=== PATIENT | female | born 1945 ===

== ENCOUNTER → 2017-10-22 10:54 | Outpatient (CLI) | payer MEDICARE, OTHER, SELFPAY ==
[2017-10-22 11:27] LABS: Absolute Basophil Count 0.02 k/cumm (0.0-0.2); Absolute Eosinophil Count 0.13 k/cumm (0.0-0.7); Absolute Lymphocyte Count 1.74 k/cumm (1.2-3.4); Absolute Monocyte Count 0.42 k/cumm (0.11-0.7); Absolute Neutrophil Count 2.97 k/cumm (1.2-6.7); Basophils % 0.4; Eosinophils % 2.5; HCT 41.7 % (36.0-46.0); HGB 13.6 g/dL (12.0-15.5); Mean Corp. HGB Concentration 32.6 g/dL (32.0-36.0); Mean Corpuscular Hemoglobin 31.4 pg (27.0-33.0); Mean Corpuscular Volume 96.3 fL (80-95); Mean Platelet Volume 9.9 fL (8.0-11.0); Neutrophils % 56.1; Platelet Count 201 x1000/uL (130-400); RBC 4.33 m/cumm (4.00-5.20); RBC Distribution Width 12.6 % (11.7-14.6); White Blood Cell Count 5.28 k/cumm (4.4-10.8)
[2017-10-22 12:15] LABS: TSH (W/Ref FT4) 2.36 uIU/mL (0.358-3.74)
== END ==
PROVIDERS: PCP Nurse Practitioner; Visit Provider Nurse Practitioner
DX: E11.9 Type 2 diabetes mellitus without complications (principal); R53.83 Other fatigue; R68.89 Other general symptoms and signs
CPT/HCPCS: 36415; 84443; 85025

== ENCOUNTER 2017-12-21 16:30 | Outpatient (CLI) | payer MEDICARE, OTHER, SELFPAY ==
--- NOTE | 2017-12-21 16:25 | DI.MAMMO_ITS ---
SYMPTOM/DIAGNOSIS: SCREENING, Z12.31 MAMMOGRAMS: Mammograms were interpreted according to the usual protocol including computer analysis with CAD system, tomosynthesis and C view imaging. Comparison with prior examinations. Breast density B. No masses or microcalcifications are seen. There is nothing to suggest malignancy. IMPRESSION: Negative mammogram. Routine screening is recommended. Category I. MQSA ASSESSMENT OF FINDINGS: Negative. Category 1. Patient will receive a letter notifying them of these results. BI-RADS category B. There are scattered areas of fibroglandular density.
== END 2017-12-21 16:50 ==
PROVIDERS: PCP Nurse Practitioner; Visit Provider Nurse Practitioner
DX: Z12.31 Encounter for screening mammogram for malignant neoplasm of breast (principal)
CPT/HCPCS: 77063; 77067

== ENCOUNTER 2018-04-27 07:16 | Outpatient (CLI) | payer MEDICARE, OTHER, SELFPAY ==
[2018-04-27 08:56] LABS: COMMENT (LAB VIEW ONLY) 51.97 mg/dL; Microalb ug/mg Crea 5.8 ug/mg Cr
[2018-04-27 09:23] LABS: ALT 35 U/L (12-78); AST 24 U/L (15-37); Albumin 4.1 g/dL (3.4-5.0); Alkaline Phosphatase 71 U/L (46-116); Anion Gap 8.3 mmol/L (3-11); BUN 16 mg/dL (7-18); Bilirubin, Total 0.4 mg/dL (0.2-1.0); CO2 30.7 mmol/L (21.0-32.0); CREATININE 0.81 mg/dL (0.55-1.02); Calcium 9.5 mg/dL (8.5-10.1); Chloride 102 mmol/L (98-107); Cholesterol 172 mg/dL (50-200); Ferritin 135 ng/mL (8-388); Glucose 153 mg/dL (70-100); HDL Cholesterol 49 mg/dL (40-60); LDL CHOLESTEROL 105 mg/dL (<100); Sodium 141 mmol/L (136-145); TSH (W/Ref FT4) 4.07 uIU/mL (0.358-3.74); Total Protein 7.8 g/dL (6.4-8.2); Triglyceride 83 mg/dL (30-150); Vitamin B12 1275 pg/mL (193-986)
[2018-04-27 09:52] LABS: FREE T4 0.94 ng/dL (0.76-1.46)
[2018-04-29 06:39] LABS: Vitamin D 25 Total 58.1 ng/ml (30-100)
== END 2018-04-27 07:36 ==
PROVIDERS: PCP Nurse Practitioner; Visit Provider Nurse Practitioner
DX: I10 Essential (primary) hypertension (principal); E78.5 Hyperlipidemia, unspecified; E11.9 Type 2 diabetes mellitus without complications; R53.83 Other fatigue
CPT/HCPCS: 80053; 80061; 82306; 83721; 82043; 82570; 82607; 82728; 84439; 84443

== ENCOUNTER 2019-04-21 20:53 | Observation (INO) | payer MEDICARE, OTHER, SELFPAY ==
[2019-04-21 20:56] VITALS: BP 160/121; PULSE 79; RESP 25; O2SAT 99
--- NOTE | 2019-04-21 20:57 | ED.GENADUL_ITS ---
Discharge Plan Disposition Patient Disposition: [facility] INPATIENT Condition: Fair Discharge Details Chief Complaint: Chest Pain Clinical Impression: Chest pain Primary Care Provider: Shilpi Castañeda ED Provider: Niraj [place] Meds and New Rx's Prescriptions: No Action metformin 500 mg tablet extended release 24hr 500 mg PO BID Qty: 180 RF: 3 calcium carbonate [Antacid Ext Str (calcium carb)] 300 mg (750 mg) tablet,chewable 300 mg PO .COMPLEX PRNRF: 0 acyclovir 800 mg tablet 800 mg PO Q8H Qty: 21 RF: 1 VALERIAN 400 MG capsule 400 mg PO RF: 0 aspirin [Aspir-Low] 81 MG tablet,delayed release (DR/EC) 81 mg PO DAILY RF: 0 acetaminophen 325 MG tablet 325 mg PO PRN RF: 0 vitamin B complex 1 EACH capsule 1 ea PO DAILY RF: 0 glucosamine sulfate 2KCl 1,000 MG tablet 1,000 mg PO BID RF: 0 acetylcarnitine 500 MG capsule 500 mg PO DAILY RF: 0 chromium amino acid chelate 400 MCG tablet 200 mcg PO BID RF: 0 Lulú-C with Bioflavonoids 1 EACH tablet 1 ea PO DAILY RF: 0 magnesium citrate 100 MG tablet 200 mg PO DAILY RF: 0 oil of oregano 150 DAILY RF: 0 Micky-E (Enteric Coated) 200 MG tablet,delayed release (DR/EC) 200 mg PO DAILY RF: 0 MindscapeUCH ULTRA TEST STRIPS 1 EACH strip 1 ea Miscellaneous DAILY Qty: 1 RF: 11 lysine 500 mg tablet 500 mg PO DAILY PRNRF: 0 cbd PO DAILY PRN PRNRF: 0 cod liver oil Capsule 1 cap PO DAILY RF: 0 Estring 2 mg (7.5 mcg /24 hour) ring 1 vag ring VG [id number] Qty: 1 RF: 6 Medical Decision Making Patient presenting with 2 hours of worsening chest pain that is described as pressure but also pleuritic. Has shortness of breath but more so in that it hurts to take a breath. Some radiation to her shoulders and back. Differential includes dissection, PE, ACS, chest wall pain. She is status post cholecystectomy so not referred gallbladder pain. IV established. Laboratory studies ordered. EKG is nondiagnostic. Patient given aspirin and nitroglycerin. CT scan of the chest ordered. 23:15 - Patient's labs significant for elevated WBC to 14.76 with normal Hgb. She has multiple electrolyte abnormalities with sodium of 130, potassium of 3.2, magnesium of 1.5 with normal kidney function. She is not on diuretics. She is getting IVF and is ordered for oral potassium and IV magnesium replacement. First troponin is negative. CTA of chest shows no PE or dissection. There is evidence of bronchitis/bronchiolitis but no pneumonia. There is also suggestion of small pericardial effusion/thickening which is suggestive of pericarditis. This would fit her clinical picture despite there being no EKG changes currently to support that. In any event her HEART score is a 4 and she should be admitted for serial enzymes. Would consider pericarditis before ACS at this point though. Discussed all of the above with patient and . Discussed with hospitalist. Patient will be admitted overnight for further evaluation and monitoring. Medical Records Medical records reviewed: Yes I reviewed the patient's medical records. Lab Data Lab results reviewed: Yes I reviewed the patient's lab results. ECG Data Attestation: I personally reviewed and interpreted this ECG (s) as follows: Prior ECG tracings: available for review Interpretation: Sinus rhythm at 89. Normal intervals and axis. Nonspecific ST changes but no acute findings. Nondiagnostic. HPI General Mode of arrival: wheelchair . Date/Time Provider Initiated Documentation: 04/21/19 20:54 . Limitations to Documentation: no limitations . Information obtained by: patient, RN notes reviewed and old records reviewed . HPI Narrative: Patient presents to ED with complaint of severe substernal chest pain/pressure that she reports is worse with breathing or movement. Onset was about 7 PM and worsened to the point where she decided she needed to be evaluated. She reports that there was some pain in her shoulders and back although now seems to mostly be in the chest. There is no nausea vomiting. There is no lightheadedness or dizziness. There is no diaphoresis. She does feel short of breath but more so that she cannot take a deep breath because of pain. She has never had this previously. She does have history of diabetes and hyperlipidemia but is no prior history of cardiac disease. She does report being ill with a URI for the last week or so although those symptoms have been resolving. She has no leg pain or leg swelling. Related Data Home Medications Medication Instructions Recorded Confirmed Valerian 400 mg PO 05/04/12 10/19/18 aspirin [Aspir-Low] 81 mg PO DAILY tab-cap 09/14/12 04/21/19 Oil Of Oregano 150 DAILY 01/29/17 10/19/18 acetaminophen 325 mg PO PRN 01/29/17 04/21/19 acetylcarnitine 500 mg PO DAILY 01/29/17 04/21/19 ascorbate calcium-bioflavonoid 1 ea PO DAILY 01/29/17 04/21/19 [Lulú-C 1,000 Mg Tablet] chromium amino acid chelate 200 mcg PO BID 01/29/17 04/21/19 glucosamine sulfate 2KCl 1,000 mg PO BID 01/29/17 04/21/19 magnesium citrate 200 mg PO DAILY 01/29/17 04/21/19 vitamin B complex 1 ea PO DAILY 01/29/17 04/21/19 s-adenosylmethionine [Micky-E] 200 mg PO DAILY 05/26/17 04/21/19 lysine 500 mg tablet 500 mg PO DAILY PRN 04/21/18 04/21/19 metformin 500 mg tablet,extended 500 mg PO BID #180 tab-cap 04/21/18 04/21/19 release 24hr acyclovir 800 mg tablet 800 mg PO Q8H #21 tab 10/19/18 04/21/19 calcium carbonate 300 mg (750 mg) 300 mg PO .COMPLEX PRN 10/19/18 04/21/19 chewable tablet cbd PO DAILY PRN PRN 10/19/18 cod liver oil 1 cap PO DAILY cap 10/19/18 04/21/19 estradiol 1 vag ring VG [id number] #1 vag.ring 12/09/18 04/21/19 Previous Rx's Medication Instructions Recorded metformin 500 mg tablet,extended 500 mg PO BID #180 tab-cap 04/21/18 release 24hr acyclovir 800 mg tablet 800 mg PO Q8H #21 tab 10/19/18 estradiol 1 vag ring VG [id number] #1 vag.ring 12/09/18 Allergies Allergy/AdvReac Type Severity Reaction Status Date / Time gluten Allergy Unknown GI Unverified 04/21/19 21:29 paraben Allergy Unknown headache, Unverified 04/21/19 21:29 LINE RIDER lactose Allergy GI Unverified 04/21/19 21:29 formaldehyde AdvReac Headache, Unverified 04/21/19 21:29 LINE RIDER ZIO PATCH Allergy Intermediate red rash, Uncoded 04/21/19 21:29 itching, burning sensation Review of Systems Narrative: 12/06 Review of Systems completed and is negative except as stated above in HPI (Systems reviewed: Const, Eyes, ENT, Resp, CV, GI, , MSK, Skin, Neuro) [facility] Medical History Anxiety disorder, unspecified (Chronic 09/14/12) Chronic low back pain (Chronic 04/01/16) Depression (Chronic 04/01/16) Diabetes mellitus type 2, controlled (Chronic 09/14/12) 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 Hypertensive and tachypneic but no tachycardia and normal room air pulse oximetry. Const: WDWN elderly female moaning and wincing in pain. HEENT: NC/AT. Normal facial exam. Eyes: Normal conjunctiva and sclera. Neck: Supple. Trachea midline. Lungs: Normal respiratory effort. Lungs are clear. Tender to palpation lower left parasternum. Cor: RRR without murmur/gallop. Good distal pulses. GI: Soft. NT/ND. No guarding or rebound. Neuro: A+O x 3. Normal speech, mentation, gait. Cranial nerves II - XII grossly intact. No gross motor or sensory deficit. Ext: No C/C/E. No calf tenderness. Skin: Warm and dry without rash.
[2019-04-21 21:06] VITALS: BP 159/77; PULSE 86; RESP 17; O2SAT 98
[2019-04-21] MEDS: Aspirin 81 MG CHEW 324 MG CH (21:18)
[2019-04-21] MEDS: Lactated Ringers 1,000 ML 125 ML IV (21:25)
[2019-04-21 21:27] VITALS: BP 110/73; PULSE 90; RESP 16; O2SAT 97
[2019-04-21 21:34] LABS: Abs Immature Grans 0.03 k/cumm (0.0-0.09); Absolute Lymphocyte Count 2.35 k/cumm (1.2-3.4); Absolute Monocyte Count 1.18 k/cumm (0.11-0.7); Absolute Neutrophil Count 10.98 k/cumm (1.2-6.7); Basophils % 0.1; Eosinophils % 1.4; HCT 39.4 % (36.0-46.0); HGB 13.6 g/dL (12.0-15.5); Immature Grans % 0.2 %; Lymphocytes % 15.9; Mean Corp. HGB Concentration 34.5 g/dL (32.0-36.0); Mean Corpuscular Hemoglobin 32.4 pg (27.0-33.0); Mean Corpuscular Volume 93.8 fL (80-95); Mean Platelet Volume 9.5 fL (8.0-11.0); Neutrophils % 74.4; Platelet Count 242 x1000/uL (130-400); White Blood Cell Count 14.76 k/cumm (4.4-10.8)
[2019-04-21 21:38] LABS: Absolute Basophil Count 0.01 k/cumm (0.0-0.2); Absolute Eosinophil Count 0.21 k/cumm (0.0-0.7)
[2019-04-21 21:47] LABS: Prothrombin Time 10.1 sec (9.3-11.0)
[2019-04-21 21:52] LABS: ALT 31 U/L (14-59); AST 23 U/L (15-37); Albumin 4.2 g/dL (3.4-5.0); Alkaline Phosphatase 72 U/L (46-116); Anion Gap 11.3 mmol/L (3-11); BUN 17 mg/dL (7-18); Bilirubin, Total 0.5 mg/dL (0.2-1.0); CO2 25.7 mmol/L (21.0-32.0); CREATININE 0.89 mg/dL (0.55-1.02); Chloride 93 mmol/L (98-107); Glucose 162 mg/dL (74-106); Magnesium 1.5 mg/dL (1.8-2.4); Potassium 3.2 mmol/L (3.5-5.1); Sodium 130 mmol/L (136-145); Total Protein 7.9 g/dL (6.4-8.2)
[2019-04-21 21:54] LABS: Troponin I < 0.05 ng/Ml (<0.06)
[2019-04-21 21:59] VITALS: BP 116/73; PULSE 78; RESP 16; O2SAT 97
--- NOTE | 2019-04-21 22:24 | DI.CT_ITS ---
EXAM: CT CHEST PE CTA CLINICAL HISTORY: chest pain, pleuritic; radiates to back TECHNIQUE: Post IV contrast according to pulmonary embolism protocol. COMPARISON: ABD/PELVIS WO W CONTRAST from 10/02/2010 FINDINGS: There is no evidence of pulmonary emboli or aortic dissection. There is a trace pericardial effusio n versus pericardial thickening. The lungs are expiratory and show some motion. No focal area of co nsolidation or effusion is seen. Degenerative changes are seen in the thoracic spine. The visualize d portions of the upper abdomen are unremarkable. IMPRESSION: No evidence of pulmonary emboli or other acute abnormality.
[2019-04-21] MEDS: Normal Saline - Diluent 50 ML VIAL IV (22:32)
[2019-04-21] MEDS: Omnipaque 350 MG/ML 100 ML BTL 64 ML IJ (22:34)
[2019-04-21 22:43] VITALS: BP 116/79; PULSE 89; RESP 16; O2SAT 97
--- NOTE | 2019-04-21 22:57 | DI.VRAD_ITS ---
PROCEDURE INFORMATION: Exam: CT Angiography Chest With Contrast Exam date and time: 04/21/2019 9:14 PM Age: 73 years old Clinical indication: Pleuordynia; Patient HX: Chest pain, pleuritic radiates to back. TECHNIQUE: Imaging protocol: Computed tomographic angiography of the chest with intravenous contrast. 3D rendering: MIP and/or 3D reconstructed images were created by the technologist. Radiation optimization: All CT scans at this facility use at least one of these dose optimization techniques: automated exposure control; mA and/or kV adjustment per patient size (includes targeted exams where dose is matched to clinical indication); or iterative reconstruction. Contrast material: OMNI-PAQUE 350; Contrast volume: 64 ml; Contrast route: IV; COMPARISON: No relevant prior studies available. FINDINGS: Pulmonary arteries: The pulmonary arteries enhance appropriately with no evidence of pulmonary embolism. Aorta: The aorta enhances appropriately without evidence of dissection or aneurysm. Mild aortic ectasia. Thyroid: The visualized thyroid gland demonstrates no gross abnormality. Lungs: Bilateral bronchial wall thickening suggesting bronchitis or bronchial edema.Patchy mild bilateral mosaic alveolar attenuation probably related to bronchitis/bronchiolitis with mild regional air trapping and atelectasis. No consolidative pulmonary infiltrates. No pulmonary nodules or mass lesions are identified. Pleural space: No pleural effusion. No pneumothorax. Heart: Mild cardiomegaly. Small pericardial effusion versus pericardial thickening. Mediastinum: The esophagus is largely contracted but demonstrates no gross abnormality. Lymph nodes: No supraclavicular or axillary adenopathy. No mediastinal or hilar adenopathy. Bones/joints: No acute osseous abnormalities are identified. Soft tissues: The soft tissues of the chest wall demonstrate no acute abnormality. Other findings: Visualized upper abdominal structures are unremarkable. IMPRESSION: 1. No evidence of pulmonary embolism or aortic dissection. 2. Bilateral bronchial wall thickening suggesting bronchitis or bronchial edema. There is also patchy mild bilateral mosaic alveolar attenuation probably related to bronchitis and bronchiolitis with patchy subsegmental atelectasis and regional air trapping. Mild pulmonary edema or patchy pulmonary infiltrates are considered less likely. 3. Small pericardial effusion versus pericardial thickening. Mild pericarditis could produce this appearance. Dictated and Authenticated by: Manny Sharma MD. Ordering:NANDO Healy MD
--- NOTE | 2019-04-21 23:17 | W.PM.HP.N ---
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 She has had a 7-day history of a viral syndrome and more recently was fatigued but did not have significant fever throughout her 7-day illness. her chest CT did reveal some bronchiolitis and possible pericarditis though she is not having typical EKG changes of pericarditis. She is hesitant to take NSAIDs. I will follow-up sed rate in the morning and she will have an echocardiogram with exercise stress test if allowed in the morning. If her echocardiogram is consistent with pericarditis symptoms persist she may be placed on a course of NSAIDs. She is not allergic to NSAIDs. She does take aspirin. She will also have her troponins trended overnight. Monitor with telemetry. She is a full code. (2) Electrolyte abnormality: Start date: 04/21/19 Status: Acute Assessment and plan: These may be associate with her recent illness and change in usual diet. She will be placed on lactated Ringer's for IV hydration and she was given magnesium IV in the ED. She also was given oral potassium replacement. Labs will be followed in the morning. (3) Bronchiolitis: Start date: 04/21/19 Status: Acute Assessment and plan: She could have a post viral bronchiolitis with symptoms of pleurisy with discomfort with inspiration during her episode. This will be treated symptomatically. She did respond to iv morphine but will be continued overnight. (4) Diabetes mellitus type 2, controlled: Status: Chronic Assessment and plan: Metformin will be held and the patient will be placed on dual coverage short acting insulin. She did just receive IV dye and her metformin to be held for least 48 hours. Qualifiers: Diabetes mellitus complication status: with unspecified complications Diabetes mellitus detention insulin use: without green promotions specialist use Qualified Code(s): E11.8 - Type 2 diabetes mellitus with unspecified complications History of Present Illness History of Present Illness Chief Complaint: Chest and neck pain Narrative: This is a 73-year-old lady who had a viral type illness several days prior to admission beginning with diarrhea and GI symptoms progressing to upper respiratory symptoms. The last day or so she has felt more fatigued and was trying to rest and to resolve with natural treatments. The night of presentation the patient began to have sternal chest pain and pressure which radiated into her neck with severe muscle spasm of the sternocleidomastoid muscles as she describes them, and some radiation into the back though most recently worked up front in her chest wall and underneath her sternum. It also hurts to breathe. She denied any fever or chills and had no rigors. She had no diaphoresis or nausea and did not feel dizzy. Her had had cardiac symptoms in the past and was concerned that this may be a heart attack therefore they came to the ED for evaluation. In the ED she was evaluated with a CTA which did reveal bronchitis bronchiolitis with patches appearing viral and possible pericardial fluid. Initial enzymes were negative but she did have some electrolyte abnormalities are being corrected with supplements. At the time I saw the patient she was comfortable, lying in bed with no discomfort except stating that her discomfort was slightly returning over her chest and that the morphine did not help relieve her discomfort. We will be giving her more morphine during the night. To admitted for observation for atypical chest pain for follow-up on possible pericarditis though the patient is hesitant to take NSAIDs. At this time she is comfortable and there is no need for other treatment as we monitor her symptoms. Review of Systems Narrative: 13 point review of systems otherwise unrevealing or stabilizing from her acute symptoms of the last 7 days. 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 She has no GI symptoms upon presentation. 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 Pets and animals: Yes What type of physical activity do you participate in: occasional exercise and yoga Frequency: 5-6 times per week Additional Social history: unable to assess Meds Home Medications and Allergies Home Medications Medication Instructions Recorded Confirmed Type Valerian 400 mg PO 05/04/12 10/19/18 History aspirin [Aspir-Low] 81 mg PO DAILY tab-cap 09/14/12 04/21/19 History Oil Of Oregano 150 DAILY 01/29/17 10/19/18 History acetaminophen 325 mg PO PRN 01/29/17 04/21/19 History acetylcarnitine 500 mg PO DAILY 01/29/17 04/21/19 History ascorbate calcium-bioflavonoid 1 ea PO DAILY 01/29/17 04/21/19 History [Lulú-C 1,000 Mg Tablet] chromium amino acid chelate 200 mcg PO BID 01/29/17 04/21/19 History glucosamine sulfate 2KCl 1,000 mg PO BID 01/29/17 04/21/19 History magnesium citrate 200 mg PO DAILY 01/29/17 04/21/19 History vitamin B complex 1 ea PO DAILY 01/29/17 04/21/19 History s-adenosylmethionine [Micky-E] 200 mg PO DAILY 05/26/17 04/21/19 History Onetouch Ultra Test Strips 1 ea MISCELLANEOUS DAILY #1 strip 10/23/17 10/19/18 Clinic lysine 500 mg tablet 500 mg PO DAILY PRN 04/21/18 04/21/19 History metformin 500 mg tablet,extended 500 mg PO BID #180 tab-cap 04/21/18 04/21/19 Rx release 24hr acyclovir 800 mg tablet 800 mg PO Q8H #21 tab 10/19/18 04/21/19 Rx calcium carbonate 300 mg (750 mg) 300 mg PO .COMPLEX PRN 10/19/18 04/21/19 History chewable tablet cbd PO DAILY PRN PRN 10/19/18 History cod liver oil 1 cap PO DAILY cap 10/19/18 04/21/19 History estradiol 1 vag ring VG [id number] #1 vag.ring 12/09/18 04/21/19 Rx Allergies Allergy/AdvReac Type Severity Reaction Status Date / Time gluten Allergy Unknown GI Unverified 04/21/19 21:29 paraben Allergy Unknown headache, Unverified 04/21/19 21:29 LOGGING OPERATIONS INSPECTOR lactose Allergy GI Unverified 04/21/19 21:29 formaldehyde AdvReac Headache, Unverified 04/21/19 21:29 LOGGING OPERATIONS INSPECTOR ZIO PATCH Allergy Intermediate red rash, Uncoded 04/21/19 21:29 itching, burning sensation Exam Narrative Exam Narrative: General: Patient appears younger than stated age, in no acute distress and very talkative. She is alert and oriented x3. HEENT: Normocephalic, eyes with pupils equal and reactive to light symmetrically, sclera anicteric and extraocular movement intact without nystagmus. Ears normal with clear EACs and tympanic membranes normal bilaterally. Oropharynx with dry oral mucosa and no exudates. No erythema. Neck: Supple without JVD. Lungs: Clear to auscultation percussion with no focalizing rales or rhonchi. Heart: Regular rate and rhythm with no gallops murmurs or rubs. Breast: Exam deferred. Chest wall: Nontender to palpation over the sternal border. Chest wall moves symmetrically with inspiration. Back: Without CVA tenderness. Abdomen: Normal contour, soft and nontender to palpation with no palpable hepatosplenomegaly. Bowel sounds positive in all quadrants. Genitalia/rectal: Exam deferred. Extremities: Nonpitting edema both lower extremities with no clubbing or cyanosis. No joint swelling. Peripheral pulses intact. Neuro: Cranial nerves II through XII grossly intact. No focal motor deficits. Sensory grossly intact. Skin: Pale, warm and dry. Lymph: No generalized lymphadenopathy. Psych: Normal affect and times euphoric, normal mood with remote and recent memory intact. Results Imaging Imaging Studies: Exam: CT Angiography Chest With Contrast Exam date and time: 04/21/2019 9:14 PM Age: 73 years old Clinical indication: Pleuordynia; Patient HX: Chest pain, pleuritic radiates to back. TECHNIQUE: Imaging protocol: Computed tomographic angiography of the chest with intravenous contrast. 3D rendering: MIP and/or 3D reconstructed images were created by the technologist. Radiation optimization: All CT scans at this facility use at least one of these dose optimization techniques: automated exposure control; mA and/or kV adjustment per patient size (includes targeted exams where dose is matched to clinical indication); or iterative reconstruction. Contrast material: OMNI-PAQUE 350; Contrast volume: 64 ml; Contrast route: IV; COMPARISON: No relevant prior studies available. FINDINGS: Pulmonary arteries: The pulmonary arteries enhance appropriately with no evidence of pulmonary embolism. Aorta: The aorta enhances appropriately without evidence of dissection or aneurysm. Mild aortic ectasia. Thyroid: The visualized thyroid gland demonstrates no gross abnormality. Lungs: Bilateral bronchial wall thickening suggesting bronchitis or bronchial edema.Patchy mild bilateral mosaic alveolar attenuation probably related to bronchitis/bronchiolitis with mild regional air trapping and atelectasis. No consolidative pulmonary infiltrates. No pulmonary nodules or mass lesions are identified. Pleural space: No pleural effusion. No pneumothorax. Heart: Mild cardiomegaly. Small pericardial effusion versus pericardial thickening. Mediastinum: The esophagus is largely contracted but demonstrates no gross abnormality. Lymph nodes: No supraclavicular or axillary adenopathy. No mediastinal or hilar adenopathy. Bones/joints: No acute osseous abnormalities are identified. Soft tissues: The soft tissues of the chest wall demonstrate no acute abnormality. Other findings: Visualized upper abdominal structures are unremarkable. IMPRESSION: 1. No evidence of pulmonary embolism or aortic dissection. 2. Bilateral bronchial wall thickening suggesting bronchitis or bronchial edema. There is also patchy mild bilateral mosaic alveolar attenuation probably related to bronchitis and bronchiolitis with patchy subsegmental atelectasis and regional air trapping. Mild pulmonary edema or patchy pulmonary infiltrates are considered less likely. 3. Small pericardial effusion versus pericardial thickening. Mild pericarditis could produce this appearance. Dictated and Authenticated by: Manny Sharma MD Labs Result diagrams: 04/21/19 21:06 04/21/19 21:06 Labs: Laboratory Results - last 24 hr 04/21/19 04/21/19 04/21/19 21:06 21:06 21:06 WBC 14.76 H RBC 4.20 Hgb 13.6 Hct 39.4 MCV 93.8 MCH 32.4 MCHC 34.5 RDW 12.0 Plt Count 242 MPV 9.5 Immature Gran % 0.2 Neutrophils % 74.4 Lymphocytes % 15.9 Monocytes % 8.0 Eosinophils % 1.4 Basophils % 0.1 Absolute Neutrophils 10.98 H Absolute Lymphocytes 2.35 Absolute Monocytes 1.18 H Absolute Eosinophils 0.21 Absolute Basophils 0.01 PT 10.1 INR 1.0 APTT 25.0 Sodium 130 L Potassium 3.2 L Chloride 93 L Carbon Dioxide 25.7 Anion Gap 11.3 H BUN 17 Creatinine 0.89 Estimated GFR/1.73 m2 >= 60.00 Glucose 162 H Calcium 9.0 Magnesium 1.5 L Total Bilirubin 0.5 AST 23 ALT 31 Alkaline Phosphatase 72 Troponin I < 0.05 Total Protein 7.9 Albumin 4.2 Last Vital Signs Pulse 89 04/21/19 22:43 Resp 16 04/21/19 22:43 BP 116/79 04/21/19 22:43 Pulse Ox 97 04/21/19 22:43
[2019-04-21] MEDS: MAGNESIUM SULFATE 2 GM/50 ML BAG IVPB (23:25)
[2019-04-21] MEDS: Potassium Chloride 20 MEQ TABCR 40 MEQ PO (23:31)
[2019-04-21 23:42] VITALS: BP 137/54; PULSE 98; RESP 19; O2SAT 97
[2019-04-22] VITALS (7 sets, daily range): BP systolic 92–127; BP diastolic 52–77; PULSE 92–101; RESP 18–20; TEMP 36.7–38; O2SAT 95–97
[2019-04-22 01:20] LABS: Troponin I < 0.05 ng/Ml (<0.06)
[2019-04-22] MEDS: Enoxaparin 30 MG/0.3 ML SYR SC (01:25)
[2019-04-22] MEDS: Normal Saline Flush 10 ML SYR IVP ×2 (02:24→10:10)
[2019-04-22] MEDS: Lactated Ringers 1,000 ML 125 ML IV (04:33)
[2019-04-22] MEDS: Acetaminophen 325 MG TAB 650 MG PO (07:32)
[2019-04-22 07:37] LABS: HCT 37.7 % (36.0-46.0); HGB 12.7 g/dL (12.0-15.5); Mean Corp. HGB Concentration 33.7 g/dL (32.0-36.0); Mean Corpuscular Hemoglobin 31.6 pg (27.0-33.0); Mean Corpuscular Volume 93.8 fL (80-95); Mean Platelet Volume 9.7 fL (8.0-11.0); Platelet Count 220 x1000/uL (130-400); RBC 4.02 m/cumm (4.00-5.20); RBC Distribution Width 12.2 % (11.7-14.6); White Blood Cell Count 9.62 k/cumm (4.4-10.8)
[2019-04-22 07:54] LABS: Troponin I < 0.05 ng/Ml (<0.06)
[2019-04-22 08:21] LABS: ESR 21 mm/hr (0-30)
[2019-04-22 08:57] LABS: ALT 27 U/L (14-59); AST 20 U/L (15-37); Albumin 3.6 g/dL (3.4-5.0); Alkaline Phosphatase 62 U/L (46-116); Anion Gap 9.2 mmol/L (3-11); BUN 12 mg/dL (7-18); Bilirubin, Total 0.6 mg/dL (0.2-1.0); CO2 25.8 mmol/L (21.0-32.0); CREATININE 0.82 mg/dL (0.55-1.02); Calcium 8.4 mg/dL (8.5-10.1); Chloride 99 mmol/L (98-107); Glucose 145 mg/dL (74-106); Magnesium 1.9 mg/dL (1.8-2.4); Potassium 4.2 mmol/L (3.5-5.1); Sodium 134 mmol/L (136-145); Total Protein 6.6 g/dL (6.4-8.2)
[2019-04-22 09:03] LABS: TSH (W/Ref FT4) 2.67 uIU/mL (0.36-3.74)
[2019-04-22] MEDS: Ketorolac 30 MG/ML VIAL IVP (10:09)
[2019-04-22] MEDS: Aspirin E.C. 81 MG TABEC PO (10:09)
[2019-04-22] MEDS: Enoxaparin 40 MG/0.4 ML SYR SC (10:10)
[2019-04-22] MEDS: Pantoprazole 40 MG VIAL IVP (10:11)
--- NOTE | 2019-04-22 13:14 | DSE_ITS ---
Date of service: 04/22/19 Time of Service: 13:14 DS: Diagnosis Discharge Diagnosis (1) Atypical chest pain: Start date: 04/22/19 Start time: 13:14 Status: Resolved Asessment and Plan: Atypical chest pain likely from viral syndrome, pericarditis with chostochondritis. Take ibuprofen 600 mg as needed for pain. Pain relief with toradol. (2) Electrolyte abnormality: Start date: 04/22/19 Start time: 13:15 Status: Resolved Asessment and Plan: Electrolytes repleted (3) Bronchiolitis: Start date: 04/22/19 Start time: 13:15 Status: Acute Asessment and Plan: From viral syndrome. Afebrile no leukocytosis. (4) Diabetes mellitus type 2, controlled: Start date: 04/22/19 Start time: 13:15 Status: Chronic Asessment and Plan: Do not take metformin for 48 hours. Patient had CTA. Discharge Plan Disposition Patient Disposition: HOME Condition: Improving Discharge Details Chief Complaint: Chest Pain Clinical Impression: Chest pain Reason For Visit: ATYPICAL CHEST PSIN Admit Date/Time: 04/21/19 23:20 Admit Provider: Adan Jerngian Attending Provider: Adna Jernigan Primary Care Provider: Shilpi Castañeda [facility]: 73 y.o female with PMH of DM2, anxiety, HLD, hypothyroid admitted from [facility] ED for atypical chest pain. Patient presented to ED after 5 days of cough, fever, congestion. Upon presentation patient stated she had severe chest pain in the center of her chest that radiated through her back, lasting about an hour. Today she c/o having a bruised feeling to chest worse with breathing in. Assessment revealing pain worse with palpation. Labs and imaging in the ED remarkable for low potassium, hyponatremia, hypomagnesium. Imaging revealing, pericarditis and brochiolitis. Labs today with normal k and mag level. Patient anxious wants to go home. Agreed to toradol injection with relief of symptoms. Echo with EF 60% no abnormalities with structure or function. Patient is being discharged home. Recommend ibuporfen for pain relief. Follow up with PCP in 2 weeks. Home Meds and New Rx's Prescriptions: New azithromycin 250 mg tablet See Rx Instructions .ROUTE .COMPLEX Qty: 6 RF: 0 Continued metformin 500 mg tablet extended release 24hr 500 mg PO BID Qty: 180 RF: 3 calcium carbonate [Antacid Ext Str (calcium carb)] 300 mg (750 mg) tablet,chewable 300 mg PO .COMPLEX PRNRF: 0 acyclovir 800 mg tablet 800 mg PO Q8H Qty: 21 RF: 1 VALERIAN 400 MG capsule 400 mg PO RF: 0 aspirin [Aspir-Low] 81 MG tablet,delayed release (DR/EC) 81 mg PO DAILY RF: 0 acetaminophen 325 MG tablet 325 mg PO PRN RF: 0 vitamin B complex 1 EACH capsule 1 ea PO DAILY RF: 0 glucosamine sulfate 2KCl 1,000 MG tablet 1,000 mg PO BID RF: 0 acetylcarnitine 500 MG capsule 500 mg PO DAILY RF: 0 chromium amino acid chelate 400 MCG tablet 200 mcg PO BID RF: 0 Lulú-C with Bioflavonoids 1 EACH tablet 1 ea PO DAILY RF: 0 magnesium citrate 100 MG tablet 200 mg PO DAILY RF: 0 oil of oregano 150 DAILY RF: 0 Micky-E (Enteric Coated) 200 MG tablet,delayed release (DR/EC) 200 mg PO DAILY RF: 0 Appbyme ULTRA TEST STRIPS 1 EACH strip 1 ea Miscellaneous DAILY Qty: 1 RF: 11 lysine 500 mg tablet 500 mg PO DAILY PRNRF: 0 cbd PO DAILY PRN PRNRF: 0 cod liver oil Capsule 1 cap PO DAILY RF: 0 Estring 2 mg (7.5 mcg /24 hour) ring 1 vag ring VG [id number] Qty: 1 RF: 6 Discharge Instructions Instructions: Antihistamine/Antitussive (By mouth), Bronchiolitis (DC), Costochondritis (DC), Acute Pericarditis (DC), Viral Syndrome (GEN), Acute Cough (GEN) Additional Instructions: Take azithromycin in 3 days if you still are having productive cough and sputum. Take ibuprofen 600 mg twice daily as needed for pain Follow up with your primary provider in 2 weeks. Activity:: Activity as Tolerated Equipment/Supplies:: No Equipment Needed Diet:: Carb Counting Discharge Orders Discharge Orders: Discharge Order (Routine); Ordered 04/22/19 Ordered By: Linda Medina DS: Summary Status at Discharge Functional status at discharge: independent ambulation Overall status at discharge: patient is back to baseline Mental Status: mental status grossly normal Speech and Movement: speech and movement normal Mood: anxious mood Affect: normal affect Exam Const General: cooperative, healthy appearing and no acute distress Nutritional Appearance: average body habitus [facility] Head: normal to inspection, normocephalic and atraumatic General nose exam: external nose normal Eyes Pupils: PERRL EOM: EOM intact bilaterally Neck Neck: normal visual inspection Carotids: normal carotid upstroke Lymphatic: no lymphadenopathy noted and no lymphedema noted Chest Chest: normal inspection of the chest and tenderness costochondral junction and costal cartilage Resp Effort & Inspection: normal respiratory effort Auscultation: clear to auscultation bilaterally Cardio Jugular venous pressure: no JVD Rate: regular rate Rhythm: regular rhythm Heart Sounds: S1 normal and S2 normal GI Inspection: normal to inspection Palpation: soft and no hepatosplenomegaly Back/Spine/Pelvis Back: no CVA tenderness Thoracic/Lumbar Spine: thoracic and lumbar spine normal to inspection Skin General skin exam: no rashes or lesions noted Neuro General: alert, awake and oriented x3 Extrem General: normal to inspection, full ROM and no clubbing, cyanosis or edema Psych Mental Status: mental status grossly normal Speech and Movement: speech and movement normal Mood: anxious mood Affect: normal affect DS: Data Vitals/I&O Vitals and I&O: Vital Signs Temperature 37.2 C 04/22/19 08:40 Temperature Source Tympanic 04/22/19 08:40 Pulse 101 H 04/22/19 12:32 Pulse Rhythm Regular 04/22/19 00:05 Respiratory Rate 18 04/22/19 08:40 Respiratory Effort Non-Labored 04/22/19 00:05 Respiratory Depth Normal 04/22/19 00:05 Respiratory Pattern Normal 04/22/19 00:05 Blood Pressure 114/69 04/22/19 08:40 Pulse Oximetry 95 04/22/19 08:40 Oxygen Delivery Method Room Air 04/22/19 08:40 Oxygen Flow Rate 0 04/22/19 08:40 Pain Level 3 04/22/19 10:09 Comment 04/22/19 00:05 Intake & Output 04/21/19 04/22/19 04/22/19 23:59 11:59 23:59 Intake Total 941.667 / 941.667 Balance 941.667 / 941.667 Weight 69.4 kg 74.1 kg Intake: IV 941.667 / 941.667 Other: Urine Color Yellow Urine Appearance Clear Urine Odor None Voiding Methods Toilet Data Completed and Pending Completed studies during hospitalization [Text1]: IMPRESSION: 1. No evidence of pulmonary embolism or aortic dissection. 2. Bilateral bronchial wall thickening suggesting bronchitis or bronchial edema. There is also patchy mild bilateral mosaic alveolar attenuation probably related to bronchitis and bronchiolitis with patchy subsegmental atelectasis and regional air trapping. Mild pulmonary edema or patchy pulmonary infiltrates are considered less likely. 3. Small pericardial effusion versus pericardial thickening. Mild pericarditis could produce this appearance. Labs on day of discharge: Labs from last 24 hours 04/22/19 04/22/19 04/22/19 06:05 06:05 06:05 WBC 9.62 D RBC 4.02 Hgb 12.7 Hct 37.7 MCV 93.8 MCH 31.6 MCHC 33.7 RDW 12.2 Plt Count 220 MPV 9.7 Immature Gran % Neutrophils % Lymphocytes % Monocytes % Eosinophils % Basophils % Absolute Neutrophils Absolute Lymphocytes Absolute Monocytes Absolute Eosinophils Absolute Basophils ESR 21 PT INR APTT Sodium 134 L Potassium 4.2 D Chloride 99 Carbon Dioxide 25.8 Anion Gap 9.2 BUN 12 Creatinine 0.82 Estimated GFR/1.73 m2 >= 60.00 Glucose 145 H Calcium 8.4 L Magnesium 1.9 Total Bilirubin 0.6 AST 20 ALT 27 Alkaline Phosphatase 62 Troponin I Total Protein 6.6 Albumin 3.6 TSH 04/22/19 04/22/19 04/22/19 06:05 06:05 00:50 WBC RBC Hgb Hct MCV MCH MCHC RDW Plt Count MPV Immature Gran % Neutrophils % Lymphocytes % Monocytes % Eosinophils % Basophils % Absolute Neutrophils Absolute Lymphocytes Absolute Monocytes Absolute Eosinophils Absolute Basophils ESR PT INR APTT Sodium Potassium Chloride Carbon Dioxide Anion Gap BUN Creatinine Estimated GFR/1.73 m2 Glucose Calcium Magnesium Total Bilirubin AST ALT Alkaline Phosphatase Troponin I < 0.05 < 0.05 Total Protein Albumin TSH 2.67 04/21/19 04/21/19 04/21/19 21:06 21:06 21:06 WBC 14.76 H RBC 4.20 Hgb 13.6 Hct 39.4 MCV 93.8 MCH 32.4 MCHC 34.5 RDW 12.0 Plt Count 242 MPV 9.5 Immature Gran % 0.2 Neutrophils % 74.4 Lymphocytes % 15.9 Monocytes % 8.0 Eosinophils % 1.4 Basophils % 0.1 Absolute Neutrophils 10.98 H Absolute Lymphocytes 2.35 Absolute Monocytes 1.18 H Absolute Eosinophils 0.21 Absolute Basophils 0.01 ESR PT 10.1 INR 1.0 APTT 25.0 Sodium 130 L Potassium 3.2 L Chloride 93 L Carbon Dioxide 25.7 Anion Gap 11.3 H BUN 17 Creatinine 0.89 Estimated GFR/1.73 m2 >= 60.00 Glucose 162 H Calcium 9.0 Magnesium 1.5 L Total Bilirubin 0.5 AST 23 ALT 31 Alkaline Phosphatase 72 Troponin I < 0.05 Total Protein 7.9 Albumin 4.2 TSH 04/22/19 07:45 Pharynx Streptococcus Screen ([facility]) - Pending Preliminary micro results at discharge 04/22/19 07:45 Streptococcus Screen ([facility]) - Pending Pharynx PENDING SALE TO [facility] Medical History Anxiety disorder, unspecified (Chronic 09/14/12) Chronic low back pain (Chronic 04/01/16) Depression (Chronic 04/01/16) Diabetes mellitus type 2, controlled (Chronic 09/14/12) 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
--- NOTE | 2019-04-22 13:44 | NS.NUTBLAN_ITS ---
Date of service: 04/22/19 Time of Service: 13:44 Nutritional Consult ASSESSMENT: * 73 year old female admitted with chest pain, bronchiolitis PMH: includes Dm2. Allergic to gluten and lactose. Following Diabetic gluten free lactose free with with adequate intake. Not considered at nutritional risk. will be available prn. MONITORING AND EVALUATION: po intake, weight, labs Time Spent in Nutritional Counseling and Treatment: 10 min face to face
--- NOTE | 2019-04-22 14:10 | INITIAL_ITS ---
- If Service Date Differs Date of service: 04/22/19 Time of Service: 14:13 Care Management Initial Assess REASON FOR HOSPITALIZATION:: Atypical Chest Pain PAST MEDICAL HISTORY/PAST SURGICAL HISTORY:: Medical History . Anxiety disorder, unspecified (Chronic 09/14/12). Chronic low back pain (Chronic 04/01/16). Depression (Chronic 04/01/16). Diabetes mellitus type 2, controlled (Chronic 09/14/12). 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 History of malignant neoplasm of bladder (Chronic 02/26/16). 09/2010. Hyperlipidemia (Chronic 04/01/16). , Ectopic. Surgical History . Cholecystectomy (Inactive). Excision, Bladder Tumor (Inactive) PREVIOUS FUNCTIONAL STATUS/SOCIAL/FAMILY SUPPORTS:: Reva lives in [place] with her , Nigel. 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 She is very independent. CURRENT FUNCTIONAL STATUS:: Reva was sitting up in her chair eating lunch when CM met with her. She stated that she thought it was strange that different people keep asking her all of the same questions. She appeared frustrated with this. She stated that she is just waiting for the MD to release her and her will come to pick her up. CM will continue to follow. ADVANCE DIRECTIVES:: None on file. Has patient been provided with information about the portal?: Yes Did the patient sign up for the portal?: Yes (previously signed up) CODE STATUS:: Full Code INSURANCE COVERAGE / FINANCIAL ISSUES:: [facility]/ [facility] CURRENT HOME/COMMUNITY SERVICES/EQUIPMENT:: Reva currently has no services or equipment. PRIMARY CARE PHYSICIAN:: Shilpi Castañeda POTENTIAL DISCHARGE NEEDS:: Evaluations for further needs, follow up appointments PATIENT/FAMILY EDUCATION NEEDS:: Review discharge instructions regarding activity levels and medications, discussion of self care needs including ask me three ANTICIPATED BARRIERS TO DISCHARGE:: None identified at this time. TRANSPORTATION:: Reva's will drive her home via private vehicle. PLAN:: Anticipate Reva will return home with no additional services once medically cleared. She will follow up with her PCP, as recommended. Her will drive her home via private vehicle when ready. She is agreeable to returning home.
--- NOTE | 2019-04-22 14:39 | PDOC.CMDIS ---
- If Service Date Differs Date of service: 04/22/19 Time of Service: 14:39 LACE Index Scoring Tool - Questions: Length of Stay (in days): 2 Acuity (Admit via E.D.?): Yes E.D. Visits: 1 - Answers: Total Score: 6 Risk of Readmission: Low Risk Care Management Discharge Reason for Hospitalization: Atypical Chest Pain Discharge Plan: Reva will return home with no additional services. Her will drive her home via private vehicle. She will follow up with her PCP, as recommended. She is agreeable to returning home. Patient/Family Education Needs: Review discharge instructions regarding activity levels and medications, discussion of self care needs including ask me three
== END 2019-04-22 14:29 | disposition home or self-care (01) ==
LOC: ER 23:41 → MS 04-22 00:05
PROVIDERS: Admitting Provider Family Medicine; Emergency Provider Emergency Medicine; PCP Nurse Practitioner; Visit Provider Internal Medicine
DX: R07.81 Pleurodynia (principal); J21.9 Acute bronchiolitis, unspecified; M94.0 Chondrocostal junction syndrome [Tietze]; I30.9 Acute pericarditis, unspecified; E83.42 Hypomagnesemia; E87.6 Hypokalemia; E87.1 Hypo-osmolality and hyponatremia; B34.9 Viral infection, unspecified; E11.9 Type 2 diabetes mellitus without complications; Z79.84 Long term (current) use of oral hypoglycemic drugs; Z87.891 Personal history of nicotine dependence; Z71.3 Dietary counseling and surveillance
CPT/HCPCS: 36415; 71275; 80053; 85027; 85652; 87449; 93005; 96361; 96365; 96375; 99220; 99239; 99285; J1650; 83735; 84443; 84484; 85025; 85610; 85730; 87081; 93010; 93306; 99217; G0378; J1885; J3490

== ENCOUNTER 2019-10-21 08:58 | Outpatient (CLI) | payer MEDICARE, OTHER, SELFPAY ==
[2019-10-24 08:22] LABS: SARS-CoV-2 RNA Undetected (Undetected); SARS-CoV-2 Specimen Source Nasopharynx
== END 2019-10-21 09:18 ==
PROVIDERS: PCP Nurse Practitioner; Visit Provider Student in an Organized Health Care Education/Training Program
DX: R05 Cough (principal); R06.02 Shortness of breath; R53.83 Other fatigue
CPT/HCPCS: U0003

== ENCOUNTER 2019-10-28 04:24 | Outpatient (CLI) | payer MEDICARE, OTHER, SELFPAY ==
--- NOTE | 2019-10-28 09:25 | RESPIRATORY ---
Pt came in thru outpatient and was given aero-chamber w/education on medication and technique. Pt was receptive to learning and took instructions with her. She was told to call the respiratory therapy department with any further questions
--- NOTE | 2019-10-28 09:37 | DI.RAD_ITS ---
EXAM: XR CHEST 2V PA LATERAL CLINICAL HISTORY: r/o pneumonia, COUGH, WHEEZING TO RT SIDE OF CHEST ON EXHALATION TECHNIQUE: 2D digital imaging was performed. COMPARISON: No exams were available for comparison FINDINGS: MEDIASTINUM: Normal. HEART: Normal. PULMONARY VASCULATURE: Normal. LUNGS: Clear. PLEURAL SPACE: No pleural effusion or pneumothorax. BONE:Within normal limits for the patient's age. OTHER FINDINGS:Normal. IMPRESSION: No acute pulmonary findings. DATA REPOSITORY: RADIATION DOSE DELIVERED:
== END 2019-10-28 04:44 ==
PROVIDERS: PCP Nurse Practitioner; Visit Provider Student in an Organized Health Care Education/Training Program
DX: R05 Cough (principal); R06.2 Wheezing
CPT/HCPCS: 71046

== ENCOUNTER 2019-12-19 02:06 | Outpatient (CLI) | payer MEDICARE, OTHER, SELFPAY ==
[2019-12-19 16:34] LABS: Vitamin D 25 Total 54.5 ng/ml (30-100)
== END 2019-12-19 02:26 ==
PROVIDERS: PCP Nurse Practitioner; Visit Provider Student in an Organized Health Care Education/Training Program
DX: E55.9 Vitamin D deficiency, unspecified (principal)
CPT/HCPCS: 36415; 82306

== ENCOUNTER 2020-06-19 03:30 | Outpatient (CLI) | payer MEDICARE, OTHER, SELFPAY ==
[2020-06-19 07:24] LABS: HGB 13.4 g/dL (11.2-15.7); MCH 31.9 pg (27.0-33.0); MCHC 32.7 % (32.0-36.0); MCV 97.6 fL (80-95); MPV 9.4 fL (8.0-11.0); Platelet Count 211 10^3/uL (130-400); RDW 11.9 % (11.7-14.6); RDW-SD 42.5 fL; WBC 5.69 10^3/uL (4.4-10.8)
[2020-06-19 09:10] LABS: ALT 29 U/L (14-59); AST 19 U/L (15-37); Albumin 4.1 g/dL (3.4-5.0); Alkaline Phosphatase 79 U/L (46-116); Anion Gap 8.1 mmol/L (3-11); BUN 14 mg/dL (7-18); Bilirubin, Total 0.6 mg/dL (0.2-1.0); CO2 29.9 mmol/L (21.0-32.0); CREATININE 0.9 mg/dL (0.55-1.02); Calcium 8.9 mg/dL (8.5-10.1); Calculated LDL 99 mg/dL (<100); Chloride 105 mmol/L (98-107); Cholesterol 183 mg/dL (<200); Glucose 137 mg/dL (74-106); HDL Cholesterol 67 mg/dL (40-60); Potassium 3.9 mmol/L (3.5-5.1); Sodium 143 mmol/L (136-145); Total Protein 7.6 g/dL (6.4-8.2); Triglyceride 86 mg/dL (<150)
== END 2020-06-19 03:31 | disposition home or self-care (01) ==
LOC: LBO 03:30
PROVIDERS: PCP Nurse Practitioner; Visit Provider Nurse Practitioner
DX: E11.8 Type 2 diabetes mellitus with unspecified complications (principal); E78.5 Hyperlipidemia, unspecified
CPT/HCPCS: 36415; 80053; 80061; 85027

== ENCOUNTER 2020-07-12 02:29 | Outpatient (CLI) | payer MEDICARE, OTHER, SELFPAY ==
--- NOTE | 2020-07-12 06:45 | DI.MAMMO_ITS ---
Exam(s) MAMMO SCREENING EXAM: MAMMO SCREENING CLINICAL HISTORY: screening, Z12.39. TECHNIQUE: Bilateral full field digital CC and MLO mammographic images were obtained with 3D tomosyn thesis and utilizing computer aided detection (CAD). COMPARISON: Prior mammograms dating back to 2011, the most recent being November 2017. FINDINGS: Towards the lateral aspect of the right breast there is a new round 7 millimeter diameter peripherall y calcified oil cyst located 8 cm in from the nipple. In addition, just behind the above finding is a new noncalcified nodular density measuring 7 by 5 mil limeters, approximately 10 cm in from the nipple, not evident on prior studies. No new findings in the opposite-left breast. There is no significant architectural distortion nor skin thickening-retraction. IMPRESSION: No radiographic evidence of malignancy in left breast 7 x 5 millimeter asymmetric density-possible nodule located laterally in the right breast. Spot comp ression cc 3D view and possible breast ultrasound recommended. BI-RADS Category 0 - Assessment Incomplete: Need additional imaging evaluation Breast Density - Category B - Scattered areas of fibroglandular density Breast density Category C or D implies that the patient has dense breast tissue. Dense breast tissue can make it harder to find cancer on a mammogram. Dense breast tissue is also associated with an incr eased risk of breast cancer. This information about the result of the mammogram report was provided to the patient to raise their awareness. Use this report when you speak with the patient about their risks for breast cancer, which includes their family history. At that time, you may recommend additional screening tests (Ultrasoun d or MRI) as these tests may add significant information. A negative radiographic report should not delay biopsy if a dominant or clinically suspicious mass is present. Up to ten percent of cancers are not identified on mammography. A negative report may reinforce clinical impression. Adenosis and dense breasts may obscure an underlying neoplasm. False positive reports average 6 to 10%. Patient will receive a letter notifying them of these results.
== END 2020-07-12 02:49 ==
PROVIDERS: PCP Nurse Practitioner; Visit Provider Nurse Practitioner
DX: Z12.31 Encounter for screening mammogram for malignant neoplasm of breast (principal)
CPT/HCPCS: 77063; 77067

== ENCOUNTER 2020-07-24 01:55 | Outpatient (CLI) | payer MEDICARE, OTHER, SELFPAY ==
--- NOTE | 2020-07-24 | DI.US_ITS ---
Exam(s) MG MAMMO SCREEN CALL BACK UNI US BREAST RT LIMITED EXAM: US BREAST RT LIMITED CLINICAL HISTORY: F/U MAMMO, NEW NONCALCIFIED ASYMMETRIC NODULAR DENSITY TECHNIQUE: Ultrasound performed using standard protocol. COMPARISON: US US ECHOCARDIOGRAM from 04/22/2019 MG MG MAMMO SCREEN CALL BACK UNI from 07/24/2020 FINDINGS: Right breast additional mammographic views and right breast ultrasound are interpreted in conjunction . These examinations were obtained to evaluate a small questionable area of nodularity seen posterio r to an apparent oil cyst seen in the upper outer quadrant of the right breast. And 8 millimeter presumed oil cyst is noted ultrasound a graphically and posterior to this, there is an approximately 2-3 millimeter in diameter cyst with internal echoes. Additionally a 4 millimeter c yst is also seen in this area, also with internal echoes. No suspicious solid mass identified. No v ascularity identified on Doppler evaluation in either these tiny lesions. Mammographically there is no visible nodule apart from the aforementioned oil cyst. IMPRESSION: No specific evidence of malignancy. Follow-up unilateral right breast mammogram and right breast ult rasound recommended in 6 months to assess stability of small right breast lesions. BI-RADS Cat 3 - 6 month - Probably Benign Finding: Recommend follow-up imaging in 6 months Breast Density - Category C - Heterogeneously dense DATA REPOSITORY:
== END 2020-07-24 02:15 ==
PROVIDERS: PCP Nurse Practitioner; Visit Provider Nurse Practitioner
DX: Z12.31 Encounter for screening mammogram for malignant neoplasm of breast (principal); R92.8 Other abnormal and inconclusive findings on diagnostic imaging of breast; N60.11 Diffuse cystic mastopathy of right breast
CPT/HCPCS: 76642; 77063; 77067

== ENCOUNTER 2021-01-23 00:39 | Outpatient (CLI) | payer MEDICARE, OTHER, SELFPAY ==
--- NOTE | 2021-01-23 07:16 | DI.US_ITS ---
Exam(s) MG MAMMO DIAGNOSTIC UNI US BREAST RT LIMITED EXAM: MG MAMMO DIAGNOSTIC UNI and U/S breast RT limited CLINICAL HISTORY: 6 MO F/U, R92.8. TECHNIQUE: Craniocaudal and mediolateral oblique Full Field Digital Mammography views of the right b reast with Computer Aided Diagnosis followed by Tomosynthesis and right breast ultrasound. COMPARISON: Priors available for comparison. FINDINGS: Mammography/Tomosynthesis: Masses/Architectural Distortion: No suspicious masses or areas of architectural distortion. There ar e again seen a few stable right breast nodules. Microcalcifictions: No suspicious pleomorphic-type are seen. Skin Thickening/Nipple Retraction: None. Right breast US: Sonographic evaluation was limited to the upper outer quadrant of the right breast. Echotexture: Normal appearance of the glandular tissue. Shadowing: No suspicious foci. Cyst: There is a stable 0.8 x 0.6 x 0.6 cm simple cyst at the 10 o'clock position of the right breast 4 cm from the nipple. Solid lesions: None seen. Ductal dilation: None. IMPRESSION: 1. No evidence of malignancy is noted. 2. Unless there is more urgent need, follow-up screening mammography is recommended, as per [place] [employer] guidelines. 3. The findings were discussed with the patient on the date of the examination. BI-RADS Category 2 - Benign Findings Breast Density - Category B - Scattered areas of fibroglandular density Breast density Category C or D implies that the patient has dense breast tissue. Dense breast tissue can make it harder to find cancer on a mammogram. Dense breast tissue is also associated with an incr eased risk of breast cancer. This information about the result of the mammogram report was provided to the patient to raise their awareness. Use this report when you speak with the patient about their risks for breast cancer, which includes their family history. At that time, you may recommend additional screening tests (Ultrasoun d or MRI) as these tests may add significant information. A negative radiographic report should not delay biopsy if a dominant or clinically suspicious mass is present. Up to ten percent of cancers are not identified on mammography. A negative report may reinforce clinical impression. Adenosis and dense breasts may obscure an underlying neoplasm. False positive reports average 6 to 10%. Patient will receive a letter notifying them of these results.
== END 2021-01-23 00:59 ==
PROVIDERS: PCP Nurse Practitioner; Visit Provider Nurse Practitioner
DX: R92.8 Other abnormal and inconclusive findings on diagnostic imaging of breast (principal); N60.01 Solitary cyst of right breast
CPT/HCPCS: 76642; 77061; 77065; G0279

== ENCOUNTER 2021-06-05 03:06 | Outpatient (CLI) | payer MEDICARE, OTHER, SELFPAY ==
[2021-06-05 07:18] LABS: HCT 40.2 % (36.0-46.0); HGB 13.2 g/dL (11.2-15.7); MCHC 32.8 % (32.0-36.0); MCV 97.6 fL (80-95); MPV 9.2 fL (8.0-11.0); Platelet Count 199 10^3/uL (130-400); RBC 4.12 10^6/uL (3.93-5.22); RDW 12.2 % (11.7-14.6); WBC 5.57 10^3/uL (4.4-10.8)
[2021-06-05 08:32] LABS: ALT 34 U/L (14-59); AST 22 U/L (15-37); Albumin 4.1 g/dL (3.4-5.0); Alkaline Phosphatase 66 U/L (46-116); BUN 23 mg/dL (7-18); Bilirubin, Total 0.5 mg/dL (0.2-1.0); CREATININE 0.9 mg/dL (0.55-1.02); Chloride 104 mmol/L (98-107); Glucose 136 mg/dL (74-106); Potassium 3.6 mmol/L (3.5-5.1); Sodium 140 mmol/L (136-145); Total Protein 7.3 g/dL (6.4-8.2)
[2021-06-05 08:36] LABS: Anion Gap 8.6 mmol/L (3-11); CO2 27.4 mmol/L (21.0-32.0)
[2021-06-05 09:29] LABS: Calculated LDL 101 mg/dL (<100); Cholesterol 177 mg/dL (<200); HDL Cholesterol 61 mg/dL (40-60); Triglyceride 77 mg/dL (<150)
== END 2021-06-05 03:07 | disposition home or self-care (01) ==
LOC: LBO 03:06
PROVIDERS: PCP Nurse Practitioner; Visit Provider Nurse Practitioner
DX: E11.9 Type 2 diabetes mellitus without complications (principal); E78.5 Hyperlipidemia, unspecified; M54.59 Other low back pain; G89.29 Other chronic pain
CPT/HCPCS: 36415; 80053; 80061; 85027

== ENCOUNTER 2021-07-03 01:41 | Outpatient (CLI) | payer MEDICARE, OTHER, SELFPAY ==
[2021-07-03 11:00] LABS: TSH (W/Ref FT4) 3.28 uIU/mL (0.36-3.74)
== END 2021-07-03 01:42 | disposition home or self-care (01) ==
LOC: LBO 01:41
PROVIDERS: PCP Student in an Organized Health Care Education/Training Program; Visit Provider Student in an Organized Health Care Education/Training Program
DX: R53.83 Other fatigue (principal)
CPT/HCPCS: 36415; 84443

== ENCOUNTER 2021-12-13 16:49 | Outpatient (CLI) | payer MEDICARE, OTHER, SELFPAY ==
--- NOTE | 2021-12-13 16:45 | RT.EKG_ITS ---
APPROVED REPORT Exam: Resting ECG Reason for Exam: Cough Patient Location: O HR:61 bpm ECG Measurements Heart Rate 61 AXIS NM 188 P 67 QRSd 86 QRS 54 QT 432 T 65 QTc 435 Conclusion Sinus rhythm...normal P axis, V-rate 50- 99 Baseline wander in lead(s) V2,V3 Normal Electrocardiogram
== END 2021-12-13 16:50 | disposition home or self-care (01) ==
LOC: DI.CM 16:51
PROVIDERS: PCP Student in an Organized Health Care Education/Training Program; Visit Provider Physician Assistant
DX: R07.89 Other chest pain (principal); R05.8 Other specified cough; R53.83 Other fatigue; Z86.16 Personal history of COVID-19
CPT/HCPCS: 93010

== ENCOUNTER 2021-12-13 18:13 | Emergency (ER) | payer MEDICARE, OTHER, SELFPAY ==
[2021-12-13] VITALS (44 sets, daily range): BP systolic 107–142; BP diastolic 48–82; PULSE 58–73; RESP 8–26; TEMP 36.7–37; O2SAT 98–100
--- NOTE | 2021-12-13 18:15 | RT.EKG_ITS ---
APPROVED REPORT Exam: Resting ECG Reason for Exam: CHEST PAIN Patient Location: E HR:60 bpm ECG Measurements Heart Rate 60 AXIS NM 192 P 73 QRSd 77 QRS 22 QT 415 T 66 QTc 414 Conclusion Sinus rhythm...normal P axis, V-rate 60- 99
--- NOTE | 2021-12-13 18:30 | DI.RAD_ITS ---
Exam(s) XR PORTABLE CHEST AP EXAM: XR PORTABLE CHEST AP CLINICAL HISTORY: cough. TECHNIQUE: 2D digital imaging was performed. COMPARISON: CR XR CHEST 2V PA LATERAL from 10/28/2019 FINDINGS: Single AP portable view. Chest leads in place. Heart size is upper normal. The mediastinum is not widened. Mild increased pulmonary markings are again noted. No new infiltrates nor pleural effusions. Nodula r density seen lateral to the left heart border noted. Possibly significant although difficult to as sess because of overlying rib. No pleural effusions. IMPRESSION: As above. Recommend nonportable PA and lateral views when clinically possible. DATA REPOSITORY: RADIATION DOSE DELIVERED:
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
[2021-12-13 18:46] LABS: Abs Immature Grans 0.03 10^3/uL (0.0-0.06); Absolute Basophil Count 0.03 10^3/uL (0.0-0.2); Absolute Eosinophil Count 0.36 10^3/uL (0.0-0.7); Absolute Lymphocyte Count 2.05 10^3/uL (1.2-3.4); Absolute Neutrophil Count 4.76 10^3/uL (1.2-6.7); Basophils % 0.4; Eosinophils % 4.7; HCT 36.7 % (36.0-46.0); HGB 12.7 g/dL (11.2-15.7); Immature Grans % 0.4; Lymphocytes % 26.5; MCH 31.9 pg (27.0-33.0); MCHC 34.6 % (32.0-36.0); MCV 92 fL (80-95); MPV 9.5 fL (8.0-11.0); Monocytes % 6.5; Neutrophils % 61.5; Platelet Count 211 10^3/uL (130-400); RBC 3.98 10^6/uL (3.93-5.22); RDW 11.8 % (11.7-14.6); RDW-SD 40.1 fL; WBC 7.73 10^3/uL (4.4-10.8)
[2021-12-13 19:03] LABS: ALT 37 U/L (14-59); AST 22 U/L (15-37); Albumin 4.1 g/dL (3.4-5.0); Alkaline Phosphatase 68 U/L (46-116); Anion Gap 7.9 mmol/L (3-11); BUN 27 mg/dL (7-18); Bilirubin, Total 0.3 mg/dL (0.2-1.0); CO2 28.1 mmol/L (21.0-32.0); Calcium 9.5 mg/dL (8.5-10.1); Chloride 99 mmol/L (98-107); Estimated GFR 58.02 (mL/min/1.73m2); Glucose 104 mg/dL (74-106); Lipase 182 U/L (73-393); Magnesium 1.8 mg/dL (1.8-2.4); Potassium 3.6 mmol/L (3.5-5.1); Sodium 135 mmol/L (136-145); Troponin I < 50 ng/L (<or=60)
--- NOTE | 2021-12-13 19:27 | DI.VRAD_ITS ---
PROCEDURE INFORMATION: Exam: XR Chest Exam date and time: 12/13/2021 6:37 PM Age: 76 years old Clinical indication: Cough TECHNIQUE: Imaging protocol: Radiologic exam of the chest. Views: 1 view. COMPARISON: CR XR CHEST 2V PA LATERAL 10/28/2019 9:33 AM FINDINGS: Lungs: There are diffuse interstitial infiltrates present. This may represent cardiogenic versus noncardiogenic edema. An acute inflammatory process and/or infectious process/pneumonia are not excluded. Pleural spaces: There is no evidence of pneumothorax. There are no pleural effusions present. Heart/Mediastinum: The cardiac structures are normal. The mediastinal contour is normal. Bones/joints: The thoracic spine demonstrates mild degenerative changes at multiple levels. Intraperitoneal space: Metallic density present just at the left upper quadrant incompletely image not on the previous film. Clinical correlation recommended. IMPRESSION: 1. There are diffuse interstitial infiltrates present. This may represent cardiogenic versus noncardiogenic edema. An acute inflammatory process and/or infectious process/pneumonia are not excluded. 2. Metallic density present just at the left upper quadrant incompletely image not on the previous film. Clinical correlation recommended. Dictated and Authenticated by: Devon Ron MD. Ordering:JOSEP Guan MD
== END 2021-12-13 21:05 | disposition home or self-care (01) ==
PROVIDERS: Emergency Provider Emergency Medicine; PCP Student in an Organized Health Care Education/Training Program
DX: R05.9 Cough, unspecified (principal); R07.89 Other chest pain; I10 Essential (primary) hypertension; E11.9 Type 2 diabetes mellitus without complications; R91.8 Other nonspecific abnormal finding of lung field; Z87.891 Personal history of nicotine dependence; Z86.16 Personal history of COVID-19; Z79.84 Long term (current) use of oral hypoglycemic drugs
CPT/HCPCS: 36415; 80053; 83690; 93005; 93308; 99284; 71045; 83735; 84484; 85025; 93010; 99285

== ENCOUNTER → 2021-12-17 12:55 | Outpatient (CLI) | payer MEDICARE, OTHER, SELFPAY ==
--- NOTE | 2021-12-17 11:00 | DI.RAD_ITS ---
Exam(s) XR FOOT RT COMPLETE EXAM: XR FOOT RT COMPLETE CLINICAL HISTORY: PAIN IN FOOT-M79.673, ENTHESOPATHIES-M77.8. TECHNIQUE: 2D digital imaging was performed. COMPARISON: CR XR FOOT LT COMPLETE from 12/17/2021 FINDINGS: 3 views Moderate-prominent hallux valgus also evident on this side. There is no evidence of fracture diastasis of Lisfranc joint. No hallux valgus. No inferior calcane al spur. Mild narrowing of the great toe metatarsophalangeal joint. No osseous lesions nor erosions . Soft tissue calcification measuring 2 millimeters in soft tissues seen in the great toe metatarsal and 2nd. IMPRESSION: Hallux valgus. DATA REPOSITORY: RADIATION DOSE DELIVERED:
--- NOTE | 2021-12-17 11:00 | DI.RAD_ITS ---
Exam(s) XR FOOT LT COMPLETE EXAM: XR FOOT LT COMPLETE CLINICAL HISTORY: PAIN IN FOOT-M79.673, ENTHESOPATHIES-M77.8. TECHNIQUE: 2D digital imaging was performed. COMPARISON: No exams were available for comparison FINDINGS: 3 views Three weight-bearing views of the left foot reveal no evidence of fracture or diastasis of the [place] joint. Prominent hallux valgus is noted. Mild narrowing of the great toe metatarsophalangeal dirk nt. No osseous lesions nor erosions. No pes planus. IMPRESSION: Hallux valgus. DATA REPOSITORY: RADIATION DOSE DELIVERED:
== END ==
PROVIDERS: PCP Student in an Organized Health Care Education/Training Program; Visit Provider Podiatrist Foot & Ankle Surgery
DX: M20.12 Hallux valgus (acquired), left foot; M20.11 Hallux valgus (acquired), right foot
CPT/HCPCS: 73630

== ENCOUNTER → 2022-02-18 02:25 | Outpatient (CLI) | payer MEDICARE, OTHER, SELFPAY ==
--- NOTE | 2022-02-18 08:00 | DI.CT_ITS ---
Exam(s) CT CHEST WO EXAM: CT CHEST WO CLINICAL HISTORY: evaluate infiltrate return to baseline (Hx covid,dyspnea,r06.09,u09.9,. TECHNIQUE: Multi planar reconstructions were performed. CONTRAST MATERIAL: None COMPARISON: CT CT CHEST PE CTA from 04/21/2019 CR XR CHEST 2V PA LATERAL from 10/28/2019 CR,XR XR PORTABLE CHEST AP from 12/13/2021 FINDINGS: CHEST: LUNGS: No significant nodules in either lung field. No confluent infiltrates nor pleural effusions. No significant focal findings in the trachea and mainstem bronchi. MEDIASTINUM: There is no obvious hilar nor mediastinal adenopathy. Visualized thyroid unremarkable.No obvious axillary adenopathy CARDIAC: Heart size is normal. There is no pericardial effusion.Caliber of the thoracic aorta is wit hin normal limits. VISUALIZED UPPER ABDOMEN:No adrenal masses. No splenomegaly. OSSEOUS: No significant osseous lesions.No fractures.. IMPRESSION: 1. No significant intrathoracic findings. No pulmonary nodules, infiltrates, or pleural effusions. No intrathoracic adenopathy RADIATION DOSE DELIVERED: 438.9mGy.cm Total DLP DATA REPOSITORY: All CT scans at this facility are submitted to the National Radiology Data Registry (NRDR) Dose Index Registry (DIR) with the [employer] (A[employer]). RADIATION OPTIMIZATION: All CT scans at this facility use at least one of these dose optimization te chniques: automated exposure control; mA and/or kV adjustment per patient size (includes targeted exa ms where dose is matched to clinical indication); or iterative reconstruction.
== END ==
PROVIDERS: PCP Student in an Organized Health Care Education/Training Program; Visit Provider Student in an Organized Health Care Education/Training Program
DX: R06.09 Other forms of dyspnea (principal); U07.1 COVID-19; U09.9 Post COVID-19 condition, unspecified
CPT/HCPCS: 71250

== ENCOUNTER 2022-04-16 20:01 | Emergency (ER) | payer MEDICARE, SELFPAY ==
[2022-04-16 20:15] VITALS: BP 146/70; PULSE 74; RESP 15; TEMP 36.9; O2SAT 98
--- NOTE | 2022-04-16 20:30 | DI.RAD_ITS ---
Exam(s) XR HIP LT COMPLETE AP PELVIS EXAM: XR HIP LT COMPLETE AP PELVIS CLINICAL HISTORY: Knee buckled, almost fell, pain. TECHNIQUE: 2D digital imaging was performed of the left hip. Three views were obtained. AP pelvis and lateral left hip views were obtained. COMPARISON: CR LEFT HIP COMPLETE from 04/18/2011 FINDINGS: BONES: No acute fracture is present. No bony destructive lesion is seen. Bones are osteopenic. JOINTS: No dislocation present. SOFT TISSUE: Normal. IMPRESSION: No acute fracture or dislocation. DATA REPOSITORY: RADIATION DOSE DELIVERED:
--- NOTE | 2022-04-16 20:30 | DI.RAD_ITS ---
Exam(s) XR KNEE LT 4V+ EXAM: XR KNEE LT 4V+ CLINICAL HISTORY: Knee buckled. TECHNIQUE: 2D digital imaging was performed of the left knee. Or images were obtained. Merchant,AP , lateral and PA tunnel views were obtained. COMPARISON: No exams were available for comparison FINDINGS: BONES: No acute fracture is present. No bony destructive lesion is seen. JOINTS: The knee is normally aligned. Small joint effusion is present. SOFT TISSUE: Normal. IMPRESSION: 1. No acute fracture or dislocation. 2. Small joint effusion. DATA REPOSITORY: RADIATION DOSE DELIVERED:
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
--- NOTE | 2022-04-16 21:35 | DI.VRAD_ITS ---
PROCEDURE INFORMATION: Exam: XR Left Knee Exam date and time: 04/16/2022 21:12 Age: 76 years old Clinical indication: Injury or trauma; Blunt trauma; Knee; Left; Injury details: Fall, pain TECHNIQUE: Imaging protocol: Radiologic exam of the left knee. Views: 4 or more views. COMPARISON: CR XR FOOT LT COMPLETE 12/17/2021 11:49 FINDINGS: Bones/joints: No acute fracture or subluxation. Small joint effusion. Soft tissues: Unremarkable. IMPRESSION: 1. No acute bony pathology. 2. Small joint effusion. Dictated and Authenticated by: Mirna Pendleton MD. Ordering:KYLEIGH Anderson MD
--- NOTE | 2022-04-16 21:35 | DI.VRAD_ITS ---
PROCEDURE INFORMATION: Exam: XR Left Hip Exam date and time: 04/16/2022 21:09 Age: 76 years old Clinical indication: Injury or trauma; Blunt trauma (contusions or hematomas); Left; Hip; Injury date: 04/16/22; Injury details: Fall, pain TECHNIQUE: Imaging protocol: Radiologic exam of the left hip. Views: 2 or 3 views hip with pelvis when performed. COMPARISON: No relevant prior studies available. FINDINGS: Bones/joints: The bones are demineralized. No acute fracture or subluxation. Soft tissues: Benign-appearing enthesophytes. IMPRESSION: No acute bony pathology. Dictated and Authenticated by: Mirna Pendleton MD. Ordering:KYLEIGH Anderson MD
--- NOTE | 2022-04-18 02:01 | NUR.NOTE ---
Needed correct info for ortho page
== END 2022-04-16 22:37 | disposition home or self-care (01) ==
PROVIDERS: Emergency Provider Physician Assistant; PCP Student in an Organized Health Care Education/Training Program
DX: M25.462 Effusion, left knee (principal); E11.9 Type 2 diabetes mellitus without complications; Z86.16 Personal history of COVID-19
CPT/HCPCS: 99284; 73502; 73564; 99282

== ENCOUNTER → 2022-04-24 10:26 | Outpatient (BNVA) | payer MEDICARE, SELFPAY | PROVIDERS: PCP Student in an Organized Health Care Education/Training Program; Referring Provider Student in an Organized Health Care Education/Training Program; Visit Provider Physician Assistant | DX: M76.892 Other specified enthesopathies of left lower limb, excluding foot (principal); S76.312A Strain of muscle, fascia and tendon of the posterior muscle group at thigh level, left thigh, initial encounter; X58.XXXA Exposure to other specified factors, initial encounter | CPT/HCPCS: 99213 ==

== ENCOUNTER → 2022-06-06 09:58 | Outpatient (BNVA) | payer MEDICARE, SELFPAY | PROVIDERS: PCP Student in an Organized Health Care Education/Training Program; Referring Provider Student in an Organized Health Care Education/Training Program; Visit Provider Student in an Organized Health Care Education/Training Program | DX: S76.312D Strain of muscle, fascia and tendon of the posterior muscle group at thigh level, left thigh, subsequent encounter (principal); X58.XXXD Exposure to other specified factors, subsequent encounter | CPT/HCPCS: 99213 ==

== ENCOUNTER 2022-09-09 01:33 | Outpatient (CLI) | payer MEDICARE, SELFPAY ==
--- NOTE | 2022-09-09 09:55 | DI.MRI_ITS ---
Exam(s) MR LOWER JOINT LT WO EXAM: MR LOWER JOINT LT WO CLINICAL HISTORY: ? meniscus tear,lt knee pain,s/p injury,[id number]. TECHNIQUE: Multiplanar multisequence MRI was performed. COMPARISON: CR,XR XR KNEE LT 4V+ from 04/16/2022 FINDINGS: The examination is limited due to patient motion artifact. BONES: There is no fracture or contusion pattern. JOINTS: There is mild thinning of the articular cartilage over the medial patellar facet. Mild incre ased signal seen in the adjacent subchondral bone and the articular cartilage. There is a small amou nt of fluid in the joint space. TENDONS: Extensor mechanism: Unremarkable. Medial retinaculum: Unremarkable. Lateral retinaculum: Unremarkable. Popliteus: Unremarkable. MUSCLES: Unremarkable. MENISCI: There is abnormal signal seen in the posterior horn of the medial meniscus extending into th e root. The lateral meniscus is unremarkable. SOFT TISSUES: Unremarkable. LIGAMENTS: Anterior Cruciate: Unremarkable. Posterior Cruciate: Unremarkable. Medial Collateral:There is a small amount of fluid around the medial meniscus which may represent a s prain. Lateral Collateral: Unremarkable. OTHER: IMPRESSION: 1. Findings suspicious for tear involving the posterior horn of the medial meniscus extending into th e root. 2. Chondromalacia involving the medial patellar facet. 3. Findings suggestive of a MCL sprain. DATA REPOSITORY:
== END 2022-09-09 01:53 ==
LOC: DI 01:35
PROVIDERS: PCP Student in an Organized Health Care Education/Training Program; Visit Provider Student in an Organized Health Care Education/Training Program
DX: M22.42 Chondromalacia patellae, left knee; T14.90XA Injury, unspecified, initial encounter
CPT/HCPCS: 73721

== ENCOUNTER → 2022-09-15 14:26 | Outpatient (BNVA) | payer MEDICARE, SELFPAY | PROVIDERS: PCP Student in an Organized Health Care Education/Training Program; Referring Provider Student in an Organized Health Care Education/Training Program; Visit Provider Student in an Organized Health Care Education/Training Program | DX: S83.242A Other tear of medial meniscus, current injury, left knee, initial encounter (principal); W19.XXXA Unspecified fall, initial encounter | CPT/HCPCS: 99214 ==

== ENCOUNTER 2022-10-08 09:41 | Day surgery (SDC) | payer MEDICARE, SELFPAY ==
[2022-10-08] VITALS (9 sets, daily range): BP systolic 105–135; BP diastolic 51–110; PULSE 52–65; RESP 12–19; TEMP 36.4–36.6; O2SAT 97–100; BMI 24.3
--- NOTE | 2022-10-08 08:12 | W.PM.DSUDISC ---
Date of service: 10/08/22 Time of Service: 08:15 Discharge Plan Disposition Condition: Good Discharge Details Reason For Visit: Left knee medial meniscus tear Attending Provider: Vern Umana Primary Care Provider: Gabrielle Glasgow [place] Meds and New Rx's Prescriptions: New hydrocodone-acetaminophen 5-325 mg tablet 1 tab PO Q6H PRN (Reason: severe pain) Qty: 6 0RF Rx Instructions: Take one tablet up to every 6 hours as needed for severe postoperative pain acetaminophen 500 mg tablet 500 mg PO Q6H PRN (Reason: pain) Qty: 60 2RF ibuprofen 600 mg tablet 600 mg PO TID PRN (Reason: pain) Qty: 60 0RF Continued lysine 500 mg tablet 2,000 mg PO DAILY PRN cholecalciferol (vitamin D3) 50 mcg (2,000 unit) capsule 50 mcg PO DAILY selenium 200 mcg capsule 200 mcg PO DAILY Patient Comments: dose unknown per pt metformin 500 mg tablet extended release 24hr 500 mg PO BID Qty: 180 3RF vitamin B complex 1 EACH capsule 1 ea PO DAILY glucosamine sulfate 2KCl 1,000 MG tablet 1,000 mg PO BID Patient Comments: 4--18 PER PT. 2000 MG BID. Rx Instructions: with hyaluronic acid chromium amino acid chelate 400 MCG tablet 200 mcg PO BID Rx Instructions: 1/2 tab bid Lulú-C with Bioflavonoids 1 EACH tablet 1 ea PO DAILY magnesium citrate 100 MG tablet 200 mg PO DAILY oil of oregano 150 mg PO PRN PRN cbd 1 tab PO DAILY PRN PRN cod liver oil Capsule 1 cap PO DAILY Patient Comments: 05/26/17 PER PT. 1000 MG 2 QD. VALERIAN 400 MG capsule 400 mg PO DAILY Patient Comments: 500 mg per pt 11/26/20 Estring 2 mg (7.5 mcg /24 hour) ring 1 vag ring [id number] Qty: 1 6RF Rx Instructions: 1 ring PV every 10 weeks acyclovir 400 mg tablet 800 mg PO TID 20 Days Qty: 120 1RF Rx Instructions: Increased # for extended use due to incomplete healing Discontinued acetaminophen 325 MG tablet 325 mg PO PRN Rx Instructions: 1-2 tabs as needed Discharge Instructions Stand Alone Forms: [facility] Referrals: Venr Umana MD [ [facility] STAFF PHYSICIAN] - Equipment/Supplies: Partial Weight Bearing Crutches Activity:: Elevate Remove Dressings/Wound Care:: 48 hours Shower/Bathe:: 48 hours Diet:: As Tolerated
[2022-10-08] MEDS: Lactated Ringers 1,000 ML 80 ML IV (10:48)
[2022-10-08] MEDS: Acetaminophen 500 MG TAB 1000 MG PO (11:03)
[2022-10-08] MEDS: Celecoxib 200 MG CAP 400 MG PO (11:04)
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
[2022-10-08] MEDS: ceFAZolin 2 GM/50 ML BAG IVPB (12:45)
[2022-10-08] MEDS: Bupivacaine 0.5% Pres-Free 30 ML VIAL (13:12)
[2022-10-08] MEDS: EPINEPHrine 30 MG/30 ML VIAL (13:13)
--- NOTE | 2022-10-08 14:32 | W.ANESPOSTOP ---
Postoperative Evaluation Date, Time and Location Date Performed: 10/08/22 Time Performed: 14:32 Patient Location: Day Surgery Unit Vital Signs Most Recent Imported Vital Signs: Most Recent Vital Signs Temp Pulse Resp BP Pulse Ox 36.5 C 55 L 16 127/95 H 100 10/08/22 14:08 10/08/22 14:08 10/08/22 14:08 10/08/22 14:08 10/08/22 14:08 Pain Score Most Recent Pain Score: Most Recent Pain Score Pain Level 0 10/08/22 14:08 Assessment Mental Status: Awake (Alert & Oriented to Patient Baseline) Airway and Respiratory Function: Patent airway with normal (patient baseline) respiratory exam Cardiovascular Function: Hemodynamically Stable Hydration Status: Adequately Hydrated Nausea & Vomiting: No Nausea or Vomiting Pain: Pt. Denies Any Pain Peripheral Nerve Block: Patient did not receive a nerve block
[2022-10-08] MEDS: HYDROcodone 5/Acetaminophen 325 TAB PO (15:07)
--- NOTE | 2022-10-08 17:49 | ROE_ITS ---
Date of service: 10/08/22 Time of Service: 13:30 Operative Note Operative Note DATE OF PROCEDURE: 10/08/22 PRE-OP DIAGNOSIS: Left Knee Medial Meniscus Tear POST-OP DIAGNOSIS: same PROCEDURE: Left Knee Arthroscopic Partial Medial Menisectomy SURGEON: Vern Umana ANESTHESIA TYPE: General LMA/ETT Refer to Anesthesia Record ESTIMATED BLOOD LOSS: 0 PATHOLOGY: none sent COMPLICATIONS: None Patient was transported to: PACU Patient's condition: stable Indications: I have seen Reva in clinic for symptoms of a meniscus tear. This was confirme d based on MRI and exam findings. Nonoperative measures were exhausted but disability and pain persisted. I discussed knee arthroscopy with meniscal intervention with the patient. I reviewed the risks of the procedure to include, but not limited to, bleeding, infection, pain, stiffness, damage to nerves or vessels, recurrence, blood clot. Despite these risks, the patient elected to proceed. Findings: A diagnostic arthroscopy was performed with the following findings: Suprapatellar Pouch: Moderate inflammatory changes, No loose bodies Medial Compartment: Complex medial meniscal tear adjacent to the posterior root with a primary radial component and few intact peripheral fibers, grade II chondromalacia about the medial femur, No loose bodies Notch: ACL and PCL were intact Lateral Compartment: No meniscal tear, Intact meniscal root, No significant chondromalacia or signs of arthritis, No loose bodies Patellofemoral Compartment: Grade I chondromalacia about the patella, No apparent patellar maltracking Procedure Description: Reva was greeted in the preoperative holding area where the correct side was identified and marked. The consent was reviewed with the patient and signed. The history and physical was updated. All questions were answered. She was taken back to the operating room. The patient was placed into the supine position on the operating room table. A nonsterile tourniquet was placed high onto the leg but not used. All bony prominences were well padded. Pro phylactic antibiotics in the form of Cefazolin were administered. The left leg was then prepped with Chloraprep and draped in a standard fashion with stockinette and extremity drape. A timeout to confirm correct identity, side and site, procedure, allergies, anesthesia, and medical concerns was performed. The leg was placed into a pneumatic leg valiente, [id number]. A standard lateral portal was made at the lateral border of the patella tendon in line with the inferior pole of the patella, soft spot. The skin and deep tissue was incised sharply and the blunt trochar was inserted atraumatically. A diagnostic arthroscopy was performed and the findings are listed above. The suprapatellar pouch had moderate amatory changes. The patellofemoral articulation showed mild grade I chondromalacia as well as good tracking. The lateral gutter had no loose bodies and the medial gutter had no loose bodies. The knee was brought into some valgus stress in extension to open the medial compartment. A medial portal was made, localized by a spinal needle. The portal was created with an #11 blade through skin and capsule under direct visualization avoiding any meniscal injury. A probe was then inserted into the medial compartment. The medial compartment was fully inspected. The chondral surface of the tibia showed no significant chondromalacia and the surface of the femur showed grade II chondromalacia. The medial meniscus had a complex tear adjacent to the root which was primary radial nature. This extended into the far periphery of the meniscus with a few peripheral fibers still intact. There is a separate complex tear adjacent to this which extend into the posterior horn. After evaluation, the meniscus was debrided down to a stable base using a series of biters and arthroscopic crissy. It was probed afterwards to confirm that the tear had been removed and the meniscus was stable. The root region was manipulated with the probe and was not unstable. This was also visualized from a drive-through notch position. The notch was then inspected which showed an intact ACL and an intact PCL. The leg was then brought into a figure of 4 position. The lateral compartment was fully inspected with the arthroscope and a probe. The chondral surface of the lateral femur showed no significant chondromalacia. The chondral surface of the lateral tibia showed no significant chondromalacia. The lateral meniscus had no meniscal tear. The arthroscope was brought back into the suprapatellar pouch and the leg was in full extension. The knee was thoroughly irrigated with the arthroscopic fluid on high flow and pressure. Inflow was stopped and excess fluid was removed. The wounds were closed with 4-0 Nylon. They were dressed with Xeroform, 4x4 gauze, ABD pad, Kerlix and an AISLINN wrap. A cryo-cuff was applied. The patient tolerated the procedure well and was returned to the Same Day Surgery area in a stable condition suffering no known complication.
== END 2022-10-08 15:45 | disposition home or self-care (01) ==
PROVIDERS: PCP Student in an Organized Health Care Education/Training Program; Visit Provider Student in an Organized Health Care Education/Training Program
PROC: (CPT 29870; principal; 2022-10-08 13:45)
DX: M23.232 Derangement of other medial meniscus due to old tear or injury, left knee (principal)
CPT/HCPCS: 29881; J0690; J1100; J2001; J2250; J2405; J2704

== ENCOUNTER → 2022-10-20 09:46 | Outpatient (BNVA) | payer MEDICARE, SELFPAY | PROVIDERS: PCP Student in an Organized Health Care Education/Training Program; Referring Provider Student in an Organized Health Care Education/Training Program; Visit Provider Student in an Organized Health Care Education/Training Program | DX: S83.242D Other tear of medial meniscus, current injury, left knee, subsequent encounter (principal); X58.XXXD Exposure to other specified factors, subsequent encounter ==

== ENCOUNTER 2022-12-03 01:06 | Outpatient (CLI) | payer MEDICARE, SELFPAY ==
--- NOTE | 2022-12-03 08:45 | DI.RAD_ITS ---
Exam(s) XR FOOT LT COMPLETE XR FOOT RT COMPLETE EXAM: XR FOOT LT COMPLETE CLINICAL HISTORY: COMPARE TO RT ; Eval for bony path M79.673 PAIN M21.612 BUNION LEFT FOOT. TECHNIQUE: 2D digital imaging was performed. Three views of both feet. COMPARISON: CR XR FOOT LT COMPLETE from 12/17/2021 CR XR FOOT RT COMPLETE from 12/17/2021 FINDINGS: BONES: No acute fracture is present. No bony destructive lesion is seen. Small enthesophyte at Achi lles insertion bilaterally. JOINTS: No dislocation present. Moderate bilateral hallux valgus. Mild degenerative changes at the 1 st MTP joints. Mild soft tissue swelling medial to 1st metatarsal heads. SOFT TISSUE: Normal. IMPRESSION: Stable appearance of bilateral hallux valgus and mild degenerative changes. DATA REPOSITORY: RADIATION DOSE DELIVERED:
[2022-12-03 15:02] LABS: Abs Immature Grans 0.02 10^3/uL (0.0-0.06); Absolute Basophil Count 0.03 10^3/uL (0.0-0.2); Absolute Eosinophil Count 0.11 10^3/uL (0.0-0.7); Absolute Lymphocyte Count 1.84 10^3/uL (1.2-3.4); Absolute Monocyte Count 0.54 10^3/uL (0.1-0.8); Absolute Neutrophil Count 4.35 10^3/uL (1.2-6.7); Basophils % 0.4; Eosinophils % 1.6; HCT 39.3 % (36.0-46.0); HGB 13.3 g/dL (11.2-15.7); Immature Grans % 0.3; Lymphocytes % 26.7; MCH 31.9 pg (27.0-33.0); MCHC 33.8 % (32.0-36.0); MCV 94 fL (80-95); MPV 9.1 fL (8.0-11.0); Monocytes % 7.8; Neutrophils % 63.2; Platelet Count 249 10^3/uL (130-400); RBC 4.17 10^6/uL (3.93-5.22); RDW 12.3 % (11.7-14.6); RDW-SD 42.5 fL; WBC 6.89 10^3/uL (4.4-10.8)
[2022-12-03 16:12] LABS: Anion Gap 8.1 mmol/L (3-11); BUN 18 mg/dL (7-18); CO2 28.9 mmol/L (21.0-32.0); Calcium 9.6 mg/dL (8.5-10.1); Calculated LDL 106 mg/dL (<100); Chloride 100 mmol/L (98-107); Cholesterol 189 mg/dL (<200); Estimated GFR 57.66 (mL/min/1.73m2); Glucose 122 mg/dL (74-106); HDL Cholesterol 69 mg/dL (40-60); Potassium 3.7 mmol/L (3.5-5.1); Sodium 137 mmol/L (136-145); TSH (W/Ref FT4) 2.51 uIU/mL (0.36-3.74); Triglyceride 73 mg/dL (<150); Vitamin B12 1388 pg/mL (193-986)
[2022-12-03 17:20] LABS: Folate > 20.0 ng/mL (8.6-20.0)
== END 2022-12-03 01:07 | disposition home or self-care (01) ==
PROVIDERS: PCP Student in an Organized Health Care Education/Training Program; Referring Provider Student in an Organized Health Care Education/Training Program; Visit Provider Student in an Organized Health Care Education/Training Program
DX: M77.51 Other enthesopathy of right foot and ankle; E11.8 Type 2 diabetes mellitus with unspecified complications; E87.8 Other disorders of electrolyte and fluid balance, not elsewhere classified; K76.0 Fatty (change of) liver, not elsewhere classified; M77.9 Enthesopathy, unspecified; Z13.220 Encounter for screening for lipoid disorders; Z86.39 Personal history of other endocrine, nutritional and metabolic disease; Z91.09 Other allergy status, other than to drugs and biological substances; E11.9 Type 2 diabetes mellitus without complications; G62.9 Polyneuropathy, unspecified; I10 Essential (primary) hypertension; R53.83 Other fatigue
CPT/HCPCS: 36415; 80048; 80061; 82306; 73630; 82607; 82746; 84443; 85025

== ENCOUNTER → 2022-12-09 01:51 | Outpatient (CLI) | payer MEDICARE, SELFPAY ==
--- NOTE | 2022-12-09 08:00 | DI.RAD_ITS ---
Exam(s) XR HIP LT COMPLETE AP PELVIS EXAM: XR HIP LT COMPLETE AP PELVIS CLINICAL HISTORY: evaluate left hip region,LT HIP PAIN, M25.559. TECHNIQUE: 2D digital imaging was performed of the left hip. Two views were obtained. AP pelvis an d lateral left hip views were obtained. COMPARISON: CR,XR XR HIP LT COMPLETE AP PELVIS from 04/16/2022 FINDINGS: BONES: No acute fracture is present. No bony destructive lesion is seen. JOINTS: No dislocation present. There are mild degenerative changes seen in the hips. The sacroiliac joints and symphysis pubis are unremarkable. SOFT TISSUE: There is a pessary in place. IMPRESSION: Mild degenerative changes are present. DATA REPOSITORY: RADIATION DOSE DELIVERED:
== END ==
PROVIDERS: PCP Student in an Organized Health Care Education/Training Program; Visit Provider Student in an Organized Health Care Education/Training Program
DX: M25.552 Pain in left hip (principal)
CPT/HCPCS: 73502

== ENCOUNTER 2023-01-19 03:29 | Outpatient (CLI) | payer MEDICARE, SELFPAY ==
[2023-01-19 11:20] LABS: Anion Gap 9.8 mmol/L (3-11); BUN 17 mg/dL (7-18); CO2 30.2 mmol/L (21.0-32.0); CREATININE 0.9 mg/dL (0.55-1.02); Calcium 9.4 mg/dL (8.5-10.1); Chloride 101 mmol/L (98-107); Estimated GFR 65.44 (mL/min/1.73m2); Glucose 140 mg/dL (74-106); Potassium 3.5 mmol/L (3.5-5.1); Sodium 141 mmol/L (136-145)
[2023-01-19 11:47] LABS: Vitamin D 25 Total 49.1 ng/mL (30-100)
== END 2023-01-19 03:30 | disposition home or self-care (01) ==
LOC: LBO 03:29
PROVIDERS: PCP Student in an Organized Health Care Education/Training Program; Visit Provider Student in an Organized Health Care Education/Training Program
DX: E11.8 Type 2 diabetes mellitus with unspecified complications (principal); K90.9 Intestinal malabsorption, unspecified; Z84.89 Family history of other specified conditions; Z86.39 Personal history of other endocrine, nutritional and metabolic disease; I10 Essential (primary) hypertension; Z91.89 Other specified personal risk factors, not elsewhere classified
CPT/HCPCS: 36415; 80048; 82306; 83735

== ENCOUNTER → 2023-04-01 02:09 | Outpatient (CLI) | payer MEDICARE, SELFPAY ==
--- NOTE | 2023-04-01 09:25 | DI.CT_ITS ---
Exam(s) CT CHEST WO EXAM: CT CHEST WO CLINICAL HISTORY: screening for nodules, lung cancer,FORMER SMOKER TECHNIQUE: Imaging Protocol: Axial computed tomography images with coronal and sagittal reformatted images were created and reviewed. Low dose screening protocol. COMPARISON: CT CT CHEST WO from 02/18/2022 FINDINGS: Tracheobronchial tree: No bronchiectasis or mucus plugging.. Mediastinum and Tonia: No dominant adenopathy or fluid collection. Pulmonary parenchyma: No consolidation or dominant measurable mass. Minimal emphysematous changes. M ild interstitial changes. Scarring medial lingula. Lung Nodules: No suspicious nodules. Pleura: No effusion. No pneumothorax. Heart: The heart is not dilated. Moderate coronary artery calcifications are seen. Aorta: Thoracic aorta non-dilated. Upper abdomen: Unremarkable. Bones: Unremarkable for age. Soft Tissues: Unremarkable. IMPRESSION: No suspicious pulmonary nodules. Lung RADS Cat 1 - Negative: No nodules and definitely benign nodules Lung-RADS 1.0 CATEGORIES: Category 0 - Prior chest CT exam(s) being located for comparison. Category 1 - Annual screening in 12 months. No nodules or definitely benign nodules. Category 2 - Annual screening in 12 months. Benign appearance. Nodules with low likelihood of becomin g active cancer. Category 3 - 6-month follow-up. Probably benign. Short-term follow-up suggested. Nodules with low lik elihood of becoming active cancer. Category 4A - 3-month follow-up and CT/PET if >8 mm in size. Suspicious finding. Findings which requi re additional testing. Category 4B - Findings which require additional testing and tissue sampling. Category 4X - Category 3 or 4 nodules with additional features or imaging findings that increases the suspicion of malignancy. Modifier S- Potentially clinically significant findings (non lung cancer) RADIATION DOSE DELIVERED: 70.05mGy.cm Total DLP 70.05mGy.cm Total DLP DATA REPOSITORY: All CT scans at this facility are submitted to the National Radiology Data Registry (NRDR) Dose Index Registry (DIR) with the [employer] (ACR). RADIATION OPTIMIZATION: All CT scans at this facility use at least one of these dose optimization te chniques: automated exposure control; mA and/or kV adjustment per patient size (includes targeted exa ms where dose is matched to clinical indication); or iterative reconstruction.
== END ==
PROVIDERS: PCP Student in an Organized Health Care Education/Training Program; Visit Provider Student in an Organized Health Care Education/Training Program
DX: Z87.891 Personal history of nicotine dependence (principal); Z12.2 Encounter for screening for malignant neoplasm of respiratory organs
CPT/HCPCS: 71250

== ENCOUNTER 2023-04-16 10:41 | Outpatient (CLI) | payer MEDICARE, SELFPAY ==
--- NOTE | 2023-04-16 10:30 | RT.EKG_ITS ---
APPROVED REPORT Exam: Resting ECG Reason for Exam: Chest discomfort Patient Location: O HR:58 bpm ECG Measurements Heart Rate 58 AXIS MO 195 P 63 QRSd 117 QRS 53 QT 455 T 84 QTc 447 Conclusion Sinus rhythm...normal P axis, V-rate 50- 99 Possible Anteroseptal infarct, age indeterminate...Q >35mS, T neg, V1-V2
== END 2023-04-16 10:42 | disposition home or self-care (01) ==
LOC: DI.CM 10:41
PROVIDERS: PCP Student in an Organized Health Care Education/Training Program; Visit Provider Nurse Practitioner Family
DX: R07.89 Other chest pain (principal)
CPT/HCPCS: 93010

== ENCOUNTER 2023-04-16 11:06 | Outpatient (CLI) | payer MEDICARE, SELFPAY ==
[2023-04-16 12:22] LABS: Abs Immature Grans 0.01 10^3/uL (0.0-0.06); Absolute Basophil Count 0.03 10^3/uL (0.0-0.2); Absolute Lymphocyte Count 1.36 10^3/uL (1.2-3.4); Absolute Monocyte Count 0.59 10^3/uL (0.1-0.8); Absolute Neutrophil Count 3.17 10^3/uL (1.2-6.7); Basophils % 0.6; Eosinophils % 1.9; HCT 40.1 % (36.0-46.0); HGB 13.3 g/dL (11.2-15.7); Immature Grans % 0.2; Lymphocytes % 25.9; MCH 31.7 pg (27.0-33.0); MCHC 33.2 % (32.0-36.0); MCV 96 fL (80-95); MPV 9.8 fL (8.0-11.0); Monocytes % 11.2; Neutrophils % 60.2; Platelet Count 208 10^3/uL (130-400); RDW 12.3 % (11.7-14.6); RDW-SD 42.9 fL; WBC 5.26 10^3/uL (4.4-10.8)
[2023-04-16 12:29] LABS: BUN 15 mg/dL (7-18); CREATININE 0.8 mg/dL (0.55-1.02); Calcium 9.6 mg/dL (8.5-10.1); Chloride 102 mmol/L (98-107); Estimated GFR 75.37 (mL/min/1.73m2); Glucose 111 mg/dL (74-106); Magnesium 1.9 mg/dL (1.8-2.4); Potassium 3.4 mmol/L (3.5-5.1); Sodium 140 mmol/L (136-145)
== END 2023-04-16 11:07 | disposition home or self-care (01) ==
LOC: LOS 11:07
PROVIDERS: PCP Student in an Organized Health Care Education/Training Program; Referring Provider Nurse Practitioner Family; Visit Provider Nurse Practitioner Family
DX: R19.7 Diarrhea, unspecified (principal)
CPT/HCPCS: 36415; 80048; 83735; 85025

== ENCOUNTER 2023-04-17 20:25 | Outpatient (REF) | payer MEDICARE, SELFPAY ==
[2023-04-18 10:49] LABS: Campylobacter PCR Positive (Negative); Salmonella PCR Negative (Negative); Shiga Toxin PCR Negative (Negative); Shigella/Enteroinvasive Ecoli Negative (Negative)
== END 2023-04-17 20:26 | disposition home or self-care (01) ==
LOC: LBN 20:25
PROVIDERS: PCP Student in an Organized Health Care Education/Training Program; Visit Provider Nurse Practitioner Family
DX: R19.7 Diarrhea, unspecified (principal)
CPT/HCPCS: 87505; 87177

== ENCOUNTER 2023-04-30 03:30 | Outpatient (CLI) | payer MEDICARE, SELFPAY ==
[2023-04-30 12:01] LABS: ALT 35 U/L (14-59); AST 24 U/L (15-37); Alkaline Phosphatase 80 U/L (46-116); Anion Gap 8.8 mmol/L (3-11); BUN 17 mg/dL (7-18); Bilirubin, Direct 0.1 mg/dL (0.0-0.2); Bilirubin, Total 0.4 mg/dL (0.2-1.0); CO2 29.2 mmol/L (21.0-32.0); CREATININE 0.9 mg/dL (0.55-1.02); Calcium 9.7 mg/dL (8.5-10.1); Chloride 101 mmol/L (98-107); Estimated GFR 65.44 (mL/min/1.73m2); Glucose 125 mg/dL (74-106); Magnesium 1.9 mg/dL (1.8-2.4); Potassium 3.6 mmol/L (3.5-5.1); Sodium 139 mmol/L (136-145); TSH (W/Ref FT4) 4.15 uIU/mL (0.36-3.74); Total Protein 7.9 g/dL (6.4-8.2)
[2023-04-30 12:13] LABS: Epithelial Cells Few HPF (Negative); RBC Negative HPF (0-2)
[2023-04-30 12:14] LABS: Bacteria Rare HPF (Negative); C & S Indicated? No; Casts Negative LPF (Negative); Crystals Negative HPF (Negative); Mucus Negative (Negative)
[2023-04-30 12:17] LABS: FREE T4 0.85 ng/dL (0.76-1.46)
== END 2023-04-30 03:31 | disposition home or self-care (01) ==
LOC: LOS 03:31
PROVIDERS: PCP Student in an Organized Health Care Education/Training Program; Visit Provider Student in an Organized Health Care Education/Training Program
DX: Z85.51 Personal history of malignant neoplasm of bladder (principal); E87.8 Other disorders of electrolyte and fluid balance, not elsewhere classified; E07.9 Disorder of thyroid, unspecified; G62.9 Polyneuropathy, unspecified; E11.9 Type 2 diabetes mellitus without complications; K76.0 Fatty (change of) liver, not elsewhere classified; I10 Essential (primary) hypertension
CPT/HCPCS: 36415; 80048; 80061; 80076; 81015; 83735; 84439; 84443

== ENCOUNTER → 2023-07-22 17:43 | Outpatient (CLI) | payer MEDICARE, SELFPAY ==
--- NOTE | 2023-07-22 17:45 | DI.RAD_ITS ---
Exam(s) XR THUMB LT EXAM: XR THUMB LT EXAM DATE/TIME: CLINICAL HISTORY: evaluate pathology. TECHNIQUE: 2D digital imaging was performed of the left finger. Three views were obtained. PA/AP, oblique, and lateral views were obtained. COMPARISON: None. FINDINGS: BONES: No acute fracture is present. No bony destructive lesion is seen. JOINTS: No dislocation is present. Mild degenerative changes are seen at the interphalangeal joints of the fingers characterized by joint space narrowing and osteophytes. SOFT TISSUE: Normal. IMPRESSION: No evidence of acute fracture or dislocation. DATA REPOSITORY: RADIATION DOSE DELIVERED:
--- NOTE | 2023-07-22 18:20 | DI.VRAD_ITS ---
PROCEDURE INFORMATION: Exam: XR Left Finger(s) Exam date and time: 07/22/2023 17:53 Age: 78 years old Clinical indication: Other: Eval pathology TECHNIQUE: Imaging protocol: Radiologic exam of the left fingers. Views: Minimum 2 views. COMPARISON: No relevant prior studies available. FINDINGS: Bones/joints: [id number] degenerative changes. No acute fracture or subluxation. Soft tissues: Benign calcifications in the soft tissues. IMPRESSION: No acute bony pathology. Dictated and Authenticated by: Mirna Pendleton MD. Ordering:NAMAN Pulliam MD
== END ==
PROVIDERS: PCP Student in an Organized Health Care Education/Training Program; Visit Provider Nurse Practitioner Family
DX: M79.645 Pain in left finger(s) (principal)
CPT/HCPCS: 73140

== ENCOUNTER 2023-08-31 03:31 | Outpatient (CLI) | payer MEDICARE, SELFPAY ==
[2023-08-31 13:35] LABS: FREE T4 0.84 ng/dL (0.76-1.46)
== END 2023-08-31 03:32 | disposition home or self-care (01) ==
LOC: LOS 03:31
PROVIDERS: PCP Student in an Organized Health Care Education/Training Program; Visit Provider Student in an Organized Health Care Education/Training Program
DX: E03.9 Hypothyroidism, unspecified
CPT/HCPCS: 36415; 80061; 84439; 84443

== ENCOUNTER → 2023-09-24 14:23 | Outpatient (BNVA) | payer MEDICARE, SELFPAY | PROVIDERS: PCP Student in an Organized Health Care Education/Training Program; Referring Provider Student in an Organized Health Care Education/Training Program; Visit Provider Student in an Organized Health Care Education/Training Program | DX: S63.642A Sprain of metacarpophalangeal joint of left thumb, initial encounter (principal); X58.XXXA Exposure to other specified factors, initial encounter | CPT/HCPCS: 99213 ==

== ENCOUNTER 2024-01-15 01:49 | Outpatient (CLI) | payer MEDICARE, SELFPAY ==
--- NOTE | 2024-01-15 06:15 | DI.US_ITS ---
Exam(s) US ABDOMEN LIMITED EXAM: US ABDOMEN LIMITED CLINICAL HISTORY: evaluate for fatty liver,liver enzyme elevation,k76.0,r74.8 TECHNIQUE: Ultrasound abdomen performed using standard protocol. COMPARISON: US POCUS EXAM from 12/13/2021 FINDINGS: There is no ascites evident. LIVER: Liver is moderately hyperechoic indicating element fatty parenchymal change/the a ptosis. The re no discrete focal hepatic lesions evident. GALLBLADDER/BILIARY: The gallbladder surgically absent. The common hepatic duct isnot dilated, measuring 4-5mm at the level of pushpa hepatis. PANCREAS: There is no evidence of pancreatic mass nor dilatation of the pancreatic duct. RIGHT KIDNEY:No evidence of solid mass, calculus, nor hydronephrosis. No cortical cysts evident. IMPRESSION: 1. Gallbladder surgically absent. The biliary tree is not dilated. 2. Hepatic steatosis. Liver size is upper normal. No liver lesions evident. 3. No other right upper quadrant ultrasound findings and there is no ascites evident DATA REPOSITORY:
== END 2024-01-15 02:09 ==
LOC: DI 01:49
PROVIDERS: PCP Student in an Organized Health Care Education/Training Program; Visit Provider Student in an Organized Health Care Education/Training Program
DX: K76.0 Fatty (change of) liver, not elsewhere classified (principal); R74.8 Abnormal levels of other serum enzymes
CPT/HCPCS: 76705

== ENCOUNTER 2024-02-22 17:17 | Outpatient (REF) | payer MEDICARE, SELFPAY ==
--- OUTSIDE RECORDS SUMMARY | 2024-02-22 17:22 | XMS_ITS | Encounter Summary ---
Author Organization [facility] Address [address] [place] [address] Care Team Providers Care Belt Glass Sander Name Role Phone Rylee Marlow MD Primary Care Provider [phone] Encounter Details Date Type Department Care Team (Late st Contact Info) Description 04/17/2023 Lab Requisition [facility] Pathology & Laboratory Medicine - [address] [id number] Outr Resulting Lab, Provider Social History Tobacco Use Types Packs/Day Years Used Date Smoking Tobacco: Never Assessed Comments Unknown Sex and Gender Information Value Date Recorded Sex Assigned at Not on file Legal Sex Female 18:41 EST Gender Identity Not on file Sexual Orientation Not on file documented as of this encounter Plan of Treatment Not on file documented as of this encounter Procedures Procedure Name Priority Date/Time Associated Diagnosis Comments FECAL BACTERIAL PATHOGENS BY PCR Routine 04/16/2023 22:00 EST OVA/PARASITE EXAM Routine 04/16/2023 22: 00 EST documented in this encounter Results * (ABNORMAL) FECAL BACTERIAL PATHOGENS BY PCR (04/16/2023 22:00 EST) Salmonella PCR Negative Negative 04/18/2023 10:44 EST [facility] Shigella/Enteroin vasive E. coli Negative Negative 04/18/2023 10:44 EST [facility] HN LAB CAMPYLOBACTER PCR Positive(A) Negative 04/18/2023 10:44 EST [facility] Shiga Toxin PCR Negative Negative 10:44 EST [facility] Feces SPECIMEN FROM RECTUM / Unknown 04/16/2023 22:00 EST 04/17/2023 21:18 EST Provider Outr Resulting Lab MICROBIOLOGY - GENER AL ORDERABLES Final Result Performing Organization Address City/[facility] Co de Phone Number [facility] [address] [place] [address] * OVA/PARASITE EXAM (04/16/2023 22:00 EST) Parasite No ova and parasites seen. 04/20/2023 15:05 EST [facility] Feces SPECIMEN FROM RECTUM / Unknown 04/16/2023 22:00 EST 04/17/2023 21:18 EST Narrative [facility] - 04/20/2023 15:05 EST (If Cryptosporidium, Cyclospora, or Microsporidium are suspected, specific tests must be requested.) Single negative specimen does not rule out the possibility of a parasitic infection. Provider Outr Resulting Lab MICROBIOLOGY - GENER AL ORDERABLES Final Result Performing Organization Address [facility] Co de Phone Number [facility] [address] [place] [address] documented in this encounter Visit Diagnoses Not on filedocumented in this encounter Care Teams Belt Glass Sander Relationship Specialty Start Date End Date Rylee Marlow MD [address] [place] [address] PCP - General 11/09/12 documented as of this encounter
--- OUTSIDE RECORDS SUMMARY | 2024-02-22 17:22 | XMS_ITS | Encounter Summary ---
[facility] [place] [address] Care Team Providers Care Manuscript Editor Name Role Phone Shilpi Castañeda APRN Primary Care Provider [phone] Encounter Details Date Type Department Care Team (Latest Contact Info) Description 12/03/2023 Travel Social History Tobacco Use Types Packs/Day Years Used Date Smoking Tobacco: Former Cigarettes Q uit: 2012 Smokeless Tobacco: Never Alcohol Use Standard Drinks/Week Comments Yes 0 (1 standard drink = 0.6 oz pur e alcohol) Sex and Gender Information Value Date Recorded Sex Assigned at Not on file Gender Identity Not on file Sexual Orientation Not on file documented as of this encounter Plan of Treatment Not on file documented as of this encounter Visit Diagnoses Not on filedocumented in this encounter Care Teams Manuscript Editor Relationship Specialty Start Date End Date Shilpi Castañeda APRN [address] [place] [address] PCP - General Internal Medicine 05/28/16 documented as of this encounter
--- OUTSIDE RECORDS SUMMARY | 2024-02-22 17:22 | XMS_ITS | Encounter Summary ---
Author Organization [facility] Address [facility] [place] [address] Care Team Providers Care Psychiatric Tech Name Role Phone Shilpi Castañeda APRN Primary Care Provider [phone] Reason for Visit * Reason Comments Blurred Vision * Consultation (Routine) - Closed Specialty Diagnoses / Procedures Referred By Contfabián t Referred To Contact Ophthalmology Diagnoses DRY AMD Procedures CONSULT, TEST & TREAT Shilpi Castañeda APRN [address] [place] [address] Ana Curiel MD [facility] [place] [address] Referral ID Status Reason Start Date Expiration Date V isits Requested Visits Authorized [id number] Closed Evaluate and Treat Connection Center 05/28/2016 05/28/2017 1 1 Encounter Details Date Type Department Care Team (Late st Contact Info) Description 07/15/2016 10:30 AM EDT Office [place] [address] Ana Curiel MD Nonexudative age-related macular degeneration Social History Tobacco Use Types Packs/Day Years Used Date Smoking Tobacco: Former Cigarettes Q uit: 2011 Alcohol Use Standard Drinks/Week Comments Yes 0 (1 standard drink = 0.6 oz pur e alcohol) Sex and Gender Information Value Date Recorded Sex Assigned at Not on file Gender Identity Not on file Sexual Orientation Not on file documented as of this encounter Progress Notes * Ana Curiel MD - 07/15/2016 10:30 AM EDT 1. Trace AMD, non-exudative OU with + family hx in mother (who could still see at age 100). 2. Systemic diabetes. No retinopathy. Imp: Stable Plan: Discussed AMD at length. Taking AREDS vitamins is optional for her, as her drusen are so minor. Amsler grid given. Advise yearly retinal examination. documented in this encounter Plan of Treatment Not on file documented as of this encounter Visit Diagnoses Diagnosis Nonexudative age-related macular degeneration Nonexudative senile macular degeneration of retina documented in this encounter Care Teams Psychiatric Tech Relationship Specialty Start Date End Date Shilpi Castañeda, [employer] [address] [place] [address] PCP - General Internal Medicine 05/28/16 documented as of this encounter
--- OUTSIDE RECORDS SUMMARY | 2024-02-22 17:22 | XMS_ITS | Encounter Summary ---
Author Organization [facility] [place] [place] [address] Care Team Providers Care Human Resources Coordinator Name Role Phone Kassi Richard MD Primary Care Provider [phone] Reason for Visit * Reason Comments Bladder Cancer Encounter Details Date Type Department Care Team (Late st Contact Info) Description 01/26/2015 1:40 PM EST [place] [id number] Carrie Brown MD [facility] [place] [address] Gross hematuria (Primary Dx); Malignant neoplasm of lateral wall of urinary bladder Social History Tobacco Use Types Packs/Day Years Used Date Smoking Tobacco: Former Sex and Gender Information Value Date Recorded Sex Assigned at Not on file Gender Identity Not on file Sexual Orientation Not on file documented as of this encounter Last Filed Vital Signs Vital Sign Reading Time Taken Comments Blood Pressure 139/65 01/26/2015 1:07 PM EST Pulse 72 01/26/2015 1:07 PM EST Temperature 36.5 ??C (97.7 ??F) 01/26/2015 1:07 PM ES T Respiratory Rate 18 01/26/2015 1:07 PM EST Oxygen Saturation 100% 01/26/2015 1:07 PM EST Inhaled Oxygen Concentration - - Weight 68 kg (150 lb) 01/26/2015 1:07 PM EST Height 167.6 cm (5' 6) 01/26/2015 1:07 PM EST Body Mass Index 24.21 01/26/2015 1:07 PM EST documented in this encounter Patient Instructions * Patient Instructions* Vince Burrell LPN - 01/26/2015 1:27 PM EST Instructions following Cystoscopy Activity: As tolerated by your comfort level. Fluids: You should increase your water today. Avoid coffee, tea and cola. You do not need to ounces of water today. Urination: You will likely have a small amount of blood in your urine for the next several days. This is normal; however, if you are passing large amounts of blood clots or are unable to void please call our office at [phone] before 5PM or [phone] after hours. Please call if: * you have copious blood in your urine * fevers greater than 101.3 F * you are unable to void The number for questions is [phone] before 5 PM weekdays and [phone] after 5 PM and weekends. Follow-up: With Dr Brown documented in this encounter Progress Notes * Carrie Brown MD - 01/26/2015 2:34 PM EST Urology establish note Chief complaint Follow-up bladder cancer as well as decreased force of stream History of present illness This is a 69-year-old female who presents for evaluation of decreased force of stream in addition cystoscopy secondary to a history of bladder cancer high- grade resected in 2010. She also underwent BCG treatments but has not been on maintenance BCG. She has had negative surveillance cystoscopies since that time. Mostly she complains of decreased force of stream and feeling of incomplete void. She denies any burning with urination gross hematuria suprapubic pain or flank pain. There are no new medicines or medical problems that would attribute to her symptoms. She denies any other neurological symptoms of headache visual blurring muscle weakness or tingling. Past medical and surgical history are unchanged since prior visit ROS: Denies any fever or chills Denies any cough or shortness of breath Denies any chest pain pressure Denies any abdominal pain constipation or diarrhea She does have anxiety and depression Physical exam Well-appearing no acute distress alert and oriented ??3 Neck is supple without lymphadenopathy trachea is midline Chest is symmetric with equal excursion Heart is regular rate and rhythm Abdomen is soft without mass distention or tenderness Genitalia; normal external genitalia some atrophy normal urethral meatus without evidence of cystocele rectocele Extremities are without clubbing cyanosis or edema Postvoid residual by bladder scan is 24 mL Urinalysis is negative in normal Impression plan Recommend cystoscopy today for surveillance cystoscopy. Recommend time voids behavioral modification relaxation exercises as discussed with her. Recommend follow-up in 8 months for cystoscopy, or sooner as needed. CARRIE BROWN MD documented in this encounter Plan of Treatment Scheduled Orders Name Type Priority Associated Diagnoses Orde r Schedule Cystoscopy PROCEDURE Routine Gross hematuria Ordered: 01/26/2015 documented as of this encounter Visit Diagnoses Diagnosis Gross hematuria- Primary Malignant neoplasm of lateral wall of urinary bladder documented in this encounter Care Teams Human Resources Coordinator Relationship Specialty Start Date End Date Kassi Richard MD [address] [place] [address] PCP - General 07/14/14 05/27/16 documented as of this encounter
--- OUTSIDE RECORDS SUMMARY | 2024-02-22 17:22 | XMS_ITS | Encounter Summary ---
[place] [address] Care Team Providers Care Computer Systems Design Analyst Name Role Phone Shilpi Castañeda APRN Primary Care Provider [phone] Reason for Visit * Consultation (Routine) - Closed Specialty Diagnoses / Procedures Referred By Anil t Referred To Contact Allergy Diagnoses Other allergy status, other than to drugs and biological substances Allergy to other foods Shilpi Castañeda APRN [address] [place] [address] [facility] [address] [place] [id number] Referral ID Status Reason Start Date Expiration Date V isits Requested Visits Authorized [id number] Closed Consult, Test & Treat Connection Center PCP Updated and/or Approved 06/14/2020 06/14/2021 6 6 Encounter Details Date Type Department Care Team (Late st Contact Info) Description 01/31/2021 1:00 PM EST [place] [address] Reva Canada MD Adverse food reaction, initial encounter; Diarrhea, unspecified type Social History Tobacco Use Types Packs/Day Years [...] Sign Reading Time Taken Comments Blood Pressure 118/74 01/31/2021 1:28 PM EST Pulse 91 01/31/2021 1:28 PM EST Temperature - - Respiratory Rate - - Oxygen Saturation 97% 01/31/2021 1:28 PM EST Inhaled Oxygen Concentration - - Weight 67.1 kg (148 lb) 01/31/2021 1:28 PM EST Height - - Body Mass Index 23.89 01/26/2015 1:07 PM EST documented in this encounter Patient Instructions * Patient Instructions* Reva Canada MD - 01/31/2021 1:00 PM EST - Please keep a food diary and document food eaten and symptoms. Review the diary for any food pattern. If there is a specific food that you are having symptoms with, then avoid that food for eight weeks and see if you feel better. If you feel better, continue to avoid that food. If your symptoms are unchanged, then, re- introduce the food into your diet. - Avoid foods that you don't tolerate or react to - Continue loratadine ( Claritin) 10mg once daily as needed for seasonal allergy symptoms - Start famotidine ( Pepcid) 10mg once daily as needed for gastrointestinal upset - Follow up with your primary care provider for your health concerns and wellness. Please note that if you have any questions about the laboratory or radiologic tests being ordered, please call us prior to having the tests. If you have questions about the the cost of the tests being ordered, please contact the patient finance office at , prior to having the tests collected. Please contact the allergy clinic in 7-10 business days for your test results. You may call [phone] or send a message through the [facility] portal. documented in this encounter Progress Notes * Estefanía Perez MD - 01/31/2021 1:00 PM EST CC: Food Allergy HPI: Reva Quintana is a 75 y.o. female with a PMH of DM II presenting for evaluation of food insensitivities at the request of Shilpi Castañeda. Reva states her symptoms started in summer 2019 during a stress time related to world events and the pandemic. She said she had gradual onset (over the course of months) of an odd batch of digestive, respiratory, and sensory symptoms. Digestive symptoms included liquid diarrhea and cramping to several different foods. No bloating. No nausea, vomiting. Respiratory symptoms included some wheezing but no shortness of breath, no cough. Increased skin sensitivity but not rash. No facial or tongue swelling. Her media production support manager told her it may be histamine sensitivity. So she cut out high histamine foods like spinach, mushrooms, tomatoes, vinegar, fermented foods (saurkraut). She started feeling better but makes her own tomato sauce, yogurt, sauerkraut and misses these items from her diet. Also is lactose intolerant. Went gluten free several years ago. Her goal for today is to get dietary advice and know what foods she needs to avoid. She has kept food diaries in the past without much follow up from providers. She has seen a real estate agency principal/air conditioning manager in the past which was not helpful. She also has seasonal allergies. Symptoms include rhinorrhea, sinus congestion, post nasal drip, productive cough, general malaise and fatigue. She did take Claritin 10 mg daily this past summer and felt her symptoms were much better controlled. Stopped taking it when pollen levels dropped. ROS is per HPI all others reviewed and are negative. 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 CIS - depression ??? CIS - DM2 ??? Bladder cancer C67.9 Past Medical History: Diagnosis Date ??? Cancer bladder ??? Corneal abrasion left ??? Diabetes mellitus ??? GERD (gastroesophageal reflux disease) ??? Herpes ??? Seizures ??? Trauma childhood head trauma causing concussions Past Surgical History: Procedure Laterality Date ??? BLADDER SURGERY ??? CHOLECYSTECTOMY, LAPAROSCOPIC ??? CREATED BY INTERFACE appendectomy Procedure Date: Unknown ??? CREATED BY INTERFACE Cholecystectomy, Procedure Date: 1994 ??? CREATED BY INTERFACE Entered not Verified Procedure Date: 04/29/2010 ??? DILATION AND CURETTAGE OF UTERUS ??? ECTOPIC SURGERY ??? diphenhydrAMINE (Benadryl) 25 mg Capsule ??? SACCHAROMYCES BOULARDII ORAL ??? loratadine (Claritin) 10 mg Tablet ??? OREGANO OIL ORAL ??? NETTLE ROOT, BULK, MISC ??? CHROMIUM-GTF ORAL ??? glucosamine sulfate 500 mg Tablet ??? Cod Liver Oil Capsule ??? ASCORBATE CALCIUM (AMANDA-C ORAL) ??? Magnesium 250 mg Tablet ??? VIT B COMP/E AC SUCC/FA/HC 105 (ESTRO VITAL NUTRIENTS ORAL) ??? acyclovir (ZOVIRAX) 200 mg capsule ??? Lysine 500 mg Tab ??? VALERIAN ROOT ORAL ??? metFORMIN (GLUMETZA) 500 mg Tablet,SR,Bebo.Retention,24 hr Allergies Allergen Reactions ??? Lactose CIS - diarrhea, stomach pain, flatulance ??? Paraben CIS - swelling in eyes Family History Problem Relation Age of Onset ??? Macular Degeneration Mother ??? Cataracts Mother ??? Heart Disease Father ??? Diabetes Father Social History Socioeconomic History ??? Marital status: Spouse name: Not on file ??? Number of children: Not on file ??? Years of education: Not on file ??? Highest education level: Not on file Occupational History ??? Not on file Tobacco Use ??? Smoking status: Former Smoker Types: Cigarettes Quit date: 2012 Years since quittin.9 ??? Smokeless tobacco: Never Used Substance and Sexual Activity ??? Alcohol use: Yes ??? Drug use: Yes Types: Marijuana ??? Sexual activity: Not on file Other Topics Concern ??? Not on file Social History Narrative ??? Not on file Social Determinants of Health Financial Resource Strain: Not on file Food Insecurity: Not on file Transportation Needs: Not on file Physical Activity: Not on file Housing Stability: Not on file PHYSICAL EXAM: BP 118/74 Pulse 91 Wt 67.1 kg (148 lb) SpO2 97% BMI 23.89 kg/m?? Gen: awake, alert, no acute distress Head: normocephalic, atraumatic EYES: Conjunctiva not injected or icteric. No discharge. No eyelid edema. ENT: Tympanic membranes clear, no lesions, erythema, or drainage. Normal external ear canals. Nasalpassages show normal mucosa, normal turbinates bilaterally, no lesions. OP mucosa well hydrated, clear without erythema or cobblestoning. No lesions or exudates. No visible OP edema. NECK: supple, symmetric, no masses, trachea midline LYMPH: no submandibular, cervical, or supraclavicular LAD CVS: RRR, no m/r/g LUNGS: CTAB, no wheezing or rales, breathing unlabored ABD: soft, non-tender, non-distended, bowel sounds present SKIN: no rashes, normal color, no mottling EXTREMITIES: warm and well-perfused, normal bulk, symmetric ROM, no edema NEURO: EOMI, no dysarthria PSYCH: normal grooming, appropriate mood and affect, normal volume/quantity/tone of speech, normal thought process and content ASSESSMENT AND PLAN: 75 y.o. female with seasonal/environmental allergies. Advised to continue daily PRN loratadine for seasonal allergies. Other symptoms described today not clearly consistent with IgE mediated food allergies. Advised to continue low histamine diet if this prevents symptoms and slowly reintroduce desired foods 1 at a time in small quantities. Also discussed that 10 mg famotidine PRN for food relatedsymptoms is reasonable. Will order tryptase to assess for mastocytosis. Otherwise, advised food diary for record of foods, quantities, tolerability and reaction would be useful. Could consider further testing with serum IgE or skin testing if food diary demonstrates allergic symptoms in response tofood allergens. Estefanía Perez MD Internal Medicine, PGY2 Orders Placed This Encounter Procedures ??? Tryptase * Reva Canada MD - 01/31/2021 1:00 PM EST The case was discussed in person at the time of the visit or immediately after the visit. The assessment and plan were formulated in discussion with me and I agree with them as documented. I have reviewed the history, physical exam, assessment and plan with the resident. Major issues discussed today: 1. Adverse food reaction, initial encounter 2. Diarrhea, unspecified type Plan: As outlined in AVS and by Dr. Perez. documented in this encounter Plan of Treatment Not on file documented as of this encounter Procedures Procedure Name Priority Date/Time Associated Diagnosis Comments HC VENIPUNCTURE Routine 01/31/2021 2:53 PM EST Adverse food reaction, initial encounter Diarrhea, unspecified type documented in this encounter Results * Tryptase (01/31/2021 2:53 PM EST) Tryptase 4.2 <=8.4 ng/mL [facility] Comment: Total tryptase concentrations that are persistently greater than 20 ng/mL may be consistent with systemic mastocytosis. Blood 01/31/2021 2:53 PM EST 02/01/2021 7:37 AM EST Narrative Resulting Agency Comment Spec In Lab Reva Canada MD CHEMISTRY ORDERABLES Performing Organization Address City/State/[facility] Co de Phone Number [facility] [place] [address] documented in this encounter Visit Diagnoses Diagnosis Adverse food reaction, initial encounter Diarrhea, unspecified type documented in this encounter Care Teams Computer Systems Design Analyst Relationship Specialty Start Date End Date Shilpi Castañeda APRN [address] [place] [address] PCP - General Internal Medicine 05/28/16 documented as of this encounter
--- OUTSIDE RECORDS SUMMARY | 2024-02-22 17:22 | XMS_ITS | Encounter Summary ---
Author Organization [facility] [address] Care Team Providers Care Precision Agriculture Specialist Name Role Phone Kassi Richard MD Primary Care Provider Reason for Visit * Reason Comments Hematuria Encounter Details Date Type Department Care Team (Latest Contact Info) Description 07/14/2014 2:40 PM EDT Procedure [place] [phone] Carrie Brown MD [facility] [address] History of bladder cancer Discharge Disposition: Home Social History Tobacco Use Types Packs/Day Years Used Date Smoking Tobacco: Former Sex and Gender Information Value Date Recorded Sex Assigned at Not on file Gender Identity Not on file Sexual Orientation Not on file documented as of this encounter Patient Instructions * Patient Instructions* Akiko Odonnell, ANNABELLA - 07/14/2014 1:56 PM EDT Instructions following Cystoscopy Activity: As tolerated by your comfort level. Fluids: You should increase your water today. Avoid coffee, tea and cola. You do not need to [id number] ounces of water today. Urination: You will likely have a small amount of blood in your urine for the next several days. This is normal; however, if you are passing large amounts of blood clots or are unable to void please call our office at [phone] before 5PM or [phone] after hours. Please call if: * you have copious blood in your urine * fevers greater than 101.3 F * you are unable to void The number for questions is [phone] before 5 PM weekdays and [phone] after 5 PM and weekends. Follow-up: documented in this encounter Progress Notes * Carrie Brown MD - 07/14/2014 2:27 PM EDT Procedure Note Procedure: Flexible Cystoscopy Surgeon: Carrie Brown MD Preoperative Diagnosis: History of Bladder Cancer Post Operative Diagnosis: No evidence of Bladder Cancer Complications: None Procedure: Urinalysis revealed no evidence of an active urinary tract infection. After informed consent was obtained and the external genitalia appropriately had been cleaned and draped lidocaine was instilled into the urethra to achieve topical anaesthesia. The flexible telescope was inserted into the urethra and advanced into the bladder under direct vision. The bladder was systematically inspected through 360 degrees . Anterior urethroscopy was normal. The ureteral orifices were in normal position and effluxed clear urine. The bladder was normal. There were no bladder, tumors mucosal abnormalities or bladder stones. The cystoscope was removed. The patient tolerated the procedure without difficulty. There were no complications. Impression/plan: No evidence of recurrent disease recommend cystoscopy in 6 months or sooner as needed. Carrie Brown MD documented in this encounter Plan of Treatment Not on file documented as of this encounter Visit Diagnoses Diagnosis History of bladder cancer Personal history of malignant neoplasm of bladder documented in this encounter Care Teams Precision Agriculture Specialist Relationship Specialty Start Date End Date Kassi Richard MD [address] [place] [address] PCP - General 07/14/14 05/27/16 documented as of this encounter
--- OUTSIDE RECORDS SUMMARY | 2024-02-22 17:22 | XMS_ITS | Encounter Summary ---
Author Organization [facility] Address [address] [place] [address] Care Team Providers Care Financial Market Dealer Name Role Phone Sabine Sherwood MD Primary Care Provider Encounter Details Date Type Department Care Team (Late st Contact Info) Description 11/11/2011 Results Only [facility] [phone] Briana Mendez MD [address] [address] Social History Tobacco Use Types Packs/Day Years [...] Procedure Name Priority Date/Time Associated Diagnosis Comments CYTOPATHOLOGY Routine 11/11/2011 0:00 EDT documented in this encounter Results * CYTOPATHOLOGY (11/11/2011 0:00 EDT) Pathology Report: CYTOPATHOLOGY REPORT Reports generated via electronic interface contain original data; however they are lacking the format of the original report. Caution should be taken when reading/interpreti ng unformatted reports. Name: ? AMY QUINTANA ? Accession #: ? [id number] : ? 1945 (Age: 66) ??F ?Collect Date: ? 11/11/2011 Location: ? [facility] ? Receive Date: ? 11/12/2011 Provider: ? BRIANA MENDEZ MD Copy to: ?SABINE SHERWOOD MD ? CYTOLOGIC DIAGNOSIS: ? Urine, voided, cytological evaluation: 1. ?No malignant cells identified. 2. ? Scattered benign urothelial cells present. 3. ? Abundant external squamous cells present. Document reviewed and electronically signed by: ? JULY BLANTON MD Report Date: ??11/13/2011 08:39 By the signature above, the attending physician certifies that he/she has personally conducted a gross and/or microscopic examination of the described specimens and rendered or confirmed the above diagnosis. Specimen Type: ? Urine, Voided Clinical History: ? High grade bladder cancer ? Gross Description: ? One vial of Cytolyt was received and processed by selective cellular enhancement technique. ? End of Report [facility] 11/11/2011 11/12/2011 8:4 6 EDT us Briana Mendez MD PATHOLOGY ORDERABLES Final Re sult [facility] [address] [place] [address] documented in this encounter Visit Diagnoses Not on filedocumented in this encounter Care Teams Financial Market Dealer Relationship Specialty Start Date End Date Sabine Sherwood MD [address] [place] [phone] PCP - General 10/10/10 11/08/12 documented as of this encounter
--- OUTSIDE RECORDS SUMMARY | 2024-02-22 17:22 | XMS_ITS | Referral Summary ---
Author Organization [facility] Address [address] [place] [address] Care Team Providers Care Consulting Sales Manager Name Role Phone Rylee Marlow MD Primary Care Provider [phone] Social History Tobacco Use Types Packs/Day Years Used Date Smoking Tobacco: Never Assessed Comments Unknown Sex and Gender Information Value Date Recorded Sex Assigned at Not on file Legal Sex Female 18:41 EST Gender Identity Not on file Sexual Orientation Not on file Plan of Treatment Not on file Care Teams Consulting Sales Manager Relationship Specialty Start Date End Date Rylee Marlow MD [address] [place] [address] PCP - General 11/09/12
--- OUTSIDE RECORDS SUMMARY | 2024-02-22 17:22 | XMS_ITS | Encounter Summary ---
Author Organization [facility] Address [address] [place] [address] Care Team Providers Care Spar Finisher Name Role Phone Sabine Sherwood MD Primary Care Provider [phone] Encounter Details Date Type Department Care Team (Late st Contact Info) Description 10/24/2010 Results Only [facility] [phone] Briana Tomlin MD [address] [address] Social History Tobacco Use Types [...] Procedure Name Priority Date/Time Associated Diagnosis Comments SURGICAL PATHOLOGY Routine 10/24/2010 0:00 EDT documented in this encounter Results * SURGICAL PATHOLOGY (10/24/2010 0:00 EDT) Pathology Report: SURGICAL PATHOLOGY REPORT ? Reports generated via electronic interface contain original data; ? however they are lacking the format of the original report. ? Caution should be taken when reading/interpreti ng unformatted reports. ? Name: ? TACKHOWE, AMY L ? Accession #: ? [id number] ? : ? 1945 (Age: 65) ??F ? Collect Date: ? 10/24/2010 ? Location: ? [facility] ? Receive Date: ? 10/24/2010 ? Provider: BRIANA NISBET MD ? Copy to: SABINE SHERWOOD MD ? Final Pathologic Diagnosis: ? A. ?Bladder, tumor, curettage: ? 1. 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 reactive changes. ??See comment. ? 2. ? Submucosa/lamina propria with mixed acute and chronic inflammation, ? thrombosed vessels and cautery/reactive changes. ? 3. ? Negative for invasive carcinoma. ? B. ?Bladder, tumor, deep margin, excision: ? 1. ?Muscularis propria and submucosa with hemorrhage, chronic ? inflammation and reparative changes. ? 2. ? Negative for invasive carcinoma. ? Comment: ? In conjunction with selected slides from the prior case ([id number]), this ?? case has been reviewed in consultation with Dr. Jasmeet Bhatia and pepper calvin ?? with the above diagnoses. (Dr. Lopes)/mpl ? Document reviewed and electronically signed by: ? BRIANDA LOPES MD ? Report ??Date: 10/29/2010 16:16 ? By the signature above, the attending physician certifies that he/she has ? personally conducted a gross and/or microscopic examination of the described ? specimens and rendered or confirmed the above diagnosis. ? Specimen(s) Received: ? A. ?Bladder tumor ? B. ? Bladder tumor deep margin ? Clinical History: ? Bladder tumor ? Gross Description: ? Received in formalin labelled Tackhowe, Amy and bladder tumor are ?? multiple stout-licea soft tissue fragments measuring 2.5 x 2.0 x 0.8 cm in ? aggregate and weigh 1.2 grams. ??There is a moderate amount of cautery artifact. The specimen is entirely submitted as (A1) and (A2). ? Received in formalin labelled Tackhowe, Amy and bladder tumor deep margin is a stout-pink soft tissue fragment measuring 0.7 x 0.4 x 0.2 cm and weigh 0.1 ?? gram. ??The specimen is entirely submitted as (B). ? (Dr. Desai)/mpl ? End of Report ? [facility] 10/24/2010 10/24/2010 21: 24 EDT us Briana Tomlin MD PATHOLOGY ORDERABLES Final Re sult [facility] [address] [place] [address] documented in this encounter Visit Diagnoses Not on filedocumented in this encounter Care Teams Spar Finisher Relationship Specialty Start Date End Date Sabine Sherwood MD [address] [place] [phone] PCP - General 10/10/10 11/08/12 documented as of this encounter
--- OUTSIDE RECORDS SUMMARY | 2024-02-22 17:22 | XMS_ITS | Encounter Summary ---
Author Organization [facility] Address [address] [place] [address] Care Team Providers Care Edi Coordinator Name Role Phone Unavailable Primary Care Provider Unavailabl e Encounter Details Date Type Department Care Team (Late st Contact Info) Description 12/28/2006 Results Only [facility] conversion [address] [place] [address] Marzena Fountain, ARASELI [address] [place] [address] Social History Tobacco Use Types Packs/Day Years [...] Priority Date/Time Associated Diagnosis Comments CYTOPATHOLOGY Routine 12/28/2006 0:00 EST documented in this encounter Results * CYTOPATHOLOGY (12/28/2006 0:00 EST) Pathology Report: CYTOPATHOLOGY REPORT Reports generated via electronic interface contain original data; however they are lacking the format of the original report. Caution should be taken when reading/interpreti ng unformatted reports. Name: ? AMY QUINTANA ? Accession #: ? [id number] : ? 1945 (Age: 61) ??F ?Collect Date: ? 12/28/2006 Location: ? [facility] ? Receive Date: ? 12/30/2006 Provider: ?MARZENA FOUNTAIN STAMP CLASSIFIER Copy to: ? Specimen/Source: ?ThinPrep Pap Test, Cervix/Endocervix, processed on eLama ThinPrep Imaging System, with manual evaluation Last Menstrual Period: ? [id number] Hormonal/Contracep tive Status: ? Yes: E-String (Vaginal) Previous Gynecologic Pathology: ? Yes: (STD) @ 1972 Treatment History: ? Cryotherapy: @ 1996 Other: ? HPVA - HPV testing requested if ASC-US on the current ThinPrep Pap test. ? SPECIMEN ADEQUACY ? Satisfactory for Evaluation - transformation zone component present GENERAL CATEGORIZATION ? Negative for Intraepithelial Lesion or Malignancy INTERPRETATION ? Reactive cellular changes associated with inflammation present (includes repair). Shift in emma present suggestive of bacterial vaginosis. ? Document reviewed and electronically signed by: ? GRISEL COLE MD ? Report Date: ??01/05/2007 11:09 End of Report [facility] 12/28/2006 12/30/2006 us Marzena Fountain NP PATHOLOGY ORDERABLES Final Res ult [facility] [address] [place] [address] documented in this encounter Visit Diagnoses Not on filedocumented in this encounter
--- OUTSIDE RECORDS SUMMARY | 2024-02-22 17:22 | XMS_ITS | Encounter Summary ---
Author Organization [facility] Address [address] [place] [address] Care Team Providers Care Compact Assembler Name Role Phone Sabine Sherwood MD Primary Care Provider Encounter Details Date Type Department Care Team (Late st Contact Info) Description 02/25/2011 Results Only [facility] [phone] Briana Mendez MD [address] [address] Social History Tobacco Use Types [...] Priority Date/Time Associated Diagnosis Comments CYTOPATHOLOGY Routine 02/25/2011 0:00 EST SURGICAL PATHOLOGY Routine 02/25/2011 0:00 EST documented in this encounter Results * SURGICAL PATHOLOGY (02/25/2011 0:00 EST) Pathology Report: SURGICAL PATHOLOGY REPORT Reports generated via electronic interface contain original data; however they are lacking the format of the original report. Caution should be taken when reading/interpreting unformatted reports. Name: ? AMY QUINTANA ? Accession #: ? [id number] ? : ? 1945 (Age: 65) ??F ? Collect Date: ? 02/25/2011 ? Location: ? [facility] ? Receive Date: ? 02/25/2011 ? Provider: BRIANA MENDEZ MD Copy to: SABINE SHERWOOD MD ? Final Pathologic Diagnosis: ? Bladder, biopsy: 1. ?Chronic cystitis. 2. ? Urothelial epithelium with atypia of unknown significance. ??See comment. Comment: ? This case has been reviewed at intradepartmental consultation conference. (Dr. Jordan)/[facility] Document reviewed and electronically signed by: KIRSTEN LOVE MD Report ??Date: 02/28/2011 15:37 By the signature above, the attending physician certifies that he/she has personally conducted a gross and/or microscopic examination of the described specimens and rendered or confirmed the above diagnosis. Specimen(s) Received: ? Random bladder bxs Clinical History: ? S/P BCG Gross Description: ? Received in formalin labelled Tack, Amy and random bladder bxs are four stout-white, irregular soft tissue fragments ranging from 0.2 x 0.2 x 0.2 cm to 0.3 x 0.2 x 0.1 cm. ??The specimen is entirely submitted as (A1) and (A2). (Samantha Salazar)/[facility] End of Report [facility] 02/25/2011 02/25/2011 9:5 0 EST us Briana Mendez MD PATHOLOGY ORDERABLES Final Re sult [facility] [address] [place] [address] * CYTOPATHOLOGY (02/25/2011 0:00 EST) Pathologist [facility] Pathology Report: CYTOPATHOLOGY REPORT Reports generated via electronic interface contain original data; however they are lacking the format of the original report. Caution should be taken when reading/interpreti ng unformatted reports. Name: ? AMY QUINTANA ? Accession #: ? [id number] : ? 1945 (Age: 65) ??F ?Collect Date: ? 02/25/2011 Location: ? [facility] ? Receive Date: ? 02/26/2011 Provider: ? BRIANA MENDEZ MD Copy to: ?SABINE SHERWOOD MD ? CYTOLOGIC DIAGNOSIS: ? Urine, catheterized, cytological evaluation: - Atypical urothelial cells present. ??See comment. ? COMMENT: ? In a background of reactive urothelial cells are rare clusters of urothelial cells with increased nuclear to cytoplasmic ratios and nuclear membrane irregularities. ??These features are atypical and although they may represent atypical reactive cells, a neoplastic process cannot be entirely excluded. ??Please also see the concurrent surgical biopsy ([id number]). ??(Dr. Johnson)/[facility] Document reviewed and electronically signed by: ? LISA SALCEDO MD Report Date: ??02/28/2011 17:24 By the signature above, the attending physician certifies that he/she has personally conducted a gross and/or microscopic examination of the described specimens and rendered or confirmed the above diagnosis. Specimen Type: ? Urine, Catheterized Clinical History: ? S/P BCG ? Gross Description: ? One vial of Cytolyt was received and processed by selective cellular enhancement technique. ? End of Report [facility] 02/25/2011 02/26/2011 8:1 9 EST us Briana Mendez MD PATHOLOGY ORDERABLES Final Re sult Performing Organization Address City/State/[facility] Co de Phone Number [facility] [address] [place] [address] documented in this encounter Visit Diagnoses Not on filedocumented in this encounter Care Teams Compact Assembler Relationship Specialty Start Date End Date Sabine Sherwood MD [address] [place] [phone] PCP - General 10/10/10 9 documented as of this encounter
--- OUTSIDE RECORDS SUMMARY | 2024-02-22 17:22 | XMS_ITS | Encounter Summary ---
Author Organization Pending [facility] To [facility] Address [facility] [place] [address] Care Team Providers Care Auto Garage Mechanic Name Role Phone Shilpi Castañeda APRN Primary Care Provider [phone] Reason for Visit * Consultation (Routine) - Closed Specialty Diagnoses / Procedures Referred By Anil more Referred To Contact Dermatology Diagnoses Pruritus Shilpi Castañeda APRN [address] [place] [address] [facility] Dermatology [address] [place] [address] Referral ID Status Reason Start Date Expiration Date V isits Requested Visits Authorized [id number] Closed Consult, Test & Treat PCP Updated and/or Approved 06/04/2021 06/04/2022 6 6 Encounter Details Date Type Department Care Team (Late st Contact Info) Description 09/19/2021 11:15 AM EDT Office Visit Dermatology at [facility] [address] [place] [address] Jose Ramon Castillo MD [facility] [address]UTH[place] [address] Notalgia paresthetica; Seborrheic keratoses; Lentigines; Fay angioma; Seborrheic dermatitis; Xerosis cutis Social History Tobacco Use Types Packs/Day Years [...] as of this encounter Progress Notes * César Gallegos - 09/19/2021 11:15 AM EDT Images from the original note were not included. DEPARTMENT OF DERMATOLOGY Medical Dermatology Clinic Provider: Jose Ramon Castillo MD Patient's preferred name Reva Preferred contact method for results []?myDH []?Letter [x]?Phone: home Detailed phone message OK? yes Are there any other people with whom we may discuss your care? PAST MEDICAL HISTORY If no, type N. If yes, type date, location, treatment Melanoma No Dysplastic nevi No SCC No BCC No AKs No UV Exposure & Protection + history of blistering sunburn Sun protection: long sleeves, hats Other relevant past medical history (i.e. eczema, psoriasis, birthmarks, immunosuppression) Longitudinal melanonychia, left great toe nail Notalgia paresthetica ?? 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 History of Present Illness: Reva Quintana is a 76 y.o. Patient returns to clinic today for a full skin exam. - Raised and rough feeling lesion on the right inner thigh present for several weeks to months. Occasionally itchy but no burning or bleeding. - Reports itching on back and scalp. - No other spots of concern. Last visit at Dermatology: 08/08/2020 Last visit with this provider: 08/08/2020 Medications: Reviewed in eD-H Allergies: Reviewed in eD-H Skin Examination: Full skin examination: Patient asked to undress to their comfort level. Verbalized that the provider's preference is that patient remove all clothing and that the provider will not examine areas patient elects to keep covered. Examination of the scalp, hair, head, face, ears, neck, chest, axillae, abdomen, back, buttocks, genitalia, and upper and lower extremities was normal with the exception ofthe findings below. Assessment/Plan: #. Seborrheic Dermatitis - Yellowish, greasy scale overlying erythematous patches on the scalp. - Discussed etiology and treatment options. - Recommended Head and Shoulders or Selsen Blue shampoos. Provided hand out with various other options. #. Notalgia Paresthetica - In the back area where patient describes intense itch, there is no rash or other skin findings to account for symptoms. - Discussed diagnosis and possible relationship to irritated/inflamed nerve causing recurrent hyperpruritic sensation. - Recommended OTC Sarna lotion as needed. Discussed RX topical steroid. Pt declined at present #. Xerosis - Diffuse xerosis. - Recommended applying a bland moisturizer (such as CeraVe cream) daily immediately after bathing. #. Seborrheic Keratoses - Stuck on, waxy papules on the trunk and extremities. - Discussed benign nature of lesions and provided reassurance. No treatment necessary at this time. #. Fay Angiomas - Multiple bright red, well-demarcated papules on the trunk and extremities. - Discussed benign nature of lesions and provided reassurance. No treatment necessary at this time. #. Lentigines - Scattered light-brown, evenly pigmented, well-demarcated macules on sun-exposed areas of the trunk and extremities. - No worrisome pigmented lesions. Discussed benign nature of lesions and provided reassurance. Willcontinue to monitor. Other: ??? N/A RTC: 1 year for FSE []Note routed to director physical therapy [x]Recall placed in scheduling system []Appointment scheduled at checkout Scribe attestation: César Gallegos has performed the documentation for this encounter in the presence of and acting as a scribe for Jose Ramon Castillo MD. I performed the above scribed service and agree with the accuracy of the documentation in this encounter. Reviewed and signed by: Jose Ramon Castillo MD Dermatology [facility] documented in this encounter Plan of Treatment Scheduled Referrals Name Type Priority Associated Diagnoses Order Schedule Referral to Dermatology Outpatient Referral Routine Pruritus Ordered: 06/04/2021 documented as of this encounter Visit Diagnoses Diagnosis Notalgia paresthetica Disturbance of skin sensation Seborrheic keratoses Lentigines Other dyschromia Fay angioma Nevus, non-neoplastic Seborrheic dermatitis Seborrheic dermatitis, unspecified Xerosis cutis Other specified disease of sebaceous glands documented in this encounter Care Teams Auto Garage Mechanic Relationship Specialty Start Date End Date Shilpi Castañeda APRN [address] [place] [address] PCP - General Internal Medicine 05/28/16 documented as of this encounter
--- OUTSIDE RECORDS SUMMARY | 2024-02-22 17:22 | XMS_ITS | Encounter Summary ---
Author Organization [facility] Address [address] [place] [address] Care Team Providers Care Silviculture Teacher Name Role Phone Unavailable Primary Care Provider Unavailabl e Encounter Details Date Type Department Care Team (Late st Contact Info) Description 01/03/2008 Before [facility] Converted Visit ([facility]) [facility] conversion [address] [place] [address] Marzena Fountain, ARASELI [address] [place] [address] Social History Tobacco Use Types [...] Priority Date/Time Associated Diagnosis Comments CYTOPATHOLOGY Routine 01/03/2008 0:00 EST documented in this encounter Results * CYTOPATHOLOGY (01/03/2008 0:00 EST) Pathology Report: CYTOPATHOLOGY REPORT ? Reports generated via electronic interface contain original data; ? however they are lacking the format of the original report. ? Caution should be taken when reading/interpreti ng unformatted reports. ? Name: ? AMY QUINTANA ? Accession #: ? [id number] ? : ? 1945 (Age: 62) ??F ?Collect Date: ? 01/03/2008 ? Location: ? [facility] ? Receive Date: ? 01/05/2008 ? Provider: ?MARZENA FOUNTAIN [employer] TECHNICAL MANAGER ? Copy to: ? Specimen/Source: ?Pap Test, Cervix/Endocervix, ThinPrep Imaging System ? with manual evaluation ? Last Menstrual Period: ? 1998 ? Hormonal/Contracep tive Status: ? Yes: estring MIS 2 mg - 2/90 day ring + metrogel ? Previous Gynecologic Pathology: ? Yes: STD 1972 ? Treatment History: ? Cryotherapy: 1997 ? Other: ? HPVA - HPV testing requested if ASC-US on the current ThinPrep Pap test. ? SPECIMEN ADEQUACY ? Satisfactory for Evaluation ? - transformation zone component present ? GENERAL CATEGORIZATION ? Negative for Intraepithelial Lesion or Malignancy ? Document reviewed and electronically signed by: ? Omar Ledezma, CT(ASCP) ? Report Date: ??01/10/2008 10:17 ? End of Report ? [facility] 01/03/2008 01/05/2008 us Marzena Fountain [employer] TECHNICAL MANAGER PATHOLOGY ORDERABLES Final Res ult [facility] [address] [place] [address] documented in this encounter Visit Diagnoses Not on filedocumented in this encounter
--- OUTSIDE RECORDS SUMMARY | 2024-02-22 17:22 | XMS_ITS | Encounter Summary ---
Author Organization [facility] [place] [address] Care Team Providers Care Leaf Conditioner Helper Name Role Phone Shilpi Castañeda DEEDEE Primary Care Provider [phone] Reason for Visit * Reason Onset Date Comments Bumped Appointment 09/25/2020 Encounter Details Date Type Department Care Team (Late st Contact Info) Description 09/25/2020 [place] [phone] Radha Moncada OD [facility] [place] [address] [place] [address] Bumped Appointment Social History Tobacco Use Types Packs/Day Years Used Date Smoking Tobacco: Former Cigarettes Q uit: 2011 Smokeless Tobacco: Never Alcohol Use Standard Drinks/Week Comments Yes 0 (1 standard drink = 0.6 oz pur e alcohol) Sex and Gender Information Value Date Recorded Sex Assigned at Not on file Gender Identity Not on file Sexual Orientation Not on file documented as of this encounter Miscellaneous Notes * Telephone Encounter - Funmi Reynolds - 09/25/2020 3:45 PM EDTSummary: Unable to reach Antwan pt re: BMP appt, letter mailed. Tried to reach pt 3x during the afternoon of 09/25/20, reached a busy signal each time. Letter mailedto pt to let her know she needs to RSC her 10/11/20 BMP 2x NPW Antwan appt for: KENTRELL. documented in this encounter Plan of Treatment Not on file documented as of this encounter Visit Diagnoses Not on filedocumented in this encounter Care Teams Leaf Conditioner Helper Relationship Specialty Start Date End Date Shilpi Castañeda APRN [address] [place] [address] PCP - General Internal Medicine 05/28/16 documented as of this encounter
--- OUTSIDE RECORDS SUMMARY | 2024-02-22 17:22 | XMS_ITS | Encounter Summary ---
Author Organization [facility] Address [facility] [place] [address] Care Team Providers Care Progressive Care Manager Name Role Phone Shilpi Castañeda APRN Primary Care Provider [phone] Encounter Details Date Type Department Care Team (Late st Contact Info) Description 09/04/2022 Telephone Dermatology at [facility] [address] [place] [address] Jose Ramon Castillo MD [facility] [address] [place] [address] Social History Tobacco Use Types Packs/Day Years [...] encounter Miscellaneous Notes * Telephone Encounter - Linda Savage - 09/04/2022 9:38 AM EDT I reached out to Reva this morning to help schedule a visit for her & her spouse with Dr. Castillo. Left v/m with my direct callback number for patient to return my call at his soonest convenience. documented in this encounter Plan of Treatment Not on file documented as of this encounter Visit Diagnoses Not on filedocumented in this encounter Care Teams Progressive Care Manager Relationship Specialty Start Date End Date Shilpi Castañeda, PHARMACIST AIDE [address] [place] [address] PCP - General Internal Medicine 05/28/16 documented as of this encounter
--- OUTSIDE RECORDS SUMMARY | 2024-02-22 17:22 | XMS_ITS | Encounter Summary ---
Author Organization [facility], Located Within [facility] [place] [address] Care Team Providers Care Staffing Coordinator Name Role Phone Shilpi Castañeda DEEDEE Primary Care Provider [phone] Reason for Visit * Reason Onset Date Comments Other 10/18/2020 Concerns for dil ated pupils Encounter Details Date Type Department Care Team (Late st Contact Info) Description 10/18/2020 [place] [phone] Radha Moncada, [facility] [place] [address] Other (Concerns for dilated pupils) Social History Tobacco Use Types Packs/Day Years [...] * Telephone Encounter - Funmi Reynolds - 10/19/2020 2:12 PM EDTSummary: Next Avail NPW DM DANELLE: 01/10/21 Called and spoke with pt to [facility] an appt with Dr Tejeda on 01/10/21 for: Next Avail Retina Evalfor: Choroidal nevus. Reviewed location, duration, recommendation of a tow driver, that eyes are dilated for this exam. Pt wanted to know why she had to have this exam and wanted to know why Dr Moncada could not tell her more about the condition. Explained that this exam was to discover the propertiesof the freckle and gather baseline information for the future in case the condition changed. Pt shared that her experience in the eye clinic was unsettling, due to a number of factors. She said that her eyes were sore after the exam, she wasn't understanding what Dr Moncada was saying with regard to her freckle and what they were. She said that she felt a bit rushed out the door by the doctor that she was upset and the combination of wearing a mask and glasses she fogged them all up and had to stop in the hallway where she said she began crying. She said; A kind person stopped and offered help but when she asked where she could find a quiet place to collect herself they didn't know where there was one. She said after that somehow got herself turned around and lost sense of where she was but did see the map near the elevators. She said that she looked at the map and read words You are here but there wasn't a marker on the map so she could place herself with regard to the hospital on map. She sat down for a while longer and realized that she was near the front entrance and once outside and able to take her mask off and that made her feel much better. She also asked that we put a marker on the map for orientation purposes, after all our pt's have their eyesdilated and it is tough to see. Pt thanked me for listening. Forwarding note to Ad-min supervisors for review. * Telephone Encounter - Gwendolyn Jarrett COT - 10/18/2020 3:55 PM EDT Patient called as pupils still dilated and very bothersome. Told would last 2-3 hours. Called patient to reassure, the dilation has just mostly resolved. Patient has not had a problem inthe past. Explained, perhaps due to cataract formation. She also wonders what Dr. Moncada was trying to talk to her about, some kind of freckle? Reviewed exam with patient and noted choroidal nevus LE that was not noted at 2017 visit. Patient indicated, Dr. Antwan did mention a referral for another provider. Did not get AVS to explain this. documented in this encounter Plan of Treatment Not on file documented as of this encounter Visit Diagnoses Not on filedocumented in this encounter Care Teams Staffing Coordinator Relationship Specialty Start Date End Date Shilpi Castañeda APRN [address] [place] [address] PCP - General Internal Medicine 05/28/16 documented as of this encounter
--- OUTSIDE RECORDS SUMMARY | 2024-02-22 17:22 | XMS_ITS | Encounter Summary ---
Author Organization [facility] Address [facility] [place] [address] Care Team Providers Care Clinical Reviewer Name Role Phone Sabine Garcia MD Primary Care Provider [phone] Encounter Details Date Type Department Care Team (Latest Contact Info) Description 04/16/2012 - 04/16/2012 11:59 PM EST Hospital Encounter Radiology Library at [facility] [place] [phone] Ana Curiel MD Discharge Disposition: Home Social History Tobacco Use Types Packs/Day Years Used Date Smoking Tobacco: Former Sex and Gender Information Value Date Recorded Sex Assigned at Not on file Gender Identity Not on file Sexual Orientation Not on file documented as of this encounter Medications at Time of Discharge Medication Sig Dispensed Refills Start Date End Date acyclovir (ZOVIRAX) 200 mg capsuleIndications:recu rrent herpes genitalis Take 800 mg by mouth once as needed (if that doesn't help then 400mg BID). Reported on 07/15/2016 Indications: recurrent genital herpes Lysine 500 mg Tab Take by mouth 2 times daily. VALERIAN ROOT ORAL 07/02/2009 aspirin 81 mg EC tablet Take 81 mg by mouth daily. Reported on 07/15/2016 01/31/2021 VIT A & D3 IN COD LIVER OIL ORAL Take by mouth. 07/15/2016 S-Adenosylmethionine (CHA-E, ENTERIC COATED,) 400 mg TbEC Take by mouth. 01/31 UNABLE TO FIND Lavela - 2 capsules daily 07/15/2016 CIS Free Text Med - metformin ER 500mg 2 tablets PO Twice daily 07/19/2009 01/31/2021 multivitamin (THERAGRAN) tablet 07/02/2009 7 GLUC HCL/GLUC WALTERS/AC-D-GLUCOS (GLUCOSAMINE COMPLEX ORAL) 07/02/2009 07/15/2016 documented as of this encounter Plan of Treatment Not on file documented as of this encounter Procedures Procedure Name Priority Date/Time Associated Diagnosis Comments FILM LIBRARY STORAGE ONLY CT SPINE Routine 04/16/2012 12:00 AM EST documented in this encounter Results * Film Library- Storage Only CT Spine (04/16/2012 12:00 AM EST) Narrative [facility] - 07/15/2017 3:57 PM EDT This exam is for storage only and is auto-finalizing. Ana Curiel MD IMG FILM LIBRARY O RDERABLES Performing Organization Address City/State/[facility] Co de Phone Number [place], [place] documented in this encounter Visit Diagnoses Not on filedocumented in this encounter Care Teams Clinical Reviewer Relationship Specialty Start Date End Date Sabine Garcia MD [address] [place] [address] PCP - General 01/15/10 07/13/14 documented as of this encounter
--- OUTSIDE RECORDS SUMMARY | 2024-02-22 17:22 | XMS_ITS | Clinical Summary ---
Author Organization [facility] Address [facility] [place] [address] Care Team Providers Care Jr. Systems Administrator Name Role Phone Shilpi Castañeda DEEDEE Primary Care Provider [phone] Allergies Active Allergy Reactions Criticality Noted Date Comments Lactose Medium CIS - diarrhea, stomach pain, flatulance Paraben CIS - swelling in eyes Medications Medication Sig Dispensed Refills Start Date End Date Status VALERIAN ROOT ORAL 07/02/2009 Active acyclovir (ZOVIRAX) 200 mg capsuleIndications:re current herpes genitalis Take 800 mg by mouth once as needed (if that doesn't help then 400mg BID). Reported on 07/15/2016 Indications: recurrent genital herpes Active Lysine 500 mg Tab Take by mouth 2 times daily. Active Magnesium 250 mg Tablet Take 250 mg by mouth. Active VIT B COMP/E AC SUCC/FA/HC 105 (ESTRO VITAL NUTRIENTS ORAL) Take by mouth. Active metFORMIN (GLUMETZA) 500 mg Tablet,SR,Bebo.Retent ion,24 hr Take 500 mg by mouth 2 times daily (with meals). Active CHROMIUM-GTF ORAL Take 250 mg by mouth 2 times daily. Active glucosamine sulfate 500 mg Tablet Take 500 mg by mouth 2 times daily. Active Cod Liver Oil Capsule Take by mouth. Active ASCORBATE CALCIUM (AMANDA-C ORAL) Take 500 mg by mouth. Active NETTLE ROOT, BULK, MISC by Misc.(Non-Drug; Combo Route) route daily as needed. Active diphenhydrAMINE (Benadryl) 25 mg Capsule Take 25 mg by mouth nightly as needed for Sleep. Active SACCHAROMYCES BOULARDII ORAL Take by mouth. Active loratadine (Claritin) 10 mg Tablet Take 10 mg by mouth as needed for Allergies. Active OREGANO OIL ORALIndications:for stomach upset Take by mouth. Indications: for stomach upset Active ketoconazole (NIZORAL) 2 % ShampooIndications:Se bopsoriasis Apply topically to the scalp and face, lather in the shower and leave on for 5 minutes, then rinse. Repeat daily for two weeks then decrease to 3 x weekly for maintenance. 120 mL 11 12/03/2023 Active fluocinonide (LIDEX) 0.05 % SolutionIndications:S ebopsoriasis Apply topically to the affected areas on the scalp daily for two weeks when flaring. 60 mL 3 12/03/2023 Active Active Problems Problem Noted Date Diagnosed Date Bladder cancer 01/26/2015 CIS - depression 01/17/2009 CIS - DM2 01/17/2009 Encounters Date Type Department Care Team Description 12/03/2023 2:15 PM EDT Office Visit [facility]ology at [facility] [address] [place] [phone] Jose Ramon Castillo MD Skin cancer screening; Sebopsoriasis; SK (seborrheic keratosis); Multiple benign nevi; Lentigines; Fay angioma 12/03/2023 Travel from Last 3 Months Immunizations Name Administration Dates Next Due Pneumococcal 23-Valent Polysaccharide (Pneumovax 23) 10/08/2006 Family History Medical History Relation Comments Diabetes Father Heart Disease Father Cataracts Mother Macular Degeneration Mother Relation Status Comments Father Mother Social History Tobacco Use Types Packs/Day Years Used Date Smoking Tobacco: Former Cigarettes Q uit: 2012 Smokeless Tobacco: Never Alcohol Use Standard Drinks/Week Comments Yes 0 (1 standard drink = 0.6 oz pur e alcohol) Sex and Gender Information Value Date Recorded Sex Assigned at Not on file Gender Identity Not on file Sexual Orientation Not on file Last Filed Vital Signs Vital Sign Reading Time Taken Comments Blood Pressure 118/74 01/31/2021 1:28 PM EST Pulse 91 01/31/2021 1:28 PM EST Temperature 36.5 ??C (97.7 ??F) 01/26/2015 1:07 PM ES T Respiratory Rate 18 01/26/2015 1:07 PM EST Oxygen Saturation 97% 01/31/2021 1:28 PM EST Inhaled Oxygen Concentration - - Weight 67.1 kg (148 lb) 01/31/2021 1:28 PM EST Height 167.6 cm (5' 6) 01/26/2015 1:07 PM EST Body Mass Index 23.89 01/26/2015 1:07 PM EST Plan of Treatment Health Maintenance Due Date Last Done Comments Hepatitis C Screening 1962 Tetanus/Diphtheria/Pertussis Vaccines (1 - Tdap) 06/22 Zoster vaccine (1 of 2) 1994 Advance Directive 06/23/1999 Pneumoccocal Vaccine: 65+ (2 of 2 - PCV) 10/09/2007 10/08/2006 Bone Density Scan 2009 RSV Vaccine (1 - 1-dose 75+ series) 06/23/2019 Covid-19 Vaccine (1 - 2023- season) 2023 Influenza (Flu) vaccine (1 o f 1 - Influenza standard series) 10/25/2023 Care Teams Jr. Systems Administrator Relationship Specialty Start Date End Date Shilpi Castañeda APRN [address] [place] [address] PCP - General Internal Medicine 05/28/16
--- OUTSIDE RECORDS SUMMARY | 2024-02-22 17:22 | XMS_ITS | Encounter Summary ---
Author Organization [facility] Address [facility] [place] [address] Care Team Providers Care Back Closer Name Role Phone Shilpi Castañeda DEEDEE Primary Care Provider [phone] Encounter Details Date Type Department Care Team (Late st Contact Info) Description 02/20/2022 Telephone Dermatology at [facility] [address] [place] [address] Jose Ramon Castillo MD [facility] [address] [address] Social History Tobacco Use Types Packs/Day Years [...] encounter Miscellaneous Notes * Telephone Encounter - Anni Holder - 02/20/2022 2:06 PM EST Pt called and the pt was seen 08/2021 and the shampoo he recommended is not working. Can she please get something stronger to use. Call the pt [phone]. The pharmacy she uses is [facility] in [facility] documented in this encounter Plan of Treatment Not on file documented as of this encounter Visit Diagnoses Not on filedocumented in this encounter Care Teams Back Closer Relationship Specialty Start Date End Date Shilpi Castañeda APRN [address] [place] [address] PCP - General Internal Medicine 05/28/16 documented as of this encounter
--- OUTSIDE RECORDS SUMMARY | 2024-02-22 17:22 | XMS_ITS | Encounter Summary ---
Author Organization [facility] [place] [address] Care Team Providers Care Photographic Hand Developer Name Role Phone Hanna Castañedayce Ryan MARK Primary Care Provider [phone] Encounter Details Date Type Department Care Team (Latest Contact Info) Description 04/22/2019 12:00 PM EST - 04/22/2019 11:59 PM [facility] Hospital Encounter [place] [address] Adan Jernigan MD [address] [place] [address] Chest pain, unspecified type Discharge Disposition: Home Social History Tobacco Use [...] Sig Dispensed Refills Start Date End Date metFORMIN (GLUMETZA) 500 mg Tablet,SR,Bebo.Retentio n,24 hr Take 500 mg by mouth 2 times daily (with meals). CHROMIUM-GTF ORAL Take 250 mg by mouth 2 times daily. glucosamine sulfate 500 mg Tablet Take 500 mg by mouth 2 times daily. Cod Liver Oil Capsule Take by mouth. ASCORBATE CALCIUM (AMANDA-C ORAL) Take 500 mg by mouth. Magnesium 250 mg Tablet Take 250 mg by mouth. VIT B COMP/E AC SUCC/FA/HC 105 (ESTRO VITAL NUTRIENTS ORAL) Take by mouth. acyclovir (ZOVIRAX) 200 mg capsuleIndications:recu rrent herpes genitalis Take 800 mg by mouth once as needed (if that doesn't help then 400mg BID). Reported on 07/15/2016 Indications: recurrent genital herpes Lysine 500 mg Tab Take by mouth 2 times daily. VALERIAN ROOT ORAL 07/02/2009 VIT C/E/ZN/COPPR/LUTEIN/BETITO MARIANNA (PRESERVISION AREDS 2 ORAL) Take by mouth. 01/31/2021 magnesium citrate Solution Take 200 mLs by mouth. 01/31 ACETYLCARNITINE HCL (ACETYL L-CARNITINE ORAL) Take 500 mg by mouth. 2020 AGAR MISC by Misc.(Non-Drug; Combo Route) route. 01/31/2021 LORazepam (ATIVAN) 0.5 mg Tablet Take 0.5 mg by mouth as needed for Anxiety. estradiol (VAGIFEM) [address] 20 mcg vaginally twice a week. 01/31/2021 aspirin 81 mg EC tablet Take 81 mg by mouth daily. Reported on 07/15/2016 01/31/2021 S-Adenosylmethionine (CHA-E, ENTERIC COATED,) 400 mg TbEC Take by mouth. 01/31 CIS Free Text Med - metformin ER 500mg 2 tablets PO Twice daily 07/19/2009 01/31/2021 documented as of this encounter Plan of Treatment Not on file documented as of this encounter Procedures Procedure Name Priority Date/Time Associated Diagnosis Comments ECHO COMPLETE Routine 04/22/2019 12:09 PM EST Chest pain, unspecified type documented in this encounter Results * ECHO COMPLETE (04/22/2019 12:09 PM EST) EF 60 HEARTEnTouch Controls SYSTEM Anatomical Region Laterality Modality Other 04/22/2019 Narrative 04/22/2019 12:35 PM EST Procedure: ?Transthoracic Echocardiogram Patient: ?LILIAN Davison . ?(Age): 1945(73y) Med Rec#: ? [id number] ?Sex: ?F ? Site Loc: ? [place] ??Ht / Wt: ??167.64(cm)/69.4 Pt. Loc: ?BSA: ?1.78 Study Date: ?? 04/22/2019 ?Pt. Type: Inpatient Tape: ? Referring: VERITO Referring: [facility] (Diag Imaging) Referring: [facility](Med/Surg) Referring: [facility](Med Rec) Reading: Jose Alberto Burk ([id number]) Rn Iv Therapy: TRAV Rn Iv Therapy: TRAV Diagnosis: *Chest pain, unspecified (R07.9) BP: ? 92/52 SUMMARY: 1. Left ventricular chamber size, wall thickness, global and segmental systolic function are within normal limits. Ejection fraction is estimated to be 60%. 2. Right ventricular chamber size, wall thickness, and systolic function are within normal limits. 3. The left atrium is normal in size. 4. The cardiac valves appear structurally and functionally normal. 5. See remainder of report for additional findings. Findings ? : Left Ventricle: ? Left ventricular chamber size, wall thickness, global and segmental systolic function are within normal limits. Ejection fraction is estimated to be 60%. Left Atrium: ? The left atrium is normal in size. Right Ventricle: ? Right ventricular chamber size, wall thickness, and systolic function are within normal limits. ?Pulmonary artery hypertension could not be assessed due to inadequate tricuspid regurgitation jet. Right Atrium: ? The right atrium appears normal. Aortic Valve: ? The aortic valve is trileaflet. The leaflets are thin with normal excursion. There is no aortic stenosis or regurgitation present. ?There is no evidence of aortic valve stenosis. ?There is no evidence of aortic regurgitation. Mitral Valve: ? The mitral valve leaflets appear normal. ?There is trace mitral regurgitation present. Tricuspid Valve: ? The tricuspid valve leaflets are morphologically normal. ?There is trace tricuspid regurgitation present. Pulmonic Valve: ? The pulmonic valve is not well visualized. Pericardium: ? A trivial pericardial effusion is visualized. Aorta: ? The ascending aorta is normal in size. Pulmonary Artery: ? The main pulmonary artery is not well visualized. Venous: ? The inferior vena cava appears normal. Misc: ? Two-dimensional echo, spectral Doppler and color Doppler performed. Chambers 2D ?Value ?Units (Range) ? IVSd (2D) ? 0.7 ?cm ? LVPWd (2D) ?0.73 ? cm ? IVS:LVPW ratio (2D) 0.96 ? ratio ? LVIDd (2D) ?4.3 ?cm ? LVIDs (2D) ?3.43 ? cm ? LV FS (2D) ?20.17 ?% ? EF Teichholz (2D) ?? 41.57 ?% ? Ascending Ao ?3.1 ?cm (2 - 3.5) ? Volumes/Mass ?Value ?Units (Range) ? LA ESV BP (A/L) inde16.54 ?ml/m2 ? LV ESV SP 4CH (MOD) 27.72 ?ml ? LV ESV SP 2CH (MOD) 23.89 ?ml ? LV EDV BP ? 68.59 ?ml ? LV ESV BP ? 26.13 ?ml ? BP EF (MOD) ? 61.9 ? % ? Diastolic/Systolic Function ?Value ?Units (Range) ? MV E-wave Vmax ?0.75 ? m/sec ? MV deceleration wyvu183.71 ? msec ? MV A-wave Vmax ?0.63 ? m/sec ? MV E:A ratio ?1.19 ? ratio ? LV septal e' Vmax ?? 0.1 ?m/sec ? LV lateral e' Vmax ??0.09 ? m/sec ? LV E:e' septal ratio7.3 ?ratio ? LV E:e' lateral rati8.18 ? ratio ? Aortic Valve ?Value ?Units (Range) ? AV Vmax ? 1.7 ?m/sec ? AV VTI ?28.03 ?cm ? AV peak gradient ?11.54 ?mmHg ? AV mean gradient ?6.11 ? mmHg ? LVOT diameter ? 1.91 ? cm ? LVOT Vmax ? 1.31 ? m/sec ? LVOT VTI ?23.6 ? cm ? CO LVOT ? 6.25 ? l/min ? EMERALD (continuity Vmax2.22 ? cm2 ? EMERALD (continuity Vmax1.24 ? cm2/m2 ? EMERALD (continuity VTI)1.36 ? cm2/m2 ? Mitral Valve ?Value ?Units (Range) ? MV PHT ?53.28 ?msec ? MVA (PHT) ? 4.13 ? cm2 ? Tricuspid Valve ?Value ?Units (Range) ? TR Vmax ? 2.2 ?m/sec ? TR peak gradient ?19.36 ?mmHg ? Pulmonic Valve/Qp:Qs ?Value ?Units (Range) ? PV Vmax ? 0.99 ? m/sec ? PV VTI ?15.36 ?cm ? PV peak gradient ?3.93 ? mmHg ? PV mean gradient ?2.23 ? mmHg ? RVOT Vmax ? 0.69 ? m/sec ? RVOT VTI ?10.86 ?cm ? RVOT peak gradient ??1.92 ? mmHg ? PV acceleration time51.11 ?msec ? PV ejection time ?218.24 ? msec ? PV AT:ET ?0.23 ? ratio ? Wall Motion: Segment Name ?Rest ? Base-Anteroseptal ?? Normal ? Base-Anterior ? Normal ? Base-Anterolateral ??Normal ? Base-Posterolateral Normal ? Base-Inferior ? Normal ? Base-Inferoseptal ?? Normal ? Mid-Anteroseptal ?Normal ? Mid-Anterior ?Normal ? Mid-Anterolateral ?? Normal ? Mid-Posterolateral ??Normal ? Mid-Inferior ?Normal ? Mid-Inferoseptal ?Normal ? [place]-Septal ? Normal ? [place]-Anterior ? Normal ? [place]-Lateral ?Normal ? [place]-Inferior ? Normal ? [place]-Tip ?Normal ? This report has been electronically signed by: Jose Alberto uBrk MD ? 04/22/2019 12:34:37 Images reviewed and interpretation verified [facility] Procedure Note Jose Alberto Burk MD - 04/22/2019 Procedure: Transthoracic Echocardiogram Patient: LILIAN Philip (Age): 1945(73y) Med Rec#: [id number] Sex: F Site Loc: [facility] Ht / Wt: 167.64(cm)/69.4 Pt. Loc: BSA: 1.78 Study Date: 04/22/2019 Pt. Type: Inpatient Tape: Referring: VERITO Referring: [facility] (Diag Imaging) Referring: [facility](Med/Surg) Referring: [facility](Med Rec) Reading: Jose Alberto Burk ([id number]) Rn Iv Therapy: TRAV Rn Iv Therapy: TRAV Diagnosis: *Chest pain, unspecified (R07.9) BP: 92/52 SUMMARY: 1. Left ventricular chamber size, wall thickness, global and segmental systolic function are within normal limits. Ejection fraction is estimated to be 60%. 2. Right ventricular chamber size, wall thickness, and systolic function are within normal limits. 3. The left atrium is normal in size. 4. The cardiac valves appear structurally and functionally normal. 5. See remainder of report for additional findings. Findings : Left Ventricle: Left ventricular chamber size, wall thickness, global and segmental systolic function are within normal limits. Ejection fraction is estimated to be 60%. Left Atrium: The left atrium is normal in size. Right Ventricle: Right ventricular chamber size, wall thickness, and systolic function are within normal limits. Pulmonary artery hypertension could not be assessed due to inadequate tricuspid regurgitation jet. Right Atrium: The right atrium appears normal. Aortic Valve: The aortic valve is trileaflet. The leaflets are thin with normal excursion. There is no aortic stenosis or regurgitation present. There is no evidence of aortic valve stenosis. There is no evidence of aortic regurgitation. Mitral Valve: The mitral valve leaflets appear normal. There is trace mitral regurgitation present. Tricuspid Valve: The tricuspid valve leaflets are morphologically normal. There is trace tricuspid regurgitation present. Pulmonic Valve: The pulmonic valve is not well visualized. Pericardium: A trivial pericardial effusion is visualized. Aorta: The ascending aorta is normal in size. Pulmonary Artery: The main pulmonary artery is not well visualized. Venous: The inferior vena cava appears normal. Misc: Two-dimensional echo, spectral Doppler and color Doppler performed. Chambers 2D Value Units (Range) IVSd (2D) 0.7 cm LVPWd (2D) 0.73 cm IVS:LVPW ratio (2D) 0.96 ratio LVIDd (2D) 4.3 cm LVIDs (2D) 3.43 cm LV FS (2D) 20.17 % EF Teichholz (2D) 41.57 % Ascending Ao 3.1 cm (2 - 3.5) Volumes/Mass Value Units (Range) LA ESV BP (A/L) inde16.54 ml/m2 LV ESV SP 4CH (MOD) 27.72 ml LV ESV SP 2CH (MOD) 23.89 ml LV EDV BP 68.59 ml LV ESV BP 26.13 ml BP EF (MOD) 61.9 % Diastolic/Systolic Function Value Units (Range) MV E-wave Vmax 0.75 m/sec MV deceleration orsp526.71 msec MV A-wave Vmax 0.63 m/sec MV E:A ratio 1.19 ratio LV septal e' Vmax 0.1 m/sec LV lateral e' Vmax 0.09 m/sec LV E:e' septal ratio7.3 ratio LV E:e' lateral rati8.18 ratio Aortic Valve Value Units (Range) AV Vmax 1.7 m/sec AV VTI 28.03 cm AV peak gradient 11.54 mmHg AV mean gradient 6.11 mmHg LVOT diameter 1.91 cm LVOT Vmax 1.31 m/sec LVOT VTI 23.6 cm CO LVOT 6.25 l/min EMERALD (continuity Vmax2.22 cm2 EMERALD (continuity Vmax1.24 cm2/m2 EMERALD (continuity VTI)1.36 cm2/m2 Mitral Valve Value Units (Range) MV PHT 53.28 msec MVA (PHT) 4.13 cm2 Tricuspid Valve Value Units (Range) TR Vmax 2.2 m/sec TR peak gradient 19.36 mmHg Pulmonic Valve/Qp:Qs Value Units (Range) PV Vmax 0.99 m/sec PV VTI 15.36 cm PV peak gradient 3.93 mmHg PV mean gradient 2.23 mmHg RVOT Vmax 0.69 m/sec RVOT VTI 10.86 cm RVOT peak gradient 1.92 mmHg PV acceleration time51.11 msec PV ejection time 218.24 msec PV AT:ET 0.23 ratio Wall Motion: Segment Name Rest Base-Anteroseptal Normal Base-Anterior Normal Base-Anterolateral Normal Base-Posterolateral Normal Base-Inferior Normal Base-Inferoseptal Normal Mid-Anteroseptal Normal Mid-Anterior Normal Mid-Anterolateral Normal Mid-Posterolateral Normal Mid-Inferior Normal Mid-Inferoseptal Normal [place]-Septal Normal [place]-Anterior Normal [place]-Lateral Normal [place]-Inferior Normal [place]-Tip Normal This report has been electronically signed by: Jose Alberto Burk MD 04/22/2019 12:34:37 Images reviewed and interpretation verified [facility] Adan Jernigan MD ECHO ORDERABLES documented in this encounter Visit Diagnoses Diagnosis Chest pain, unspecified type documented in this encounter Care Teams Photographic Hand Developer Relationship Specialty Start Date End Date Shilpi Castañeda, ORDER ENTRY CLERK [address] [place] [address] PCP - General Internal Medicine 05/28/16 documented as of this encounter
--- OUTSIDE RECORDS SUMMARY | 2024-02-22 17:22 | XMS_ITS | Encounter Summary ---
Author Organization [facility] Address [address] [place] [address] Care Team Providers Care Windows Admin Name Role Phone Sabine Garcia MD Primary Care Provider [phone] Encounter Details Date Type Department Care Team (Late st Contact Info) Description 11/05/2012 Results Only [facility] [phone] Briana Mendez MD [address] [address] Social History Tobacco Use Types [...] Priority Date/Time Associated Diagnosis Comments CYTOPATHOLOGY Routine 11/05/2012 0:00 EDT documented in this encounter Results * CYTOPATHOLOGY (11/05/2012 0:00 EDT) Pathology Report: CYTOPATHOLOGY REPORT Reports generated via electronic interface contain original data; however they are lacking the format of the original report. Caution should be taken when reading/interpreti ng unformatted reports. Name: ? AMY QUINTANA ? Accession #: ? [id number] : ? 1945 (Age: 67) ??F ?Collect Date: ? 11/05/2012 Location: ? [facility] ? Receive Date: ? 11/08/2012 Provider: ? BRIANA MENDEZ MD Copy to: ?ELYSIA DUPREE MD ? CYTOLOGIC DIAGNOSIS: URINE, BLADDER WASHING, CYTOLOGIC EVALUATION: - ??Negative for malignant cells. Document reviewed and electronically signed by: ? BILL RAMOS MD Report Date: ??11/08/2012 17:28 By the signature above, the attending physician certifies that he/she has personally conducted a gross and/or microscopic examination of the described specimens and rendered or confirmed the above diagnosis. Specimen Type: ? Urine, Bladder Washing Clinical History: ? Bladder cancer ? Gross Description: ? One vial of Cytolyt (Total volume 50mls) was received and processed by selective cellular enhancement technique. ? End of Report [facility] 11/05/2012 11/08/2012 9:0 8 EDT us Briana Mendez MD PATHOLOGY ORDERABLES Final Re sult [facility] [address] [place] [address] documented in this encounter Visit Diagnoses Not on filedocumented in this encounter Care Teams Windows Admin Relationship Specialty Start Date End Date Sabine Garcia MD [address] [place] [phone] PCP - General 10/10/10 11/08/12 documented as of this encounter
--- OUTSIDE RECORDS SUMMARY | 2024-02-22 17:22 | XMS_ITS | Encounter Summary ---
Author Organization [facility] Address [address] [place] [address] Care Team Providers Care Orthophotography Technician Name Role Phone Unavailable Primary Care Provider Unavailabl e Encounter Details Date Type Department Care Team (Late st Contact Info) Description 01/15/2009 Orders Only [facility] Laboratory Services - [facility] ([facility]) [address] [place] [address] Marzena Fountain NP [address] [place] [address] Social History Tobacco Use Types [...] Procedure Name Priority Date/Time Associated Diagnosis Comments HPV DETECTION, HIGH RISK TYPES Routine 01/15/2009 11:14 EST CYTOPATHOLOGY Routine 01/15/2009 0:00 EST documented in this encounter Results * HUMAN PAPILLOMA VIRUS DNA TEST (01/15/2009 11:14 EST) Specimen Description Cervix, ThinPrep vial [facility] Result Negative for HPV types 16, 18, 31, 33, 35, 39, 45, 51, 52, 56, 58, 59, and 68. [facility] Report Status Final 01/31/2009 [facility] 01/15/2009 11:1 4 EST 01/25/2009 11:14 EST us Marzena Fountain STRIP PICKER MICROBIOLOGY - GENERAL ORDERAB LES Final Result [facility] [address] [address] * CYTOPATHOLOGY (01/15/2009 0:00 EST) Pathology Report: CYTOPATHOLOGY REPORT ? Reports generated via electronic interface contain original data; ? however they are lacking the format of the original report. ? Caution should be taken when reading/interpreti ng unformatted reports. ? Name: ? AMY QUINTANA ? Accession #: ? [id number] ? : ? 1945 (Age: 63) ??F ?Collect Date: ? 01/15/2009 ? Location: ? [facility] ? Receive Date: ? 01/17/2009 ? Provider: ?MARZENA FOUNTAIN STRIP PICKER ? Copy to: ? Specimen/Source: ?Pap Test, Cervix/Endocervix, ThinPrep Imaging System ? with manual evaluation ? Last Menstrual Period: ? n/a ? Other: ? HPVDX - HPV testing requested regardless of diagnosis on current ThinPrep Pap ?? test. ? SPECIMEN ADEQUACY ? Satisfactory for Evaluation ? - transformation zone component present ? GENERAL CATEGORIZATION ? Negative for Intraepithelial Lesion or Malignancy ? INTERPRETATION ? Reactive cellular changes associated with inflammation present (includes ?? repair). ? Document reviewed and electronically signed by: ? Luther B. Ambaye, MD ? Report Date: ??01/24/2009 15:14 ? End of Report ? [facility] 01/15/2009 01/17/2009 us Marzena Fountain NP PATHOLOGY ORDERABLES Final Res ult Performing Organization Address City/State/[facility] Co de Phone Number [facility] [address] [place] [address] documented in this encounter Visit Diagnoses Not on filedocumented in this encounter
--- OUTSIDE RECORDS SUMMARY | 2024-02-22 17:22 | XMS_ITS | Encounter Summary ---
Author Organization [facility] Address [facility] [place] [place] [address] Care Team Providers Care Nuclear Fuels Reclamation Engineer Name Role Phone Shilpi Castañeda APRN Primary Care Provider [phone] Reason for Visit * Reason Onset Date Comments Medication Refill 02/25/2022 Encounter Details Date Type Department Care Team (Late st Contact Info) Description 02/25/[address] [facility] [address] [place] [address] Jose Ramon Castillo MD [facility] [address] [place] [address] Social History Tobacco Use Types Packs/Day Years [...] encounter Miscellaneous Notes * Telephone Encounter - Lindy Grier LPN - 02/25/2022 12:46 PM EST Per Anna Puckett, order pended for ketoconazole shampoo documented in this encounter Plan of Treatment Not on file documented as of this encounter Visit Diagnoses Not on filedocumented in this encounter Care Teams Nuclear Fuels Reclamation Engineer Relationship Specialty Start Date End Date Shilpi Castañeda APRN [address] [place] [address] PCP - General Internal Medicine 05/28/16 documented as of this encounter
--- OUTSIDE RECORDS SUMMARY | 2024-02-22 17:22 | XMS_ITS | Encounter Summary ---
Author Organization [facility] [place] [address] [place] [address] Care Team Providers Care Roundsman Name Role Phone Shilpi Castañeda RESCUE WORKER Primary Care Provider [phone] Reason for Visit * Reason Comments Skin Check Encounter Details Date Type Department Care Team (Late st Contact Info) Description 02/18/2019 2:00 PM EST Office Visit Dermatology at [facility] [address] [place] [address] Manny Harrington MD [facility] [place] [address] Longitudinal erythronychia; Multiple benign nevi; Notalgia paresthetica; Fay angioma; SK (seborrheic keratosis) Social History Tobacco Use Types Packs/Day Years [...] as of this encounter Progress Notes * Manny Harrington - 02/18/2019 2:00 PM EST Images from the original note were not included. DERMATOLOGY - ESTABLISHED PATIENT FOLLOW-UP Date of service: 02/18/2019 Reva Quintana : 1945, 73 y.o. Chief Complaint: Chief Complaint Patient presents with ??? Skin Check HPI: Reva Quintana is a 73 y.o. female last seen by myself on 07/13/2018. Ms. Quintana returns today for a full skin check, and a check of her left great toe nail, where she hada Longitudinal eyrthronychia. Her only area of concern is on her back. She is very itchy. Relevant Skin History: - Okay to leave detailed message with results? - Skin cancer (including type): no ? Family History: Melanoma: no ?? Relevant Social History: - Medications: Current Outpatient Medications Medication Sig Dispense Refill ??? VIT C/E/ZN/COPPR/LUTEIN/ZEAXAN (PRESERVISION AREDS 2 ORAL) Take by mouth. ??? metFORMIN (GLUCOPHAGE) 500 mg Tablet Take 500 mg by mouth 2 times daily (with meals). ??? CHROMIUM-GTF ORAL Take 250 mg by mouth 2 times daily. ??? magnesium citrate Solution Take 200 mLs by mouth. ??? glucosamine sulfate 500 mg Tablet Take 1,500 mg by mouth. ??? Cod Liver Oil Capsule Take by mouth. ??? ACETYLCARNITINE HCL (ACETYL L-CARNITINE ORAL) Take 500 mg by mouth. ??? ASCORBATE CALCIUM (AMANDA-C ORAL) Take 500 mg by mouth. ??? AGAR MISC by Misc.(Non-Drug; Combo Route) route. ??? LORazepam (ATIVAN) 0.5 mg Tablet Take 0.5 mg by mouth as needed for Anxiety. ??? Magnesium 250 mg Tablet Take 250 mg by mouth. ??? VIT B COMP/E AC SUCC/FA/HC 105 (ESTRO VITAL NUTRIENTS ORAL) Take by mouth. ??? estradiol (VAGIFEM) [address] 20 mcg vaginally twice a week. Take two tablets twice aweek ??? acyclovir (ZOVIRAX) 200 mg capsule Take 800 mg by mouth 2 times daily. Reported on 07/15/2016 ??? aspirin 81 mg EC tablet Take 81 mg by mouth daily. Reported on 07/15/2016 ??? Lysine 500 mg Tab Take by mouth 2 times daily. ??? S-Adenosylmethionine (CHA-E, ENTERIC COATED,) 400 mg TbEC Take by mouth. ??? CIS Free Text Med - metformin ER 500mg 2 tablets PO Twice daily ??? VALERIAN ROOT ORAL No current facility-administered medications for this visit. Allergies: Allergies Allergen Reactions ??? Lactose CIS - diarrhea, stomach pain, flatulance ??? 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 - Skin: No other skin concerns. Examination: - Constitutional: Patient was alert, well-appearing and in no noticeable distress. - Skin: Skin examination of the scalp, face, ears, neck, back, chest, abdomen, right and left upperextremities, right and left lower extremities, hands, feet, and buttocks was normal with the exception of the findings listed below. Genitalia not examined. - A female nurse was present and on standby during my examination. 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 Subungual wart - Will continue to monitor . 2. Benign Appearing Nevi: multiple, 0.3-0.5cm, medium-brown, evenly-pigmented macules and papules. 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 Discussed nature of the lesion. - Pt reassured. Benign, no treatment necessary. 4. Fay Angiomas- Multiple 0.2-0.4cm bright red, well-demarcated papules on the abdomen and back - Reassured of benign nature 5. Notalgia Paresthetica - In medial scapular area where patient describes intense itch there is norash or other skin findings to account for symptoms. Discussed diagnosis and possible relationship to irritated/inflamed nerve causing itching sensation - Rx: Sarna BID-QID to affected areas - Rx: Capsicin topical cream fives times daily x 2 weeks. RTC: In 1 year for full skin check,or sooner if needed. Note initiated by AMBER BRITO LPN. I, AMBER BRITO LPN, have performed the documentation for this encounter in the presence of and acting as a scribe for Manny Harrington MD. I performed the services which were documented by the scribe, and I agree with the accuracy of the documentation in this encounter. Manny Harrington MD Reviewed and signed by: Manny Harrington MD Resident in Dermatology [facility] Patient discussed with staff global human resources director: Carlo Wayne MD Section of Dermatology [facility] * Roge Wayne MD - 02/18/2019 2:00 PM EST I was the supervising physician working with dermatology resident Dr. Harrington in the dermatology clinic during this patient visit. The level of Resident supervision for this patient visit was indirect supervision with direct supervision immediately available. (definition: [facility] Policy Statement on raduate Medical Education, Supervision of Graduate Medical Trainees) I was immediately available toDr. Harrington for questions and discussion regarding this visit. I have reviewed his encounter note details and level of service. ROGE WAYNE MD Staff Physician documented in this encounter Plan of Treatment Not on file documented as of this encounter Visit Diagnoses Diagnosis Longitudinal erythronychia Multiple benign nevi Benign neoplasm of skin, site unspecified Notalgia paresthetica Disturbance of skin sensation Fay angioma Nevus, non-neoplastic SK (seborrheic keratosis) Other seborrheic keratosis documented in this encounter Care Teams Roundsman Relationship Specialty Start Date End Date Shilpi Castañeda APRN [address] [place] [address] PCP - General Internal Medicine 05/28/16 documented as of this encounter
--- OUTSIDE RECORDS SUMMARY | 2024-02-22 17:22 | XMS_ITS | Encounter Summary ---
Author Organization [facility] Address [facility] [place] [address] Care Team Providers Care Melter Supervisor Oxygen Furnace Name Role Phone Shilpi Castañeda APRN Primary Care Provider [phone] Reason for Visit * Reason Comments Skin Lesion * Consultation (Routine) - Closed Specialty Diagnoses / Procedures Referred By Contac t Referred To Contact Dermatology Diagnoses Disorder of pigmentation, unspecified Other nail disorders PIGMENT CHANGE UNDER LEFT GREAT TOENAIL PLATE, POSSIBILITY OF MELANOMA Shilpi Castañeda, PEN OR PENCIL ASSEMBLY MACHINE OPERATOR [address] [place] [address] [facility] Dermatology [address] [place] [address] Referral ID Status Reason Start Date Expiration Date V isits Requested Visits Authorized [id number] Closed Consult, [facility] 06/08/2018 06/08/2019 1 1 Encounter Details Date Type Department Care Team (Latest Contact Info) Description 07/13/2018 8:30 AM EDT Office Visit Dermatology at [facility] [address] [place] [address] Call, Manny Acevedo MD [facility] [address] [place] [address] Longitudinal erythronychia Social History Tobacco Use Types Packs/Day Years [...] encounter Progress Notes * Manny Harrington - 07/13/2018 8:30 AM EDT Images from the original note were not included. DERMATOLOGY - NEW PATIENT NOTE Date of service: 07/13/2018 Reva Quintana : 1945, 73 y.o. Chief Complaint: Chief Complaint Patient presents with ??? Skin Lesion HPI: Reva Quintana is a 73 y.o. female referred by Shilpi Castañeda with the following concerns: Pt noticed red line on her left great toe nail about several years ago. was seen by farm service adviser, concerning and discussed nail biopsy. She denies any recent growth, tenderness, bleeding, change in color, no other nails with similar changes Relevant Skin History: - Okay to leave detailed message with results? - Skin cancer (including type): no Family History: Melanoma: no Relevant Social History: - Meds: Current Outpatient Medications Medication Sig Dispense Refill [...] distress. - Skin: Skin examination of the toenails - A female nurse was present and on standby during my examination. Diagnosis/Skin findings/Assessment/Plan: 1. Longitudinal eyrthronychia : Left great toe nail: 1 mm wide pink longitudinal band along the lateral nail plate, slight thickening of the hyponychium and v shaped nicking at the distal nail plate.Appears benign today, favor onychopapilloma - Will monitor and have patient return in 6 months of follow up. RTC: 6 months for follow up The following photos were obtained with patient consent: Note initiated by AMBER BRITO LPN. I, AMBER BRITO LPN, have performed the documentation for this encounter in the presence of and acting as a scribe for Manny Harrington MD. I performed the services which were documented by the scribe, and I agree with the accuracy of the documentation in this encounter. Manny Harrington MD Reviewed and signed by Manny Harrington MD Resident in Dermatology [facility] Patient seen in conjunction with staff vocational psychologist: Vega Rivero MD Section of Dermatology [facility] * Vega Rivero MD - 07/13/2018 8:30 AM EDT I directly supervised Dr. Manny Harrington during this office visit. Dr. Harrington presented the history and physical exam to me. I then saw and examined this patient with Dr. Harrington. We reviewed the history and pertinent details and I confirmed the physical findings. I agree with the details of the history and physical exam as documented in Dr. Harrington's note. ?? VEGA RIVERO MD Staff Physician documented in this encounter Plan of Treatment Not on file documented as of this encounter Visit Diagnoses Diagnosis Longitudinal erythronychia documented in this encounter Care Teams Melter Supervisor Oxygen Furnace Relationship Specialty Start Date End Date Shilpi Castañeda, PEN OR PENCIL ASSEMBLY MACHINE OPERATOR [address] [facility] [place] [address] PCP - General Internal Medicine 05/28/16 documented as of this encounter
--- OUTSIDE RECORDS SUMMARY | 2024-02-22 17:22 | XMS_ITS | Encounter Summary ---
Author Organization [facility] [place] [place] [address] Care Team Providers Care Press Operator Carbon Products Name Role Phone Shilpi Castañeda APRN Primary Care Provider [phone] Encounter Details Date Type Department Care Team (Late st Contact Info) Description 09/23/2022 2:15 PM EDT Office Visit Dermatology at [facility] [address] [place] [address] Jose Ramon Castillo MD [facility] [address] [place] [address] Seborrheic keratosis; Fay angioma; Multiple benign nevi of upper extremity, lower extremity, and trunk; Lentigines; Seborrheic dermatitis Social History Tobacco Use Types Packs/Day Years [...] of this encounter Progress Notes * César Gallegos, [facility] - 09/23/2022 2:15 PM EDT Images from the original note were not included. DEPARTMENT OF DERMATOLOGY Medical Dermatology Clinic Provider: Jose Ramon Castillo MD Patient's preferred name Reva Preferred contact method for results []myDH []Letter [x]Phone: home Detailed phone message OK? Yes Are there any other people with whom we may discuss your care? N/A PAST MEDICAL HISTORY If no, type N. If yes, type date, location, treatment Melanoma No Dysplastic nevi No SCC No BCC No AKs No UV Exposure & Protection + history of blistering sunburn Sun protection: long sleeves, hats Other relevant past medical history (i.e. 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 Patient returns to clinic today for a 1 yearFSE. Previous [facility] patient. In early February 2022, patient started Rx: ketoconazole shampoo for seborrheic dermatitis. Patient reports: - She states that the ketoconazole shampoo worked very well for her seborrheic dermatitis - Patient denies any specific skin concerns today; no lesions that are new, changing or symptomatic. Last visit at Dermatology: 09/19/2021 Last visit with this provider: 09/19/2021 Medications: Reviewed in eD-H Allergies: Reviewed in eD-H Skin Examination: Full skin examination: Patient asked to undress to their comfort level. Verbalized that the provider???s preference is that the patient remove all clothing and that the provider will not examine areas patient elects to keep covered. Patient elects to keep underwear on and have the following examined: scalp, hair, face, ears, neck, chest, axillae, abdomen, back, and upper and lower extremities. Genitalia and buttocks were not examined. Assessment/Plan: #. Seborrheic Dermatitis - Yellowish, greasy scale overlying erythematous patches on the scalp. - Discussed etiology and treatment options. - Continue and refill Rx: Ketoconazole 2% Shampoo to scalp and face, lather in the shower and leaveon for 5 minutes, then rinse. Repeat daily for two weeks then decrease to 3 x weekly for maintenance. #. Benign Nevi - Scattered medium brown, evenly pigmented macules and papules on the trunk and extremities with reassuring pigment pattern on dermoscopy. - Discussed benign nature of lesions and provided reassurance. Will continue to monitor. #. Seborrheic Keratoses - Stuck on, waxy [...] lesions and provided reassurance. Willcontinue to monitor. RTC: 1 year for FSE []Note routed to nursing secretary [x]Recall placed in scheduling system []Appointment scheduled at checkout Scribe attestation: SRIRAM Sanchez has performed the documentation for this encounter in thepresence of and acting as a scribe for Jose Ramon Castillo MD. I performed the above scribed service and agree with the accuracy of the documentation in this encounter. Reviewed and signed by: Jose Ramon Castillo MD Dermatology [facility] documented in this encounter Plan of Treatment Not on file documented as of this encounter Visit Diagnoses Diagnosis Seborrheic keratosis Other seborrheic keratosis Fay angioma Nevus, non-neoplastic Multiple benign nevi of upper extremity, lower extremity, and trunk Lentigines Other dyschromia Seborrheic dermatitis Seborrheic dermatitis, unspecified documented in this encounter Care Teams Press Operator Carbon Products Relationship Specialty Start Date End Date Shilpi Castañeda APRN [address] [place] [address] PCP - General Internal Medicine 05/28/16 documented as of this encounter
--- OUTSIDE RECORDS SUMMARY | 2024-02-22 17:22 | XMS_ITS | Encounter Summary ---
[place] [address] Care Team Providers Care Agency Manager Name Role Phone Shilpi Castañeda APRN Primary Care Provider [phone] Encounter Details Date Type Department Care Team (Latest Contact Info) Description 09/23/2022 Travel Social History Tobacco Use Types Packs/Day [...] on filedocumented in this encounter Care Teams Agency Manager Relationship Specialty Start Date End Date Shilpi Castañeda APRN [address] [place] [address] PCP - General Internal Medicine 05/28/16 documented as of this encounter
--- OUTSIDE RECORDS SUMMARY | 2024-02-22 17:22 | XMS_ITS | Encounter Summary ---
Author Organization [facility] [place] [address] Care Team Providers Care Sample Tailor Name Role Phone Shilpi Castañeda DEEDEE Primary Care Provider [phone] Encounter Details Date Type Department Care Team (Late st Contact Info) Description 12/03/2023 2:15 PM EDT Office Visit Dermatology at [facility] [address] [place] [address] Jose Ramon Castillo MD [facility] [address]UTH[address] [place] [address] Skin cancer screening; Sebopsoriasis; SK (seborrheic keratosis); Multiple benign nevi; Lentigines; Fay angioma Social History Tobacco Use Types Packs/Day Years [...] as of this encounter Progress Notes * Leighann Patterson CCMA - 12/03/2023 2:15 PM EDT Images from the original [...] relevant family history No SOCIAL HISTORY 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 Patient returns to clinic today for a full skin exam. Patient reports no new bleeding, changing, nonhealing, or painful lesions on exam. Last visit at Dermatology: 09/23/2022 Last visit with this provider: 09/23/2022 Medications: Reviewed in eD-H Allergies: Reviewed in [...] extremities. Genitalia and buttocks were not examined. Assessment/Plan #. Sebopsoriasis of Scalp - Discussed with patient that sebopsoriasis is an overlap between psoriasis and seborrheic dermatitis. There tends to be less silvery, thick scale than in psoriasis and more yellowish, greasy scale. It tends to have a deeper red colour, more defined margins and a thicker scale than typically seen in seborrheic dermatitis alone. It is also less likely to clear with anti-dandruff shampoo alone. - Explained that sebopsoriasis tends to localize to the scalp (sometimes face and chest) Prescriptions: - Continue and refill Rx: Ketoconazole 2% Shampoo. Apply topically to the scalp and face, lather inthe shower and leave on for 5 minutes, then rinse. Repeat daily for two weeks then decrease to 3 x weekly for maintenance. - Recommended Rx: Fluocinolone 0.01% oil. Apply topically to the affected areas on the scalp daily for two weeks when flaring. #. Seborrheic Keratoses - Stuck on, waxy papules on the trunk and extremities. - Discussed benign nature of lesions and provided reassurance. No treatment necessary at this time. #. Benign Nevi - Scattered medium brown, evenly pigmented macules and papules on the trunk and extremities with reassuring pigment pattern on dermoscopy. - Discussed benign nature of lesions and provided reassurance. Will continue to monitor. #. Lentigines - Scattered light-brown, evenly pigmented, well-demarcated macules on sun-exposed areas of the trunk and extremities. - No worrisome pigmented lesions. Discussed benign nature of lesions and provided reassurance. Willcontinue to monitor. #. Fay Angiomas - Multiple bright red, well-demarcated papules on the trunk and extremities. - Discussed benign nature of lesions and provided reassurance. No treatment necessary at this time. Other: Sun protection discussed (protective clothing and SPF30+ broad-spectrum sunscreen) RTC: 2 years for FSE []Note routed to secretary office clerk [x]Recall placed in scheduling system []Appointment scheduled at checkout Scribe attestation: SRIRAM Gilbert has performed the documentation for this encounter in the presence of and acting as a scribe for Jose Ramon Castillo MD. I performed the above scribed service and agree with the accuracy of the documentation in this encounter. Reviewed and signed by: Jose Ramon Castillo MD Dermatology [facility] documented in this encounter Plan of Treatment Not on file documented as of this encounter Visit Diagnoses Diagnosis Skin cancer screening Screening for malignant neoplasm of the skin Sebopsoriasis Contact dermatitis and other eczema, due to unspecified cause SK (seborrheic keratosis) Other seborrheic keratosis Multiple benign nevi Benign neoplasm of skin, site unspecified Lentigines Other dyschromia Fay angioma Nevus, non-neoplastic documented in this encounter Care Teams Sample Tailor Relationship Specialty Start Date End Date Shilpi Castañeda, DEEDEE [address] [place] [address] PCP - General Internal Medicine 05/28/16 documented as of this encounter
--- OUTSIDE RECORDS SUMMARY | 2024-02-22 17:22 | XMS_ITS | Encounter Summary ---
Author Organization [facility] [place] [address] Care Team Providers Care Supervisor Electronic Testing Name Role Phone Shilpi Castañeda APRN Primary Care Provider [phone] Reason for Visit * Reason Comments Blurred Vision * Consultation (Routine) - Closed Specialty Diagnoses / Procedures Referred By Contfabián t Referred To Contact Ophthalmology Diagnoses Type 2 diabetes mellitus without complications Unspecified macular degeneration Shilpi Castañeda APRN [address] [place] [address] Radha Moncada, MILI [facility] [address] [place] [address] Referral ID Status Reason Start Date Expiration Date V isits Requested Visits Authorized [id number] Closed Consult, Test & Treat Connection Center PCP Updated and/or Approved 06/12/2020 06/12/2021 6 6 Encounter Details Date Type Department Care Team (Late st Contact Info) Description 10/18/2020 9:00 AM EDT [place] [address] Radha Moncada OD [facility] [address] [place] [address] Diabetic eye exam; Combined forms of age-related cataract of both eyes; Macular degeneration, age related; Choroidal nevus of left eye; Astigmatism of both eyes with presbyopia Social History Tobacco Use Types Packs/Day Years [...] this encounter Patient Instructions * Patient Instructions* Radha Moncada, MILI - 10/18/2020 9:00 AM EDT Images from the original note were not included. Amsler Grid The Amsler grid may be helpful in revealing signs of sudden vision changes. It is not a substitute for regularly scheduled eye exam/tests. Amsler grid directions: 1. Do not remove glasses or contact lenses you normally wear for reading. 2. Stand approximately 13 inches (33 cm) from the grid in a well-lighted room. 3. Cover one eye with your hand and focus on the center dot with your uncovered eye. Repeat with other eye. If you see wavy, broken or distorted lines, or blurred or missing areas of vision, you may be displaying symptoms of vision changes and should contact your eye care provider immediately. documented in this encounter Progress Notes * Radha Moncada, OD - 10/18/2020 9:00 AM EDT Encounter Diagnoses Name Primary? Diabetic eye exam ??? Combined forms of age-related cataract of both eyes ??? Macular degeneration, age related ??? Astigmatism of both eyes with presbyopia Reva Quintana is a 75 y.o. with the following ophthalmic problems: Assessment and Plan: Mild AMD, non-exudative OU with + family hx in mother (who could still see at age 100). Stable - Discussed AMD at length. Taking AREDS vitamins is optional for her, as her drusen are so minor. Amsler grid given. Advise yearly retinal examination. DM II, No retinopathy OU, No DME OU - Advised BG control with diet, exercise, & meds per PCP recommendations. 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 Cataracts OU - Monitor for now, sooner with changes in vision. Refractive Error OU - Rx given today - Findings and concerns discussed with Reva and she expressed understanding. 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
--- OUTSIDE RECORDS SUMMARY | 2024-02-22 17:22 | XMS_ITS | Encounter Summary ---
Author Organization [facility] Address [facility] [place] [address] Care Team Providers Care Leather Goods Sales Representative Name Role Phone Shilpi Castañeda APRN Primary Care Provider [phone] Reason for Referral * Consultation (Routine) - Closed Specialty Diagnoses / Procedures Referred By Anil more Referred To Contact Dermatology Diagnoses Pruritus Shilpi Castañeda APRN [address] [place] [address] [facility] [address] [place] [address] Referral ID Status Reason Start Date Expiration Date V isits Requested Visits Authorized [id number] Closed Consult, Test & Treat PCP Updated and/or Approved 06/04/2021 06/04/2022 6 6 Encounter Details Date Type Department Care Team (Late st Contact Info) Description 06/04/2021 Transcribe Orders eDH Incoming Referrals [phone] Shilpi Castañeda INFORMATION SYSTEMS SUPERVISOR [address] [place], [place] [id number] Pruritus Social History Tobacco Use Types Packs/Day Years [...] as of this encounter Plan of Treatment Scheduled Referrals Name Type Priority Associated Diagnoses Order Schedule Referral to Dermatology Outpatient Referral Routine Pruritus Ordered: 06/04/2021 documented as of this encounter Visit Diagnoses Diagnosis Pruritus Unspecified pruritic disorder documented in this encounter Care Teams Leather Goods Sales Representative Relationship Specialty Start Date End Date Shilpi Castañeda APRN [address] [place] [address] PCP - General Internal Medicine 05/28/16 documented as of this encounter
--- OUTSIDE RECORDS SUMMARY | 2024-02-22 17:22 | XMS_ITS | Encounter Summary ---
Author Organization [facility] Address [facility] [place] [address] Care Team Providers Care Bleach Chlorinator Name Role Phone Hanna Castañedayce Ryan MARK Primary Care Provider [phone] Encounter Details Date Type Department Care Team (Latest Contact Info) Description 06/02/2017 - 06/02/2017 11:59 PM EDT Hospital Encounter Radiology Library at [facility] [place] [id number] Ana Curiel MD Discharge Disposition: Home Social [...] Associated Diagnosis Comments FILM LIBRARY STORAGE ONLY MR HEAD Routine 06/02/2017 12:00 AM EDT documented in this encounter Results * Film Library- Storage Only MR Head (06/02/2017 12:00 AM EDT) Narrative [facility] - 07/15/2017 3:58 PM EDT This exam is for storage only and is auto-finalizing. Ana Curiel MD IMG FILM LIBRARY O RDERABLES [place], [place] documented in this encounter Visit Diagnoses Not on filedocumented in this encounter Care Teams Bleach Chlorinator Relationship Specialty Start Date End Date Shilpi Castañeda APRN [address] [place] [address] PCP - General Internal Medicine 05/28/16 documented as of this encounter
--- OUTSIDE RECORDS SUMMARY | 2024-02-22 17:22 | XMS_ITS | Encounter Summary ---
Author Organization [facility] Address [address] [place] [address] Care Team Providers Care Tissue Packer Name Role Phone Martha Conner MD Primary Care Provider [phone] Encounter Details Date Type Department Care Team (Late st Contact Info) Description 10/08/2010 Results Only [facility] [phone] Briana Tomlin MD [address] [address] Social History Tobacco Use Types [...] Date/Time Associated Diagnosis Comments SURGICAL PATHOLOGY Routine 10/08/2010 0:00 EDT documented in this encounter Results * SURGICAL PATHOLOGY (10/08/2010 0:00 EDT) Pathology Report: SURGICAL PATHOLOGY REPORT ? Reports generated via electronic interface contain original data; ? however they are lacking the format of the original report. ? Caution should be taken when reading/interpreti ng unformatted reports. ? Name: ? TACKHOWE, AMY L ? Accession #: ? [id number] ? : ? 1945 (Age: 65) ??F ? Collect Date: ? 10/08/2010 ? Location: ? [facility] ? Receive Date: ? 10/08/2010 ? Provider: BRIANA NISBET MD ? Copy to: AMINA SHERWOOD MD ? Final Pathologic Diagnosis: ? A. ?Bladder, tumor, curettage: ? 1. ?Non-invasive papillary urothelial carcinoma, high grade. ?- Superficially invades the lamina propria. ? 2. ?Muscularis propria is absent. ? 3. ? Lymphovascular invasion is absent. ? 4. ? Non-neoplastic tissue not present for evaluation of ??associated in-situ ?? lesion. ? B. ?Bladder, deep margin, tumor, excision: ? 1. ?Mainly submucosa with moderate chronic inflammation and devoid of ?? urothelium. ? 2. ? Negative for malignancy. ? 3. ? Muscularis propria absent. ? Comment: ? Orientor sections of this case have been reviewed at ? intradepartmental consultation conference. ? Document reviewed and electronically signed by: ? ISABELLE S GENEVA MD ? Report ??Date: 10/10/2010 16:19 ? By the signature above, the attending physician certifies that he/she has ? personally conducted a gross and/or microscopic examination of the described ? specimens and rendered or confirmed the above diagnosis. ? Specimen(s) Received: ? A. ?Bladder tumor ? B. ? Deep margin bladder tumor ? Clinical History: ? Bladder tumor ? Gross Description: ? Received in formalin labelled Amy Diez and #1 bladder tumor is a 5.5 x 4.0 x 1.0 cm aggregate of multiple stout to stout-white, soft and firm ? fragments of tissue admixed with a 1.2 x 0.8 x 0.5 cm fragment of dark red blood clot. ??The specimen is submitted entirely as (A1) through (A9). ? Received in formalin labelled TackHowe, Amy and #2 deep margin bladder ? tumor is a 0.8 x 0.5 x 0.3 cm firm, stout, focally light brown piece of tissue. ?? The specimen is submitted intact as (B). ??(Edmond Felipe)/ljn ? End of Report ? [facility] 10/08/2010 10/08/2010 20: 42 EDT us Briana Tomlin MD PATHOLOGY ORDERABLES Final Re sult [facility] [address] [place] [address] documented in this encounter Visit Diagnoses Not on filedocumented in this encounter Care Teams Tissue Packer Relationship Specialty Start Date End Date Martha Conner MD [place] Location [address] [place] [address] PCP - General 10/04/10 10/09/10 documented as of this encounter
--- OUTSIDE RECORDS SUMMARY | 2024-02-22 17:22 | XMS_ITS | Clinical Summary ---
Author Organization [facility] Address [address] [place] [address] Care Team Providers Care Olive Pitter Name Role Phone Rylee Marlow MD Primary Care Provider [phone] Social History Tobacco Use Types Packs/Day Years Used Date Smoking Tobacco: Never Assessed Comments Unknown Sex and Gender Information Value Date Recorded Sex Assigned at Not on file Legal Sex Female 18:41 EST Gender Identity Not on file Sexual Orientation Not on file Plan of Treatment Health Maintenance Due Date Last Done Comments Hepatitis C Screen 1945 Fall Risk Screening 2009 RSV Immunization ( o r 60+ Years) (1 - 1-dose 75+ series) 06/23/2019 COVID-19 Vaccine ( season) 2023 Care Teams Olive Pitter Relationship Specialty Start Date End Date Rylee Marlow MD [address] [place] [address] PCP - General 11/09/12
--- OUTSIDE RECORDS SUMMARY | 2024-02-22 17:22 | XMS_ITS | Encounter Summary ---
Author Organization [facility] Address [address] [place] [address] Care Team Providers Care Log Processor Operator Name Role Phone Unavailable Primary Care Provider Unavailabl e Encounter Details Date Type Department Care Team (Late st Contact Info) Description 10/02/2010 Results Only [facility] [phone] Briana Mendez MD [address] [facility] [address] [place] [address] Social History Tobacco Use Types Packs/Day [...] Priority Date/Time Associated Diagnosis Comments CYTOPATHOLOGY Routine 10/02/2010 0:00 EDT documented in this encounter Results * CYTOPATHOLOGY (10/02/2010 0:00 EDT) Pathology Report: CYTOPATHOLOGY REPORT ? Reports generated via electronic interface contain original data; ? however they are lacking the format of the original report. ? Caution should be taken when reading/interpreti ng unformatted reports. ? Name: ? AMY QUINTANA ? Accession #: ? [id number] ? : ? 1945 (Age: 65) ??F ?Collect Date: ? 10/02/2010 ? Location: ? [facility] ? Receive Date: ? 10/03/2010 ? Provider: ? BRIANA MENDEZ MD ? Copy to: ?AMINA KAELA MD ? CYTOLOGIC DIAGNOSIS: ? Urine, voided, cytological evaluation: ? - Malignant cells , consistent with urothelial carcinoma. ??See comment. ? COMMENT: ? There are multiple urothelial clusters which are abnormal in a voided urine specimen. ??Within these clusters the cells demonstrate nuclear abnormalities, ?? including hyperchromasia and nuclear outline irregularity. ??Further evaluation ?? required, as clinically indicated. ??(Dr. Nelson)/kmm ? Document reviewed and electronically signed by: ? [facility] ? Report Date: ??10/03/2010 16:47 ? By the signature above, the attending physician certifies that he/she has ? personally conducted a gross and/or microscopic examination of the described ? specimens and rendered or confirmed the above diagnosis. ? Specimen Type: ? Urine, Voided ? Clinical History: ? Hematuria ? Gross Description: ? 30 cc' s of light yellow fluid plus one vial of CytoLyt were received and ? processed by selective cellular enhancement technique. ? End of Report ? [facility] 10/02/2010 10/03/2010 9:4 4 EDT us Briana Mendez MD PATHOLOGY ORDERABLES Final Re sult [facility] [address] [place] [address] documented in this encounter Visit Diagnoses Not on filedocumented in this encounter
--- OUTSIDE RECORDS SUMMARY | 2024-02-22 17:22 | XMS_ITS | Encounter Summary ---
Author Organization [facility] [place] [address] Care Team Providers Care Route Jumper Name Role Phone Kassi Richard MD Primary Care Provider Reason for Visit * Reason Comments Hematuria Encounter Details Date Type Department Care Team (Late st Contact Info) Description 07/14/2014 1:40 PM EDT [place] [id number] Carrie Brown MD [facility] [place] [address] Malignant neoplasm of posterior wall of urinary bladder Discharge Disposition: Home Social History Tobacco Use Types Packs/Day Years Used Date Smoking Tobacco: Former Sex and Gender Information Value Date Recorded Sex Assigned at Not on file Gender Identity Not on file Sexual Orientation Not on file documented as of this encounter Last Filed Vital Signs Vital Sign Reading Time Taken Comments Blood Pressure 124/71 07/14/2014 1:16 PM EDT Pulse 61 07/14/2014 1:16 PM EDT Temperature 36.3 ??C (97.3 ??F) 07/14/2014 1:16 PM ED T Respiratory Rate 18 07/14/2014 1:16 PM EDT Oxygen Saturation 100% 07/14/2014 1:16 PM EDT Inhaled Oxygen Concentration - - Weight 68.5 kg (151 lb) 07/14/2014 1:16 PM EDT Height 170.2 cm (5' 7) 07/14/2014 1:16 PM EDT Body Mass Index 23.65 07/14/2014 1:16 PM EDT documented in this encounter Progress Notes * Carrie Brown MD - 07/14/2014 2:06 PM EDT Urologic Outpatient Consult Note HPI: Reva Quintana is a 69 y.o. year old male referred by Kassi Beltre for evaluation of microhematuria and a history of bladder cancer. Patient reports an approximately September 2010 she was diagnosed with superficial high-grade transitional cell carcinoma and underwent resection followed by BCG instillations for approximately 2 years.She underwent surveillance cystoscopies until October 2013. She reports she had no recurrences inthat timeframe. She presents today for follow-up and also a history of urinary tract infection with persistent microhematuria. She denies any urgency frequency burning or gross hematuria. 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 Healthy appearance. Color normal. No significant skin lesions. Head: normocephalic and atraumatic Lymph: No cervical, supraclavicular or inguinal lymphadenopathy Chest symmetric with equal excursion Heart is regular rate and rhythm Abdomen: benign without masses, rebound, guarding, or tenderness. No hepatosplenogmegaly. No CVA tenderness. : Normal external genitalia normal urethra meatus normal introitus no evidence of cystocele rectocele urethral diverticulum Extremities are without clubbing cyanosis or edema Cystoscopy done today is normal no evidence of recurrent tumor Impression/plan: History of transitional cell carcinoma of bladder no evidence of recurrence. Recommend a follow-up cystoscopy in 6 months or sooner as needed we'll also obtain records to see what the primary tumor and treatment was and entailed. Carrie Brown MD documented in this encounter Plan of Treatment Not on file documented as of this encounter Visit Diagnoses Diagnosis Malignant neoplasm of posterior wall of urinary bladder documented in this encounter Care Teams Route Jumper Relationship Specialty Start Date End Date Kassi Richard MD [address] [place] [address] PCP - General 07/14/14 05/27/16 documented as of this encounter
--- OUTSIDE RECORDS SUMMARY | 2024-02-22 17:22 | XMS_ITS | Encounter Summary ---
Author Organization [facility] [place] [address] Care Team Providers Care Lead Painter Name Role Phone Sabine Garcia MD Primary Care Provider [phone] Reason for Visit * Reason Comments Diabetes Mellitus Encounter Details Date Type Department Care Team (Latest Contact Info) Description 03/17/2012 11:30 AM EST Office [place] [address] Palomo Ingram MD [facility] [place] [address] DM w/o complication type II; Primary hypothyroidism Discharge Disposition: Home Social History Tobacco Use Types Packs/Day Years Used Date Smoking Tobacco: Former Sex and Gender Information Value Date Recorded Sex Assigned at Not on file Gender Identity Not on file Sexual Orientation Not on file documented as of this encounter Last Filed Vital Signs Vital Sign Reading Time Taken Comments Blood Pressure 130/70 03/17/2012 11:29 AM EST Pulse 62 03/17/2012 11:29 AM EST Temperature - - Respiratory Rate - - Oxygen Saturation - - Inhaled Oxygen Concentration - - Weight 65.9 kg (145 lb 3.2 oz) 03/17/2012 11:29 AM EST Height 168.9 cm (5' 6.5) 03/17/2012 11:29 AM ES T Body Mass Index 23.08 03/17/2012 11:29 AM EST documented in this encounter Progress Notes * Palomo Ingram MD - 03/17/2012 11:47 AM EST We are consulted by Dr Garcia to evaluate and treat DM2 and thyroid issues Ms Quintana was seen regularly by me for several years but has been following up with her PCP for the past 2 years. Bladder cancer treated by [facility] in the past year. Last Spring she was attending a meeting and met a whip operator who suggested to her that she might benefit from a gluten free diet. Last July she stopped using her Estrogen ring because she felt she was overmedicated. She then started a gluten free diet in August and developed hypoglycemia issues, and started to stop medications. Stopped her diabetes meds and felt much better Also stopped having problems with GERD, stoppe dprilosec, decided to stop her antidepressant and thyroid hormone Recent TSH (December) off thyroid 1.78, HA1c 6.2, LFT's in normal limits Stopped paxil, now using POTC called SamE and an herbal antianxiety med and sees an supervisor type bar and segment Lost 30 lbs Hopes to lose 10 more Is having problems sleeping and mood swings Is worried about liver (but LFT's are normal) Regimen Oral none hbgm rare Hypo none Diet B Steak Tomatoes Onions Sn L Curried vegetables and chicken Sn D Baked fish Rice sauserkraut Sn Exercise Walking and swimming complications eyes none feet none kidneys none autonomic: No gastroparesis bladder incontinence hypo unaware tachycardia cardiac no chest pain on exertion shortness of breath on 1 flight of stairs history of stent cabg chf prevention: last eye exam: 2 years last microalbumin : ? last Cr: Dec 2011 - normal last lipid panel: Dec 2011 LDL 78 regular certified coder: has seen one in the past for bunions special shoes: no flu shot : yes pneumovax: yes acei no Asa no statin no ROS - + occ crying spells But no anhedonia, no GI changes, no early am awakening - joint pains - chest pain or chest pressure with exertion - heartburn, constipation cold intolerance - dental problems Vitals 03/17/2012 SYSTOLIC 130 DIASTOLIC 70 PULSE 62 HEIGHT 67 in WEIGHT 145 lbs 3 oz BODY MASS INDEX 23.09 kg/m2 Has lost 31 lbs in 2 years Appearance: looks well, energetic, upbeat affect eyes: no retinopathy seen by green light Lungs clear at bases Carotids are silent Heart - no obvious murmur ext: no pitting edema feet: shape is abnormal- bunions bilatreally at 1st MTP's, not irritated skin is normal nails are not mycotic pulses in feet : dorsalis pedis-yes posterior tibial-yes neuro: gait is normal appreciation of 10 g of pressure is present Prior labs as above Recent Results (from the past 24 hour(s)) TSH Component Value Range TSH 2.49 0.27 - 4.20 (mcIU/mL) HEMOGLOBIN A1C Component Value Range Hemoglobin A1C 6.1 4.3 - 6.1 (%) Est Avg Gluc 128 LDL CHOLESTEROL, DIRECT Component Value Range LDL Chol Direct 113 (*) <=99 (mg/dL) T4, FREE Component Value Range Free T4 1.03 0.90 - 1.60 (ng/dL) 1) DM2 - Ms Lilian gong has Type 2 DM, with an HA1c of 6.2-6.6%, lee jaramillo is now diet controlled. I told her this was less likely the result of a gluten free diet per se and more likely the result of 30 lb weight loss and a low carb diet. But it is better than taking meds! Current guidelines recommend metformin for all patients with Type 2 diabetes, but she is deriving so much positive self image from controlling it without medication and the benefit in such cases is largely theoretical (preservsation of beta cell function, hinted at circumstantially but not proven) that I see no need to try to reinstitute this. I did warn her that usually this type of success is undermined by a lack of vigilance or personal stressors which reduce compliance with the diet. 2) Hypothyroidism - while DM2, hyperlipidemia and GERD can improve a lot via weight loss, hypothyroidism does not . Moreover, her PCP measured her antiTPO which is quite elevated and suggests she hashashimoto's thyroiditis IF her thyroid function is low. I repeated the thyroid tests today to be sure we are not missing a slow decline in thyroid state - I would advise annual TSH/fT4. It is possible that she had a transient elevation in TSH Which, in tandem with the antiTPO, led to starting T4 but that it was actually quite premature. 30 Hyperlipidemia - her LDL is now over target and at her age she would benefit from a statin. I will notify her of this recommendation by mail - she could try red rice yeast since this might lower the LDL under 100, but a statin would be more efficacious (and probably cheaper!) 4) Depression - she is struggling a bit with this but does not want medication at this time and does not show signs and symptoms of major depression. Overall a nice demonstration of the metabolic mayhem engendered in 30 excess pounds of body weight ! At her request, we will see her again in 1 year, though I told her that her PCP could follow this. documented in this encounter Plan of Treatment Not on file documented as of this encounter Procedures Procedure Name Priority Date/Time Associated Diagnosis Comments TSH Routine 03/17/2012 12:35 PM EST DM w/o complication type II Primary hypothyroidism T4, FREE Routine 03/17/2012 12:35 PM EST DM w/o complication type II Primary hypothyroidism LDL CHOLESTEROL, DIRECT Routine 03/17/2012 12:35 PM EST DM w/o complication type II HEMOGLOBIN A1C STAT 03/17/2012 12:35 PM EST DM w/o complication type II documented in this encounter Results * T4, free (03/17/2012 12:35 PM EST) Free T4 1.03 0.90 - 1.60 ng/dL [facility] Blood specimen (specimen) 03/17/2012 12:35 PM EST 03/17/2012 12:52 PM EST Narrative Resulting Agency Comment Spec In Lab Palomo Ingram MD CHEMISTRY ORDERABLES [facility] * (ABNORMAL) LDL Cholesterol, Direct (03/17/2012 12:35 PM EST) LDL Cholesterol, Direct 113(H) <=99 mg/dL [facility] Comment: The National Cholesterol Education Program (NCEP) has set the following guidelines for LDL Cholesterol: Reference range: ?? Optimal: ?<100 mg/dL ?? Near Optimal/Above Optimal: ?? 100-129 mg/dL ?? Borderline high: ?130-159 mg/dL ?? High: ? 160-189 mg/dL ?? Very high: ?>pp=695 mg/dL CHARLA 2001: 285(98):0606-2140 Blood specimen (specimen) 03/17/2012 12:35 PM EST 03/17/2012 12:52 PM EST Narrative Resulting Agency Comment Spec In Lab Palomo Ingram MD CHEMISTRY ORDERABLES [facility] * Hemoglobin A1c (03/17/2012 12:35 PM EST) Hemoglobin A1c 6.1 4.3 - 6.1 % [facility] Estimated Average Glucose 128 mg/dL [facility] Comment: eAG equivalents for HbA1c percentages: HbA1c(%) ?eAG(mg/dL) 6.0 ?126 6.5 ?140 7.0 ?154 7.5 ?169 8.0 ?183 8.5 ?197 9.0 ?212 9.5 ?226 10.0 ? 240 Limitations: The eAG calculation has not been validated on women, individuals below 18 years old and above 70 years old, and individuals with hemoglobinopathies. Additional resources are available on the ADA website: ??http://professional.diabetes.org/glucosecalculator.aspx Reference: Fito MÁRQUEZ, Cristhian J, Hugh R, et al. ??Translating the A1C assay into estimated average glucose values. ??Diabetes Care 2008:31(8):3970-0380. Blood specimen (specimen) 03/17/2012 12:35 PM EST 03/17/2012 12:52 PM EST Narrative Resulting Agency Comment Spec In Lab Palomo Ingram MD CHEMISTRY ORDERABLES Performing Organization Address [facility] de Phone Number JED GORMANCompumatrixKARLI * TSH (03/17/2012 12:35 PM EST) Thyroid Stimulating Hormone 2.49 0.27 - 4.20 mcIU/mL CERALBA GORMANENNIUM Blood specimen (specimen) 03/17/2012 12:35 PM EST 03/17/2012 12:52 PM EST Narrative Resulting Agency Comment Spec In Lab Palomo Ingram MD CHEMISTRY ORDERABLES Performing Organization Address [facility] de Phone Number JED GORMAN[facility]KARLI documented in this encounter Visit Diagnoses Diagnosis Type II or unspecified type diabetes mellitus without mention of complication, not stated as uncontrolled Primary hypothyroidism Unspecified hypothyroidism documented in this encounter Care Teams Lead Painter Relationship Specialty Start Date End Date Sabine Garcia MD [address] [place] [address] PCP - General 01/15/10 07/13/14 documented as of this encounter
--- OUTSIDE RECORDS SUMMARY | 2024-02-22 17:22 | XMS_ITS | Encounter Summary ---
Author Organization [facility] [place] [address] Care Team Providers Care Ct Technologist Name Role Phone Shilpi Castañeda DEEDEE Primary Care Provider [phone] Encounter Details Date Type Department Care Team (Late st Contact Info) Description 08/08/2020 10:00 AM EDT Office Visit Dermatology at [facility] [address] [place] [address] Jose Ramon Castillo MD [facility] [address] [place] [address] SK (seborrheic keratosis); Fay angioma; Longitudinal melanonychia; Congenital nevus Social History Tobacco Use Types Packs/Day Years [...] as of this encounter Progress Notes * Jose Ramon Castillo MD - 08/08/2020 10:00 AM EDT Images from the original note were not included. DEPARTMENT OF DERMATOLOGY Medical D[facility]atology Clinic Provider: Jose Ramon Castillo MD Patient's preferred name Reva Preferred contact method for results []myDH []Letter [x]Phone: home Detailed phone message OK? 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 year old. Patient returns to clinic today for full skin cancer screening. No specific skin concerns today. Last visit at [facility] Derm: 02/18/2019 Last visit with this provider: Visit date not found Medications: Reviewed in eD-H Allergies: Reviewed in eD-H Skin Examination: Full skin examination: Patient asked to undress to their comfort level. Verbalized that the provider's preference is that patient removal all clothing and that the provider will not examine areas patient elects to keep covered. Examination of the scalp, hair, head, face, ears, neck, chest, axillae,abdomen, back, buttocks, genitalia, and upper and lower extremities. Assessment/Plan: #. Longitudinal melanonychia DDX: Nail matrix nevus vs. Melanocytic activation- longitudinal light black band of the nail of theleft great toe w/o nail fold involvement or nail dystrophy - Discussed option of clinical monitoring vs. Nail biopsy and risk and benefits - Reassurance, no concerning signs for malignancy at this time - Joint decision to continue clinical monitoring # Congenital nevus - right lower lip - - Reassured regarding benign clinical appearance. - Instructed patient to monitor the area and return to clinic if lesion changes, enlarges, or becomes symptomatic. # Fay angiomas - trunk - Benign, reassurance - No treatment necessary # Seborrheic keratoses - trunk - Explained that these are hereditary and adult-acquired. - Reassured patient of benign nature. No treatment necessary. # Sun protection: - discussed the importance of sun protection including hat with brim, sun protective clothing, sunscreen SPF 30 with physical block, avoiding peak hours of sunlight. - Reviewed ABCDE's of Melanoma, and other etiologies of non-melanotic skin cancers - Recommended to perform monthly skin exams and to monitor any spots of concern Other items to document in the assessment/plan if relevant ??? Sun protection discussed (protective clothing and SPF30+ broad-spectrum sunscreen) RTC: 1 year for FBSE, sooner if needed. []Note routed to elementary secretary [x]Recall has been placed in scheduling system []Appointment scheduled at checkout Scribe attestation: Martha Stanford CMA who has performed the documentation for this encounter in the presence of and acting as a scribe for Jose Ramon Castillo MD. I performed the above scribed service and agree with the accuracy of the documentation in this encounter. Reviewed and signed by: Jose Ramon Castillo MD Dermatology [facility] documented in this encounter Plan of Treatment Not on file documented as of this encounter Visit Diagnoses Diagnosis SK (seborrheic keratosis) Other seborrheic keratosis Fay angioma Nevus, non-neoplastic Longitudinal melanonychia Other specified disease of nail Congenital nevus Benign neoplasm of skin, site unspecified documented in this encounter Care Teams Ct Technologist Relationship Specialty Start Date End Date Shilpi Castañeda APRN [address] [place] [address] PCP - General Internal Medicine 05/28/16 documented as of this encounter
--- OUTSIDE RECORDS SUMMARY | 2024-02-22 17:22 | XMS_ITS | Encounter Summary ---
Author Organization [facility] [place] [address] Care Team Providers Care Drilling Machine Operator Name Role Phone Shilpi Castañeda DEEDEE Primary Care Provider [phone] Encounter Details Date Type Department Care Team (Late st Contact Info) Description 12/18/2020 [place] [address] Radha Moncada OD [facility] [place] [address] [place] [address] Social History Tobacco Use Types Packs/Day Years [...] encounter Miscellaneous Notes * Telephone Encounter - Miada Gonzalez - 12/18/2020 4:07 PM EDT Patient called in, was asking questions regarding her last appointment. She stated no one really explained to her the findings and how to proceed. I let patient know that Dr. Moncada had sent her to Dr. Tejeda (appointment is upcoming) due to mild macular degeneration and the chorodial nevus. She asked why, I stated it was to establish a baseline. She asked if that was what Dr. Moncada did, and I said in a way, but with DM we will takepictures so it will be a more in-depth baseline. Patient then went on to state that she had a bad experience with Dr. Moncada (see earlier TE in chart) and that she wanted to speak to someone about it. I let her know that I'd send a message to Laura Taylor so they could touch base and discuss her prior appointment issues, and perhaps answer questions about her upcoming appt with DM. She can be reached at [phone] after 2pm tomorrow (and it is ok to leave a message if she does not answer). documented in this encounter Plan of Treatment Not on file documented as of this encounter Visit Diagnoses Not on filedocumented in this encounter Care Teams Drilling Machine Operator Relationship Specialty Start Date End Date Shilpi Castañeda APRN [address] [place] [address] PCP - General Internal Medicine 05/28/16 documented as of this encounter
--- OUTSIDE RECORDS SUMMARY | 2024-02-22 17:22 | XMS_ITS | Encounter Summary ---
Author Organization [facility] [place] [address] Care Team Providers Care Hplc Chemist Name Role Phone Shilpi Castañeda APRN Primary Care Provider [phone] Encounter Details Date Type Department Care Team (Late st Contact Info) Description 09/25/2021 [place] [phone] Anastacio eTjeda MD Social History Tobacco Use Types Packs/Day Years [...] encounter Miscellaneous Notes * Telephone Encounter - Mel Shafer - 09/25/2021 5:07 PM EDT Called and spoke to pt to reschedule her appt with DM that was bumped on 10/23. Pt does not wish to reschedule at this time. I gave pt our # to contact us if she chooses to reschedule at a later date. Next Avail Retina Eval for: Choroidal nevus documented in this encounter Plan of Treatment Not on file documented as of this encounter Visit Diagnoses Not on filedocumented in this encounter Care Teams Hplc Chemist Relationship Specialty Start Date End Date Shilpi Castañeda APRN [address] [place] [address] PCP - General Internal Medicine 05/28/16 documented as of this encounter
--- OUTSIDE RECORDS SUMMARY | 2024-02-22 17:22 | XMS_ITS | Encounter Summary ---
Author Organization [facility] [place] [address] Care Team Providers Care Ledger Poster Name Role Phone Kassi Richard MD Primary Care Provider [phone] Reason for Visit * Reason Comments Bladder Cancer Encounter Details Date Type Department Care Team (Late st Contact Info) Description 01/26/2015 4:00 PM EST Office [place] [address] Carrie Brown MD [facility] [place] [address] Malignant neoplasm of lateral wall of urinary bladder Social History Tobacco Use Types Packs/Day Years Used Date Smoking Tobacco: Former Sex and Gender Information Value Date Recorded Sex Assigned at Not on file Gender Identity Not on file Sexual Orientation Not on file documented as of this encounter Progress Notes * Carrie Brown MD - 01/26/2015 2:39 PM EST Procedure Note Procedure: Flexible Cystoscopy Surgeon: CARRIE BROWN MD Preoperative Diagnosis: History of Bladder Cancer [...] bladder was systematically inspected through 360 degrees with the flexible telescope including retroversion. Anterior urethroscopy was normal. The ureteral orifices were in normal position and effluxed clear urine. The bladder was normal. There were no bladder, tumors mucosal abnormalities or bladder stones. The cystoscope was removed. The patient tolerated the procedure without difficulty. There were no complications. Impression plan No evidence of recurrent bladder tumor Recommend follow-up in 8 months or sooner as needed CARRIE BROWN MD documented in this encounter Plan of Treatment Not on file documented as of this encounter Visit Diagnoses Diagnosis Malignant neoplasm of lateral wall of urinary bladder documented in this encounter Care Teams Ledger Poster Relationship Specialty Start Date End Date Kassi Richard MD [address] [place] [id number] PCP - General 07/14/14 05/27/16 documented as of this encounter
== END 2024-02-22 17:18 | disposition home or self-care (01) ==
LOC: LBN 17:17
PROVIDERS: PCP Nurse Practitioner; Visit Provider Physician Assistant
DX: N39.0 Urinary tract infection, site not specified (principal)
CPT/HCPCS: 87077; 87086; 87186

== ENCOUNTER 2024-02-29 16:00 | Outpatient (REF) | payer MEDICARE, SELFPAY | END 2024-02-29 16:01 | disposition home or self-care (01) | LOC: LBN 16:00 | PROVIDERS: PCP Nurse Practitioner; Visit Provider Nurse Practitioner | DX: R53.83 Other fatigue (principal); R30.0 Dysuria | CPT/HCPCS: 87086 ==

== ENCOUNTER 2024-03-01 01:24 | Outpatient (CLI) | payer MEDICARE, SELFPAY ==
--- NOTE | 2024-03-01 07:00 | DI.RAD_ITS ---
Exam(s) XR FOOT RT COMPLETE EXAM: XR FOOT RT COMPLETE CLINICAL HISTORY: right foot pain,M79.671. TECHNIQUE: 2D digital imaging was performed of the right foot. Three images were obtained. AP, obl ique and lateral views were obtained. COMPARISON: CR XR FOOT RT COMPLETE from 12/03/2022 FINDINGS: BONES: No acute fracture is present. No bony destructive lesion is seen. There is an enthesophyte at the posterior calcaneus. JOINTS: No dislocation present. Degenerative changes are seen in the foot characterized by joint spac e narrowing and osteophytes. The findings are most marked at the 1st MTP joint. There is a hallux v algus deformity. SOFT TISSUE: Normal. 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 DATA REPOSITORY: RADIATION DOSE DELIVERED:
== END 2024-03-01 01:44 ==
LOC: DI 01:24
PROVIDERS: PCP Nurse Practitioner; Visit Provider Podiatrist
DX: M20.11 Hallux valgus (acquired), right foot (principal)
CPT/HCPCS: 73630

== ENCOUNTER 2024-03-06 11:03 | Emergency (ER) | payer MEDICARE, SELFPAY ==
--- OUTSIDE RECORDS SUMMARY | 2024-03-06 11:14 | XMS_ITS | Encounter Summary ---
Author Organization [facility] [place] [address] Care Team Providers Care Wine Cellar Stock Clerk Name Role Phone Shilpi Castañeda DEEDEE Primary Care Provider [phone] Reason for Visit * Reason Onset Date Comments Other 10/18/2020 Concerns for dil ated pupils Encounter Details Date Type Department Care Team (Late st Contact Info) Description 10/18/2020 Telephone [place] [phone] Radha Moncada, [facility] [place] [address] Other (Concerns for dilated pupils) Social History [...] 01/10/21 Called and spoke with pt to [facility] an appt with Dr Tejeda on 01/10/21 for: Next Avail Retina Evalfor: Choroidal nevus. Reviewed location, duration, recommendation of a sprinkler truck driver, that eyes are dilated for this [...] the exam, she wasn't understanding what Dr oMncada was saying with regard to her freckle [...] on filedocumented in this encounter Care Teams Wine Cellar Stock Clerk Relationship Specialty Start Date End Date Shilpi Castañeda APRN [address] [place] [address] PCP - General Internal Medicine 05/28/16 documented as of this encounter
--- OUTSIDE RECORDS SUMMARY | 2024-03-06 11:14 | XMS_ITS | Encounter Summary ---
[place] [address] Care Team Providers Care Sales Assistant Displays Name Role Phone Shilpi Castañeda APRN Primary Care Provider [phone] Reason for Visit * Consultation (Routine) - Closed Specialty Diagnoses / Procedures Referred By Anil t Referred To Contact Allergy Diagnoses Other allergy status, other than to drugs and biological substances Allergy to other foods Shilpi Castañeda APRN [address] [place] [address] [facility] [address] [place] [id number] Referral ID Status Reason Start Date Expiration Date V isits Requested Visits Authorized [id number] Closed Consult, Test & Treat Connection [facility] PCP Updated and/or Approved 06/14/2020 06/14/2021 6 6 Encounter Details Date Type Department Care Team (Late st Contact Info) Description 01/31/2021 1:00 PM EST Office [place] [address] Reva Canada MD Adverse food [...] for your test results. You may call [phone] or send a message through the [facility] portal. documented in this encounter Progress Notes [...] rash. No facial or tongue swelling. Her rescue boat operator told her it may be histamine sensitivity. [...] up from providers. She has seen a retail tire sales manager/oceanographer assistant in the past which was not helpful. 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 Blood 01/31/2021 2:53 PM EST 02/01/2021 7:37 AM EST Narrative Resulting Agency Comment Spec In Lab Reva Canada MD CHEMISTRY ORDERABLES Performing Organization Address City/State/[facility] Co de Phone Number [facility] [place] [address] documented in this encounter Visit Diagnoses Diagnosis Adverse food reaction, initial encounter Diarrhea, unspecified type documented in this encounter Care Teams Sales Assistant Displays Relationship Specialty Start Date End Date Shilpi Castañeda APRN [address] [place] [address] PCP - General Internal Medicine 05/28/16 documented as of this encounter
--- OUTSIDE RECORDS SUMMARY | 2024-03-06 11:14 | XMS_ITS | Encounter Summary ---
Author Organization [facility] [place] [address] Care Team Providers Care Astro Technician Name Role Phone Shilpi Castañeda APRN Primary Care Provider [phone] Encounter Details Date Type Department Care Team (Late st Contact Info) Description 09/23/2022 2:15 PM EDT Office Visit Dermatology at [facility] [address] [place] [address] Jose Ramon Castillo MD [facility] [address] [place] [place] [address] Seborrheic keratosis; Fay angioma; Multiple benign nevi [...] this encounter Progress Notes * César Gallegos, [facility] - 09/23/2022 2:15 PM EDT [...] relevant family history No SOCIAL HISTORY 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 Patient returns to clinic today for a 1 yearFSE. Previous [facility] patient. In early February 2022, patient [...] 1 year for FSE []Note routed to ammonium nitrate crystallizer [x]Recall placed in scheduling system []Appointment scheduled at checkout Scribe attestation: SRIRAM Sanchez has performed the documentation for this encounter in thepresence of and acting as a scribe for Jose Ramon Castillo MD. I performed the above scribed service and agree with the accuracy of the documentation in this encounter. Reviewed and signed by: Jose Ramon Castillo MD Dermatology [facility] documented in this encounter Plan of Treatment Not on file documented as of this encounter Visit Diagnoses Diagnosis Seborrheic keratosis Other seborrheic keratosis Fay angioma Nevus, non-neoplastic Multiple benign nevi of upper extremity, lower extremity, and trunk Lentigines Other dyschromia Seborrheic dermatitis Seborrheic dermatitis, unspecified documented in this encounter Care Teams Astro Technician Relationship Specialty Start Date End Date Shilpi Castañeda APRN [address] [place] [address] PCP - General Internal Medicine 05/28/16 documented as of this encounter
--- OUTSIDE RECORDS SUMMARY | 2024-03-06 11:14 | XMS_ITS | Encounter Summary ---
Author Organization [facility] [place] [address] Care Team Providers Care Dental Assisting Instructor Name Role Phone Shilpi Castañeda APRN Primary Care Provider [phone] Encounter Details Date Type Department Care Team (Late st Contact Info) Description 09/25/2021 Tele[place] [phone] Anastacio Tejeda MD Social History Tobacco Use Types Packs/Day [...] on filedocumented in this encounter Care Teams Dental Assisting Instructor Relationship Specialty Start Date End Date Shilpi Castañeda APRN [address] [place] [address] PCP - General Internal Medicine 05/28/16 documented as of this encounter
--- OUTSIDE RECORDS SUMMARY | 2024-03-06 11:14 | XMS_ITS | Encounter Summary ---
Author Organization [facility] Address [facility] [place] [address] Care Team Providers Care Field Service Technician Name Role Phone Shilpi Castañeda APRN Primary Care Provider [phone] Encounter Details Date Type Department Care Team (Late st Contact Info) Description 09/04/2022 Telephone Dermatology at [facility] [address] [place] [address] Jose Ramon Castillo MD [facility] [address]UTH[address] [place] [address] Social History Tobacco Use Types Packs/Day Years [...] on filedocumented in this encounter Care Teams Field Service Technician Relationship Specialty Start Date End Date Shilpi Castañeda, COORDINATOR [employer] [address] [place] [address] PCP - General Internal Medicine 05/28/16 documented as of this encounter
--- OUTSIDE RECORDS SUMMARY | 2024-03-06 11:14 | XMS_ITS | Encounter Summary ---
Author Organization [facility] Address [facility] [place] [address] Care Team Providers Care Sawmill Moulder Operator Name Role Phone Shilpi Castañeda APRN Primary Care Provider [phone] Reason for Visit * Consultation (Routine) - Closed Specialty Diagnoses / Procedures Referred By Anil more Referred To Contact Dermatology Diagnoses Pruritus Shilpi Castañeda APRN [address] [place] [address] [facility] Dermatology [address] [place] [address] Referral ID Status Reason Start Date Expiration Date V isits Requested Visits Authorized [id number] Closed Consult, Test & Treat PCP Updated and/or Approved 06/04/2021 06/04/2022 6 6 Encounter Details Date Type Department Care Team (Late st Contact Info) Description 09/19/2021 11:15 AM EDT Office Visit Dermatology at [facility] [address] [place] [address] Jose Ramon Castillo MD [facility] [address] [place] [address] Notalgia paresthetica; Seborrheic keratoses; Lentigines; Fay angioma; [...] relevant family history No SOCIAL HISTORY 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 [...] 1 year for FSE []Note routed to secretary administrative assistant [x]Recall placed in scheduling system []Appointment scheduled at checkout Scribe attestation: César Gallegos has performed the documentation for this encounter in the presence of and acting as a scribe for Jose Ramon Castillo MD. I performed the above scribed service and agree with the accuracy of the documentation in this encounter. Reviewed and signed by: Jose Ramon Castillo MD Dermatology [facility] documented in this encounter Plan of Treatment [...] glands documented in this encounter Care Teams Sawmill Moulder Operator Relationship Specialty Start Date End Date Shilpi Castañeda APRN [address] [place] [address] PCP - General Internal Medicine 05/28/16 documented as of this encounter
--- OUTSIDE RECORDS SUMMARY | 2024-03-06 11:14 | XMS_ITS | Encounter Summary ---
Author Organization [facility] [place] [address] Care Team Providers Care Packaging Sales Representative Name Role Phone Shilpi Castañeda APRN Primary Care Provider [phone] Encounter Details Date Type Department Care Team [...] on filedocumented in this encounter Care Teams Packaging Sales Representative Relationship Specialty Start Date End Date Shilpi Castañeda APRN [address] [place] [address] PCP - General Internal Medicine 05/28/16 documented as of this encounter
--- OUTSIDE RECORDS SUMMARY | 2024-03-06 11:14 | XMS_ITS | Encounter Summary ---
Author Organization [facility] Address [facility] [place] [address] Care Team Providers Care Automation/Controls Manager Name Role Phone Shilpi Castañeda APRN Primary Care Provider [phone] Reason for Visit * Reason Onset Date Comments Medication Refill 02/25/2022 Encounter Details Date Type Department Care Team (Late st Contact Info) Description 02/25/2022 Refill Dermatology at [facility] [address] [place] [address] Jose Ramon Castillo MD [facility] [address] [place] [address] Social History Tobacco Use Types Packs/Day Years [...] on filedocumented in this encounter Care Teams Automation/Controls Manager Relationship Specialty Start Date End Date Shilpi Castañeda APRN [address] [place] [address] PCP - General Internal Medicine 05/28/16 documented as of this encounter
--- OUTSIDE RECORDS SUMMARY | 2024-03-06 11:14 | XMS_ITS | Encounter Summary ---
[place] [address] Care Team Providers Care Tool Planner Name Role Phone Shilpi Castañeda APRN Primary Care Provider [phone] Encounter Details Date Type Department Care Team [...] on filedocumented in this encounter Care Teams Tool Planner Relationship Specialty Start Date End Date Shilpi Castañeda APRN [address] [place] [address] PCP - General Internal Medicine 05/28/16 documented as of this encounter
--- OUTSIDE RECORDS SUMMARY | 2024-03-06 11:14 | XMS_ITS | Encounter Summary ---
Author Organization [facility] Address [facility] [place] [address] Care Team Providers Care Conduit Reamer Operator Name Role Phone Shilpi Castañeda DEEDEE Primary Care Provider [phone] Encounter Details Date Type Department Care Team (Late st Contact Info) Description 02/20/2022 Telephone Dermatology at [facility] [address] [place] [address] Jose Ramon Castillo MD [facility] [address] [place] [address] Social History Tobacco Use Types Packs/Day Years [...] something stronger to use. Call the pt [phone]. The pharmacy she uses is [facility] documented in this encounter Plan of Treatment Not on file documented as of this encounter Visit Diagnoses Not on filedocumented in this encounter Care Teams Conduit Reamer Operator Relationship Specialty Start Date End Date Shilpi Castañeda APRN [address] [place] [address] PCP - General Internal Medicine 05/28/16 documented as of this encounter
--- OUTSIDE RECORDS SUMMARY | 2024-03-06 11:14 | XMS_ITS | Encounter Summary ---
Author Organization [facility] [place] [address] Care Team Providers Care First Dyer Name Role Phone Shilpi Castañeda DEEDEE Primary Care Provider [phone] Encounter Details Date Type Department Care Team (Late st Contact Info) Description 12/18/2020 [place] [address] Radha Moncada OD [facility] [place] [address] Social History Tobacco Use Types Packs/Day Years [...] encounter Miscellaneous Notes * Telephone Encounter - Maida Gonzalez - 12/18/2020 4:07 PM EDT Patient [...] that I'd send a message to Laura Taylro so they could touch base and discuss her prior appointment issues, and perhaps answer questions about her upcoming appt with DM. She can be reached at [phone] after 2pm tomorrow (and it is ok to leave a message if she does not answer). documented in this encounter Plan of Treatment Not on file documented as of this encounter Visit Diagnoses Not on filedocumented in this encounter Care Teams First Dyer Relationship Specialty Start Date End Date Shilpi Castañeda APRN [address] [place] [address] PCP - General Internal Medicine 05/28/16 documented as of this encounter
--- OUTSIDE RECORDS SUMMARY | 2024-03-06 11:14 | XMS_ITS | Encounter Summary ---
Author Organization [facility] [place] [address] Care Team Providers Care New Car Inspector Name Role Phone Shilpi Castañeda DEEDEE Primary Care Provider [phone] Encounter Details Date Type Department Care Team (Late st Contact Info) Description 12/03/2023 2:15 PM EDT Office Visit Dermatology at [facility] [address] [place] [address] Jose Ramon Castillo MD [facility] [address] [place] [address] Skin cancer screening; Sebopsoriasis; SK (seborrheic keratosis); [...] relevant family history No SOCIAL HISTORY 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 I performed the above scribed service and agree with the accuracy of the documentation in this encounter. Reviewed and signed by: Jose Ramon Castillo MD Dermatology [facility] documented in this encounter Plan of Treatment [...] non-neoplastic documented in this encounter Care Teams New Car Inspector Relationship Specialty Start Date End Date Shilpi Castañeda, DEEDEE [address] [place] [address] PCP - General Internal Medicine 05/28/16 documented as of this encounter
--- OUTSIDE RECORDS SUMMARY | 2024-03-06 11:14 | XMS_ITS | Clinical Summary ---
Author Organization [facility] Address [facility] [place] [address] Care Team Providers Care Ostomy Nurse Name Role Phone Shilpi Castañeda DEEDEE Primary Care Provider [phone] Allergies Active Allergy Reactions Criticality Noted Date [...] - depression 01/17/2009 CIS - DM2 01/17/2009 Immunizations Name Administration Dates Next Due Pneumococcal [...] - Influenza standard series) 10/25/2023 Care Teams Ostomy Nurse Relationship Specialty Start Date End Date Shilpi Castañeda APRN [address] [place], [place] [address] PCP - General Internal Medicine 05/28/16
--- OUTSIDE RECORDS SUMMARY | 2024-03-06 11:14 | XMS_ITS | Encounter Summary ---
Author Organization [facility] Address [facility] [place] [address] Care Team Providers Care Supervisor Accounting Clerks Name Role Phone Shilpi Castañeda APRN Primary Care Provider [phone] Reason for Referral * Consultation (Routine) - Closed Specialty Diagnoses / Procedures Referred By Anil more Referred To Contact Dermatology Diagnoses Pruritus Shilpi Castañeda APRN [address] [place] [address] [facility] Dermatology [address] [place] [address] Referral ID Status Reason Start Date Expiration Date V isits Requested Visits Authorized [id number] Closed Consult, Test & Treat PCP Updated and/or Approved 06/04/2021 06/04/2022 6 6 Encounter Details Date Type Department Care Team (Late st Contact Info) Description 06/04/2021 Transcribe Orders eDH Incoming Referrals [phone] Shilpi Castañeda TIRE CARE MANAGER [address] [place], [place] [id number] Pruritus Social History Tobacco Use Types Packs/Day [...] disorder documented in this encounter Care Teams Supervisor Accounting Clerks Relationship Specialty Start Date End Date Shilpi Castañeda APRN [address] [place] [address] PCP - General Internal Medicine 05/28/16 documented as of this encounter
[2024-03-06 11:15] VITALS: BP 113/56; PULSE 77; RESP 16; TEMP 36.8; O2SAT 98
--- OUTSIDE RECORDS SUMMARY | 2024-03-06 11:15 | XMS_ITS | Encounter Summary ---
Author Organization [facility] Address [facility] [place] [address] Care Team Providers Care Ornamental Metal Worker Helper Name Role Phone Hanna Castañedayce Ryan MARK Primary Care Provider [phone] Encounter Details Date Type Department Care Team (Latest Contact Info) Description 06/02/2017 - 06/02/2017 11:59 PM EDT Hospital Encounter Radiology Library at [facility] [place] [address] Ana Curiel MD Discharge Disposition: Home Social [...] MR Head (06/02/2017 12:00 AM EDT) Narrative [facility] - 07/15/2017 3:58 PM EDT This exam is for storage only and is auto-finalizing. Ana Curiel MD IMG FILM LIBRARY O RDERABLES [place], [place] documented in this encounter Visit Diagnoses Not on filedocumented in this encounter Care Teams Ornamental Metal Worker Helper Relationship Specialty Start Date End Date Shilpi Castañeda APRN [address] [place] [address] PCP - General Internal Medicine 05/28/16 documented as of this encounter
--- OUTSIDE RECORDS SUMMARY | 2024-03-06 11:15 | XMS_ITS | Encounter Summary ---
Author Organization [facility] Address [address] [place] [address] Care Team Providers Care Personal Financial Representative Name Role Phone Unavailable Primary Care Provider Unavailabl e Encounter Details Date Type Department Care Team (Late st Contact Info) Description 01/03/2008 Before [facility] Converted Visit ([facility]) [facility] conversion [address] [place] [address] Marzena Fountain, ARASELI [address] [place] [address] Social History Tobacco Use Types [...] ? AMY QUINTANA ? Accession #: ? [id number] ? : ? 1945 (Age: 62) ??F ?Collect Date: ? 01/03/2008 ? Location: ? [facility] ? Receive Date: ? 01/05/2008 ? Provider: ?MARZENA [facility] ARCHITECT ? Copy to: ? Specimen/Source: ?Pap Test, [...] [facility] 01/03/2008 01/05/2008 us Marzena Fountain [facility] ARCHITECT PATHOLOGY ORDERABLES Final Res ult [facility] [address] [place] [address] documented in this encounter Visit Diagnoses Not on filedocumented in this encounter
--- OUTSIDE RECORDS SUMMARY | 2024-03-06 11:15 | XMS_ITS | Encounter Summary ---
Author Organization [facility] Address [address] [place] [address] Care Team Providers Care Die Maintenance Name Role Phone Unavailable Primary Care Provider Unavailabl e Encounter Details Date Type Department Care Team (Late st Contact Info) Description 12/28/2006 Results Only [facility] conversion [address] [place] [address] Marzena Fountain, ARASELI [address] [place] [address] Social History Tobacco Use Types [...] ? AMY QUINTANA ? Accession #: ? [id number] : ? 1945 (Age: 61) ??F ?Collect Date: ? 12/28/2006 Location: ? [facility] ? Receive Date: ? 12/30/2006 Provider: ?MAREZNA FOUNTAIN EVISCERATOR Copy to: ? Specimen/Source: ?ThinPrep Pap Test, Cervix/Endocervix, processed on [employer] ThinPrep Imaging System, with manual evaluation Last Menstrual Period: ? 9834-7576 Hormonal/Contracep tive Status: ? Yes: E-String (Vaginal) [...] Document reviewed and electronically signed by: ? GRSIEL COLE MD ? Report Date: ??01/05/2007 11:09 End of Report [facility] 12/28/2006 12/30/2006 us Marzena Fountain NP PATHOLOGY ORDERABLES Final Res ult [facility] [address] [place] [address] documented in this encounter Visit Diagnoses Not on filedocumented in this encounter
--- OUTSIDE RECORDS SUMMARY | 2024-03-06 11:15 | XMS_ITS | Referral Summary ---
Author Organization [facility] Address [address] [place] [address] Care Team Providers Care Floor Manager Name Role Phone Rylee Marlow MD Primary Care Provider [phone] Social History Tobacco Use Types Packs/Day Years Used Date Smoking Tobacco: Never Assessed Comments Unknown Sex and Gender Information Value Date Recorded Sex Assigned at Not on file Legal Sex Female 18:41 EST Gender Identity Not on file Sexual Orientation Not on file Plan of Treatment Not on file Care Teams Floor Manager Relationship Specialty Start Date End Date Rylee Marlow MD [address] [place] [address] PCP - General 11/09/12
--- OUTSIDE RECORDS SUMMARY | 2024-03-06 11:15 | XMS_ITS | Encounter Summary ---
Author Organization [facility] Address [address] [place] [address] Care Team Providers Care Glove Sewer Name Role Phone Sabine Sherwood MD Primary Care Provider [phone] Encounter Details Date Type Department Care Team (Late st Contact Info) Description 10/24/2010 Results Only [facility] [phone] Briana Tomlin MD [address] [address] Social History Tobacco Use Types [...] TACKHOWE, AMY L ? Accession #: ? [id number] ? : ? 1945 (Age: 65) ??F [...] with selected slides from the prior case ([id number]), this ?? case has been reviewed in [...] Final Re sult [facility] [address] [place] [address] documented in this encounter Visit Diagnoses Not on filedocumented in this encounter Care Teams Glove Sewer Relationship Specialty Start Date End Date Sabine Sherwood MD [address] [place] [id number] PCP - General 10/10/10 11/08/12 documented as of this encounter
--- OUTSIDE RECORDS SUMMARY | 2024-03-06 11:15 | XMS_ITS | Encounter Summary ---
Author Organization [facility] Address [address] [place] [address] Care Team Providers Care Plant Engineer Name Role Phone Unknown, Provider Primary Care Provider Unava ilable Encounter Details Date Type Department Care Team (Late st Contact Info) Description 10/08/2010 Results Only [facility] [phone] Briana Tomlin MD [address] [address] Social History Tobacco Use Types [...] TACKHOWE, AMY L ? Accession #: ? [id number] ? : ? 1945 (Age: 65) ??F ? Collect Date: ? 10/08/2010 ? Location: ? [facility] ? Receive Date: ? 10/08/2010 ? Provider: BRIANA NISBET MD ? Copy to: AMINA GRIFFINUS MD ? Final Pathologic Diagnosis: ? A. [...] ? Muscularis propria absent. ? Comment: ? Cellulose Insulation Helper sections of this case have been reviewed [...] Gross Description: ? Received in formalin labelled Laurae, Amy and #1 bladder tumor is a 5.5 x 4.0 x 1.0 cm aggregate of multiple stout to stout-white, soft and firm ? fragments of tissue admixed with a 1.2 x 0.8 x 0.5 cm fragment of dark red blood clot. ??The specimen is submitted entirely as (A1) through (A9). ? Received in formalin labelled TackMte, Amy and #2 deep margin bladder ? tumor is a 0.8 x 0.5 x 0.3 cm firm, stout, focally light brown piece of tissue. ?? The specimen is submitted intact as (B). ??(Edmond Felipe)/ljn ? End of Report ? [facility] 10/08/2010 10/08/2010 20: 42 EDT us Briana Tomlin MD PATHOLOGY ORDERABLES Final Re sult [facility] [address] [place] [address] documented in this encounter Visit Diagnoses Not on filedocumented in this encounter Care Teams Plant Engineer Relationship Specialty Start Date End Date Unknown, Provider, PCP - General 10/04/10 10/09/10 documented as of this encounter
--- OUTSIDE RECORDS SUMMARY | 2024-03-06 11:15 | XMS_ITS | Encounter Summary ---
Author Organization [facility] [place] [address] Care Team Providers Care Organic Section Technical Lead Name Role Phone Kassi Richard MD Primary Care Provider [phone] Reason for Visit * Reason Comments Bladder Cancer Encounter Details Date Type Department Care Team (Late st Contact Info) Description 01/26/2015 1:40 PM EST [place] [address] Carrie Brown MD [facility] [place] [address] Gross hematuria (Primary Dx); Malignant neoplasm of [...] to void please call our office at [phone] before 5PM or [phone] after hours. Please call if: * you have copious blood in your urine * fevers greater than 101.3 F * you are unable to void The number for questions is [phone] before 5 PM weekdays and [phone] after 5 PM and weekends. Follow-up: With [...] bladder documented in this encounter Care Teams Organic Section Technical Lead Relationship Specialty Start Date End Date Kassi Richard MD [address] [place] [address] PCP - General 07/14/14 05/27/16 documented as of this encounter
--- OUTSIDE RECORDS SUMMARY | 2024-03-06 11:15 | XMS_ITS | Encounter Summary ---
Author Organization [facility] Address [facility] [place] [address] Care Team Providers Care Burlap Worker Name Role Phone Shilpi Castañeda APRN Primary Care Provider [phone] Reason for Visit * Reason Comments Skin Lesion * Consultation (Routine) - Closed Specialty Diagnoses / Procedures Referred By Contac t Referred To Contact Dermatology Diagnoses Disorder of pigmentation, unspecified Other nail disorders PIGMENT CHANGE UNDER LEFT GREAT TOENAIL PLATE, POSSIBILITY OF MELANOMA Shilpi Castañeda, CROSS TIE TURNER [address] [place] [address] [facility] Dermatology [address] [place] [address] Referral ID Status Reason Start Date Expiration Date V isits Requested Visits Authorized [id number] Closed Consult, Test & Treat Connection Center 06/08/2018 06/08/2019 1 1 Encounter Details Date Type Department Care Team (Latest Contact Info) Description 07/13/2018 8:30 AM EDT Office Visit Dermatology at [facility] [address] [place] [address] Call, Manny Acevedo MD [facility] [address] [place] [address] Longitudinal erythronychia Social History Tobacco [...] about several years ago. was seen by senior oracle dba, concerning and discussed nail biopsy. She denies [...] Harrington MD Resident in Dermatology [facility] Patient seen in conjunction with staff flavoring oil filterer: Vega Rivero MD Section of Dermatology [facility] * Vega Rivero MD - 07/13/2018 8:30 [...] as documented in Dr. Harrington's note. ?? EVGA RIVERO MD Staff Physician documented in this encounter Plan of Treatment Not on file documented as of this encounter Visit Diagnoses Diagnosis Longitudinal erythronychia documented in this encounter Care Teams Burlap Worker Relationship Specialty Start Date End Date Shilpi Castañeda, CROSS TIE TURNER [address] [facility] [place] [address] PCP - General Internal Medicine 05/28/16 documented as of this encounter
--- OUTSIDE RECORDS SUMMARY | 2024-03-06 11:15 | XMS_ITS | Clinical Summary ---
Author Organization [facility] Address [address] [place] [address] Care Team Providers Care Operating Room Manager Name Role Phone Rylee Marlow MD Primary Care Provider [phone] Social History Tobacco Use Types Packs/Day Years [...] COVID-19 Vaccine ( season) 2023 Care Teams Operating Room Manager Relationship Specialty Start Date End Date Rylee Marlow MD [address] [place] [address] PCP - General 11/09/12
--- OUTSIDE RECORDS SUMMARY | 2024-03-06 11:15 | XMS_ITS | Encounter Summary ---
Author Organization [facility] Address [address] [place] [address] Care Team Providers Care Interviewing Clerk Name Role Phone Unavailable Primary Care Provider Unavailabl e Encounter Details Date Type Department Care Team (Late st Contact Info) Description 01/15/2009 Orders Only [facility] Laboratory Services - [facility] ([facility]) [address] [place] [address] Marzena Fountain NP [address] [place] [address] Social History Tobacco Use Types [...] EST 01/25/2009 11:14 EST us Marzena Fountain SECURITIES ATTORNEY MICROBIOLOGY - GENERAL ORDERAB LES Final Result [facility] [address] [address] * CYTOPATHOLOGY (01/15/2009 0:00 EST) Pathology Report: CYTOPATHOLOGY REPORT ? Reports generated via electronic interface contain original data; ? however they are lacking the format of the original report. ? Caution should be taken when reading/interpreti ng unformatted reports. ? Name: ? AMY WEST ? Accession #: ? [id number] ? : ? 1945 (Age: 63) ??F ?Collect Date: ? 01/15/2009 ? Location: ? [facility] ? Receive Date: ? 01/17/2009 ? Provider: ?MARZENA FOUNTAIN SECURITIES ATTORNEY ? Copy to: ? Specimen/Source: ?Pap Test, [...] ORDERABLES Final Res ult Performing Organization Address City/State/[facility] Co de Phone Number [facility] [address] [place] [address] documented in this encounter Visit Diagnoses Not on filedocumented in this encounter
--- OUTSIDE RECORDS SUMMARY | 2024-03-06 11:15 | XMS_ITS | Encounter Summary ---
Author Organization [facility] Address [facility] [place] [address] Care Team Providers Care Glass Blowing Lathe Operator Name Role Phone Sabine Garcia MD Primary Care Provider [phone] Encounter Details Date Type Department Care Team (Latest Contact Info) Description 04/16/2012 - 04/16/2012 11:59 PM EST Hospital Encounter Radiology Library at [facility] [place] [address] Ana Curiel MD Discharge Disposition: Home Social [...] CT Spine (04/16/2012 12:00 AM EST) Narrative [facility] - 07/15/2017 3:57 PM EDT This exam is for storage only and is auto-finalizing. Ana Curiel MD IMG FILM LIBRARY O RDERABLES Performing Organization Address City/State/[facility] Co de Phone Number [place], [place] documented in this encounter Visit Diagnoses Not on filedocumented in this encounter Care Teams Glass Blowing Lathe Operator Relationship Specialty Start Date End Date Sabine Garcia MD [address] [place] [address] PCP - General 01/15/10 07/13/14 documented as of this encounter
--- OUTSIDE RECORDS SUMMARY | 2024-03-06 11:15 | XMS_ITS | Encounter Summary ---
Author Organization [facility] Address [address] [place] [address] Care Team Providers Care Svp Research & Ebusiness Operations Name Role Phone Sabnie Sherwood MD Primary Care Provider [phone] Encounter Details Date Type Department Care Team (Late st Contact Info) Description 11/11/2011 Results Only [facility] [phone] Briana Mendez MD [address] [address] Social History Tobacco Use Types [...] ? AMY QUINTANA ? Accession #: ? [id number] : ? 1945 (Age: 66) ??F ?Collect [...] Final Re sult [facility] [address] [place] [address] documented in this encounter Visit Diagnoses Not on filedocumented in this encounter Care Teams Svp Research & Ebusiness Operations Relationship Specialty Start Date End Date Sabine Sherwood MD [address] [place] [phone] PCP - General 10/10/10 11/08/12 documented as of this encounter
--- OUTSIDE RECORDS SUMMARY | 2024-03-06 11:15 | XMS_ITS | Encounter Summary ---
Author Organization [facility] Address [facility] [place] [address] Care Team Providers Care Lbd Teacher Name Role Phone Shilpi Castañeda APRN Primary Care Provider [phone] Reason for Visit * Reason Comments Blurred Vision * Consultation (Routine) - Closed Specialty Diagnoses / Procedures Referred By Contfabián t Referred To Contact Ophthalmology Diagnoses DRY AMD Procedures CONSULT, TEST & TREAT Shilpi Castañeda APRN [address] [place] [address] Ana Curiel MD [facility] [place] [address] Referral ID Status Reason Start Date Expiration Date V isits Requested Visits Authorized [id number] Closed Evaluate and Treat Connection Center 05/28/2016 05/28/2017 1 1 Encounter Details Date Type Department Care Team (Late st Contact Info) Description 07/15/2016 10:30 AM EDT Office [place] [address] Ana Curiel MD Nonexudative age-related macular degeneration [...] retina documented in this encounter Care Teams Lbd Teacher Relationship Specialty Start Date End Date Shilpi Castañeda, AU PAIR [address] [place] [address] PCP - General Internal Medicine 05/28/16 documented as of this encounter
--- OUTSIDE RECORDS SUMMARY | 2024-03-06 11:15 | XMS_ITS | Encounter Summary ---
Author Organization [facility] Address [address] [place] [address] Care Team Providers Care Athletic Agent Name Role Phone Rylee Marlow MD Primary Care Provider [phone] Encounter Details Date Type Department Care Team (Late st Contact Info) Description 04/17/2023 Lab Requisition [facility] Pathology & Laboratory Medicine - [address] [address] Outr Resulting Lab, Provider Social History Tobacco [...] Salmonella PCR Negative Negative 04/18/2023 10:44 EST [facility] Shigella/Enteroin vasive E. coli Negative Negative 04/18/2023 10:44 EST [facility] LAB CAMPYLOBACTER PCR Positive(A) Negative 04/18/2023 10:44 EST [facility] Shiga Toxin PCR Negative Negative 10:44 EST [facility] Feces SPECIMEN FROM RECTUM / Unknown 04/16/2023 22:00 EST 04/17/2023 21:18 EST Provider Outr Resulting Lab MICROBIOLOGY - GENER AL ORDERABLES Final Result Performing Organization Address City/[facility] Co de Phone Number [facility] [address] [place] [address] * OVA/PARASITE EXAM (04/16/2023 22:00 EST) Parasite No ova and parasites seen. 04/20/2023 15:05 EST [facility] Feces SPECIMEN FROM RECTUM / Unknown 04/16/2023 22:00 EST 04/17/2023 21:18 EST Narrative [facility] - 04/20/2023 15:05 EST (If Cryptosporidium, Cyclospora, or Microsporidium are suspected, specific tests must be requested.) Single negative specimen does not rule out the possibility of a parasitic infection. Provider Outr Resulting Lab MICROBIOLOGY - GENER AL ORDERABLES Final Result Performing Organization Address [facility] Co de Phone Number [facility] [address] [place] [address] documented in this encounter Visit Diagnoses Not on filedocumented in this encounter Care Teams Athletic Agent Relationship Specialty Start Date End Date Rylee Marlow MD [address] [place] [address] PCP - General 11/09/12 documented as of this encounter
--- OUTSIDE RECORDS SUMMARY | 2024-03-06 11:15 | XMS_ITS | Encounter Summary ---
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
--- OUTSIDE RECORDS SUMMARY | 2024-03-06 11:15 | XMS_ITS | Encounter Summary ---
Author Organization [facility] [place] [address] Care Team Providers Care Truant Officer Name Role Phone Kassi Richard MD Primary Care Provider [phone] Reason for Visit * Reason Comments Hematuria Encounter Details Date Type Department Care Team (Latest Contact Info) Description 07/14/2014 2:40 PM EDT [place] [phone] Carrie Brown MD [facility] [place] [address] History of bladder cancer Discharge Disposition: Home [...] and cola. You do not need to eyvkao14 ounces of water today. Urination: You will likely have a small amount of blood in your urine for the next several days. This is normal; however, if you are passing large amounts of blood clots or are unable to void please call our office at [phone] before 5PM or [phone] after hours. Please call if: * you have copious blood in your urine * fevers greater than 101.3 F * you are unable to void The number for questions is [phone] before 5 PM weekdays and [phone] after 5 PM and weekends. Follow-up: documented [...] bladder documented in this encounter Care Teams Truant Officer Relationship Specialty Start Date End Date Kassi Richard MD [address] [place] [address] PCP - General 07/14/14 05/27/16 documented as of this encounter
--- OUTSIDE RECORDS SUMMARY | 2024-03-06 11:15 | XMS_ITS | Encounter Summary ---
Author Organization [facility] [place] [address] Care Team Providers Care Assembler Gold Frame Name Role Phone Sabine Garcia MD Primary Care Provider [phone] Reason for Visit * Reason Comments Diabetes Mellitus Encounter Details Date Type Department Care Team (Latest Contact Info) Description 03/17/2012 11:30 AM EST Office [place] [address] Palomo Ingram MD [facility] [place] [address] DM w/o complication type II; Primary hypothyroidism [...] was attending a meeting and met a model photographers' who suggested to her that she might [...] an herbal antianxiety med and sees an psychology tech Lost 30 lbs Hopes to lose 10 [...] lipid panel: Dec 2011 LDL 78 regular supervisor print line: has seen one in the past for [...] Free T4 1.03 0.90 - 1.60 ng/dL [facility] Blood specimen (specimen) 03/17/2012 12:35 PM EST 03/17/2012 12:52 PM EST Narrative Resulting Agency Comment Spec In Lab Palomo Ingram MD CHEMISTRY ORDERABLES [facility] * (ABNORMAL) LDL Cholesterol, Direct (03/17/2012 12:35 PM EST) LDL Cholesterol, Direct 113(H) <=99 mg/dL [facility] Comment: The National Cholesterol Education Program (NCEP) has set the following guidelines for LDL Cholesterol: Reference range: ?? Optimal: ?<100 mg/dL ?? Near Optimal/Above Optimal: ?? 100-129 mg/dL ?? Borderline high: ?130-159 mg/dL ?? High: ? 160-189 mg/dL ?? Very high: ?>sl=531 mg/dL CHARLA 2001: 285(91):5020-6379 Blood specimen (specimen) 03/17/2012 12:35 PM EST 03/17/2012 12:52 PM EST Narrative Resulting Agency Comment Spec In Lab Palomo Ingram MD CHEMISTRY ORDERABLES [facility] * Hemoglobin A1c (03/17/2012 12:35 PM EST) Hemoglobin A1c 6.1 4.3 - 6.1 % [facility] Estimated Average Glucose 128 mg/dL [facility] Comment: eAG equivalents for HbA1c percentages: HbA1c(%) [...] into estimated average glucose values. ??Diabetes Care 2008:31(8):9298-6689. Blood specimen (specimen) 03/17/2012 12:35 PM EST 03/17/2012 12:52 PM EST Narrative Resulting Agency Comment Spec In Lab Palomo Ingram MD CHEMISTRY ORDERABLES Performing Organization Address [facility] de Phone Number JED GORMANKadrianaKARLI * TSH (03/17/2012 12:35 PM EST) Thyroid Stimulating Hormone 2.49 0.27 - 4.20 mcIU/mL CERALBA GORMANENNIUM Blood specimen (specimen) 03/17/2012 12:35 PM EST 03/17/2012 12:52 PM EST Narrative Resulting Agency Comment Spec In Lab Palomo Ingram MD CHEMISTRY ORDERABLES Performing Organization Address [facility] de Phone Number JED GORMANKadrianaKARLI documented in this encounter Visit Diagnoses Diagnosis Type II or unspecified type diabetes mellitus without mention of complication, not stated as uncontrolled Primary hypothyroidism Unspecified hypothyroidism documented in this encounter Care Teams Assembler Gold Frame Relationship Specialty Start Date End Date Sabine Garcia MD [address] [place] [address] PCP - General 01/15/10 07/13/14 documented as of this encounter
--- OUTSIDE RECORDS SUMMARY | 2024-03-06 11:15 | XMS_ITS | Encounter Summary ---
Author Organization [facility] [place] [address] Care Team Providers Care Enterprise Manager Name Role Phone Shilpi Castañeda DEEDEE Primary Care Provider [phone] Reason for Visit * Reason Onset Date Comments Bumped Appointment 09/25/2020 Encounter Details Date Type Department Care Team (Late st Contact Info) Description 09/25/2020 [place] [address] Radha Moncada OD [facility] [place] [address] Bumped Appointment Social History Tobacco Use Types [...] on filedocumented in this encounter Care Teams Enterprise Manager Relationship Specialty Start Date End Date Shilpi Castañeda APRN [address] [place] [address] PCP - General Internal Medicine 05/28/16 documented as of this encounter
--- OUTSIDE RECORDS SUMMARY | 2024-03-06 11:15 | XMS_ITS | Encounter Summary ---
Author Organization [facility] Address [address] [place] [address] Care Team Providers Care Surveillance Supervisor Name Role Phone Unavailable Primary Care Provider Unavailabl e Encounter Details Date Type Department Care Team (Late st Contact Info) Description 10/02/2010 Results Only [facility] [phone] Briana Mendez MD [address] [facility] [address] [place] [address] Social History Tobacco Use Types [...] ? AMY QUINTANA ? Accession #: ? [id number] ? : ? 1945 (Age: 65) ??F [...] and electronically signed by: ? [facility] ? Report Date: ??10/03/2010 [...] ORDERABLES Final Re sult [facility] [address] [place] [address] documented in this encounter Visit Diagnoses Not on filedocumented in this encounter
--- OUTSIDE RECORDS SUMMARY | 2024-03-06 11:15 | XMS_ITS | Encounter Summary ---
Author Organization [facility] Address [address] [place] [address] Care Team Providers Care Glost Tile Shader Name Role Phone Sabine Garcia MD Primary Care Provider [phone] Encounter Details Date Type Department Care Team (Late st Contact Info) Description 11/05/2012 Results Only [facility] [phone] Briana Mendez MD [address] [address] Social History Tobacco Use Types [...] ? AMY QUINTANA ? Accession #: ? [id number] : ? 1945 (Age: 67) ??F ?Collect [...] Final Re sult [facility] [address] [place] [address] documented in this encounter Visit Diagnoses Not on filedocumented in this encounter Care Teams Glost Tile Shader Relationship Specialty Start Date End Date Sabine Garcia MD [address] [place] [phone] PCP - General 10/10/10 11/08/12 documented as of this encounter
--- OUTSIDE RECORDS SUMMARY | 2024-03-06 11:15 | XMS_ITS | Encounter Summary ---
Author Organization [facility] [place] [address] Care Team Providers Care Optical Advisor Name Role Phone Shilpi Castañeda APRN Primary Care Provider [phone] Reason for Visit * Reason Comments Blurred Vision * Consultation (Routine) - Closed Specialty Diagnoses / Procedures Referred By Contfabián t Referred To Contact Ophthalmology Diagnoses Type 2 diabetes mellitus without complications Unspecified macular degeneration Shilpi Castañeda APRN [address] [place] [address] Radha Moncada, [facility] [facility] [place] [address] Referral ID Status Reason Start Date Expiration Date V isits Requested Visits Authorized [id number] Closed Consult, Test & Treat Connection Center PCP Updated and/or Approved 06/12/2020 06/12/2021 6 6 Encounter Details Date Type Department Care Team (Late st Contact Info) Description 10/18/2020 9:00 AM EDT Office [place] [address] Radha Moncada OD [facility] [place] [address] Diabetic eye exam; Combined forms of age-related [...] Final Rx Eyeglass Final Rx Sphere Cylinder [place] Add Near [place] Right +3.25 [...] presbyopia documented in this encounter Care Teams Optical Advisor Relationship Specialty Start Date End Date Shilpi Castañeda, CERTIFIED LEGAL SECRETARY SPECIALIST [address] [place] [address] PCP - General Internal Medicine 05/28/16 documented as of this encounter
--- OUTSIDE RECORDS SUMMARY | 2024-03-06 11:15 | XMS_ITS | Encounter Summary ---
Author Organization [facility] [place] [address] Care Team Providers Care Picture Painter Name Role Phone Hanna Castañedayce Ryan MARK Primary Care Provider [phone] Encounter Details Date Type Department Care Team (Latest Contact Info) Description 04/22/2019 12:00 PM EST - 04/22/2019 11:59 PM [facility] Hospital Encounter Mobile [place] [address] Adan Jernigan MD [address] [place] [address] Chest pain, unspecified type Discharge Disposition: Home [...] COMPLETE (04/22/2019 12:09 PM EST) EF 60 [employer] Anatomical Region Laterality Modality Other 04/22/2019 Narrative 04/22/2019 12:35 PM EST Procedure: ?Transthoracic Echocardiogram Patient: ?LILIAN Davison . ?(Age): 1945(73y) Med Rec#: ? [id number] ?Sex: ?F ? Site Loc: ? [facility] ??Ht / Wt: ??167.64(cm)/69.4 Pt. Loc: ?BSA: ?1.78 Study Date: ?? 04/22/2019 ?Pt. Type: Inpatient Tape: ? Referring: VERITO Referring: [facility] (Diag Imaging) Referring: [facility](Med/Surg) Referring: [facility](Med Rec) Reading: Jose Alberto Burk ([id number]) Sql Programmer: TRAV Sql Programmer: TRAV Diagnosis: *Chest pain, unspecified (R07.9) BP: [...] Vmax ?0.75 ? m/sec ? MV deceleration aluz416.71 ? msec ? MV A-wave Vmax ?0.63 [...] ? Mid-Inferior ?Normal ? Mid-Inferoseptal ?Normal ? Valdez-Septal ? Normal ? Valdez-Anterior ? Normal ? Valdez-Lateral ?Normal ? Valdez-Inferior ? Normal ? Valdez-Tip ?Normal ? This report has been electronically signed by: Jose Alberto Burk MD ? 04/22/2019 12:34:37 Images reviewed and interpretation verified [facility] Cardiac [facility]trasound [facility] Procedure Note Jose Alberto Burk MD - 04/22/2019 Procedure: Transthoracic Echocardiogram Patient: LILIAN Philip (Age): 1945(73y) Med Rec#: [id number] Sex: F Site Loc: [facility] Ht / Wt: 167.64(cm)/69.4 Pt. Loc: BSA: 1.78 Study Date: 04/22/2019 Pt. Type: Inpatient Tape: Referring: VERITO Referring: [facility] (Diag Imaging) Referring: [facility](Med/Surg) Referring: [facility](Med Rec) Reading: Jose Alberto Burk ([id number]) Sql Programmer: TRAV Sql Programmer: TRAV Diagnosis: *Chest pain, unspecified (R07.9) BP: [...] MV E-wave Vmax 0.75 m/sec MV deceleration mgvr691.71 msec MV A-wave Vmax 0.63 m/sec MV [...] Normal Mid-Posterolateral Normal Mid-Inferior Normal Mid-Inferoseptal Normal Valdez-Septal Normal Valdez-Anterior Normal Valdez-Lateral Normal Valdez-Inferior Normal Valdez-Tip Normal This report has been electronically signed by: Jose Alberto Burk MD 04/22/2019 12:34:37 Images reviewed and interpretation verified [facility] Adan Jernigan MD ECHO ORDERABLES documented in this encounter Visit Diagnoses Diagnosis Chest pain, unspecified type documented in this encounter Care Teams Picture Painter Relationship Specialty Start Date End Date Shilpi Castañeda, SENIOR INFORMATION SECURITY CONSULTANT [address] [place] [address] PCP - General Internal Medicine 05/28/16 documented as of this encounter
--- OUTSIDE RECORDS SUMMARY | 2024-03-06 11:15 | XMS_ITS | Encounter Summary ---
Author Organization [facility] [address] Care Team Providers Care Copy Worker Name Role Phone Shilpi Castañeda DEEDEE Primary Care Provider [phone] Encounter Details Date Type Department Care Team (Late st Contact Info) Description 08/08/2020 10:00 AM EDT Office Visit Dermatology at [facility] [address] [place] [address] Jose Ramon Castillo MD [facility] [address] [place] [address] SK (seborrheic keratosis); Fay angioma; Longitudinal melanonychia; [...] relevant family history No SOCIAL HISTORY 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 year old. Patient returns to clinic today for full skin cancer screening. No specific skin concerns today. Last visit at [facility] Derm: 02/18/2019 Last visit with this provider: [...] FBSE, sooner if needed. []Note routed to director of business services [x]Recall has been placed in scheduling system [...] signed by: Jose Ramon Castillo MD Dermatology [facility] documented in this encounter Plan of Treatment Not on file documented as of this encounter Visit Diagnoses Diagnosis SK (seborrheic keratosis) Other seborrheic keratosis Fay angioma Nevus, non-neoplastic Longitudinal melanonychia Other specified disease of nail Congenital nevus Benign neoplasm of skin, site unspecified documented in this encounter Care Teams Copy Worker Relationship Specialty Start Date End Date Shilpi Castañeda APRN [address] [place] [address] PCP - General Internal Medicine 05/28/16 documented as of this encounter
--- OUTSIDE RECORDS SUMMARY | 2024-03-06 11:15 | XMS_ITS | Encounter Summary ---
Author Organization [facility] Address [address] [place] [address] Care Team Providers Care Collection Clerk Name Role Phone Sabine Sherwood MD Primary Care Provider [phone] Encounter Details Date Type Department Care Team (Late st Contact Info) Description 02/25/2011 Results Only [facility]- PRISM [phone] Briana Mendez MD [address] [address] Social History Tobacco Use Types [...] been reviewed at intradepartmental consultation conference. (Dr. Jordan)/[facility] Document reviewed and electronically signed by: KIRSTEN [...] is entirely submitted as (A1) and (A2). (Saamntha Salazar)/[facility] End of Report [facility] 02/25/2011 02/25/2011 9:5 0 EST us Briana Mendez MD PATHOLOGY ORDERABLES Final Re sult [facility] [address] [place] [address] * CYTOPATHOLOGY (02/25/2011 0:00 EST) Pathologist [place] [...] see the concurrent surgical biopsy ([id number]). ??(Dr. Johnson)/[facility] Document reviewed and electronically signed by: ? [...] ORDERABLES Final Re sult Performing Organization Address City/State/[facility] Co de Phone Number [facility] [address] [place] [address] documented in this encounter Visit Diagnoses Not on filedocumented in this encounter Care Teams Collection Clerk Relationship Specialty Start Date End Date Sabine Sherwood MD [address] [place] [id number] PCP - General 10/10/10 9 documented as of this encounter
--- OUTSIDE RECORDS SUMMARY | 2024-03-06 11:15 | XMS_ITS | Encounter Summary ---
Author Organization [facility] [place] [address] Care Team Providers Care Boatwright Name Role Phone Shilpi Castañeda SVP [employer] Primary Care Provider [phone] Reason for Visit * Reason Comments Skin Check Encounter Details Date Type Department Care Team (Late st Contact Info) Description 02/18/2019 2:00 PM EST Office Visit Dermatology at [facility] [address] [place] [address] Manny Harrington MD [facility] [address] [place] [address] Longitudinal erythronychia; Multiple benign nevi; Notalgia paresthetica; [...] by: Manny Harrington MD Resident in Dermatology [facility] Patient discussed with staff cafe helper: Carlo Wayne MD Section of Dermatology [facility] * Roge Wayne MD - 02/18/2019 2:00 PM EST I was the supervising physician working with dermatology resident Dr. Harrington in the dermatology clinic during this patient visit. The level of Resident supervision for this patient visit was indirect supervision with direct supervision immediately available. (definition: [facility] Policy Statement on raduate Medical Education, Supervision [...] keratosis documented in this encounter Care Teams Boatwright Relationship Specialty Start Date End Date Shilpi Castañeda APRN [address] [place] [address] PCP - General Internal Medicine 05/28/16 documented as of this encounter
--- OUTSIDE RECORDS SUMMARY | 2024-03-06 11:15 | XMS_ITS | Encounter Summary ---
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
[2024-03-06 11:34] LABS: Bilirubin Negative (Negative); Blood Negative (Negative); Clarity Clear (Clear); Glucose Negative (Negative); Ketones Negative (Negative); Leukocyte Esterase Small (Negative); Nitrite Negative (Negative); Urobilinogen 0.2 mg/dL (Up to 0.2)
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
[2024-03-06 11:50] LABS: Bacteria Rare HPF (Negative); C & S Indicated? No; Casts Negative LPF (Negative); Crystals Negative HPF (Negative); Epithelial Cells Rare HPF (Negative); Mucus Negative (Negative); RBC 0-2 HPF (0-2)
[2024-03-06 13:27] VITALS: BP 128/86; PULSE 67; RESP 16; O2SAT 98
--- NOTE | 2024-03-08 08:29 | NUR.NOTE ---
Access chart to determine antibiotic on discharge for urine culture. None prescribed. Nursing Note:
== END 2024-03-06 13:15 | disposition home or self-care (01) ==
PROVIDERS: Emergency Provider Physician Assistant; PCP Nurse Practitioner
DX: N30.00 Acute cystitis without hematuria (principal); R35.0 Frequency of micturition; E11.9 Type 2 diabetes mellitus without complications; E78.5 Hyperlipidemia, unspecified; Z79.84 Long term (current) use of oral hypoglycemic drugs; Z85.51 Personal history of malignant neoplasm of bladder; Z87.891 Personal history of nicotine dependence
CPT/HCPCS: 99283; 81003; 81015; 87086

== ENCOUNTER 2024-03-10 09:40 | Outpatient (REF) | payer MEDICARE, SELFPAY | END 2024-03-10 09:41 | disposition home or self-care (01) | LOC: LBN 09:40 | PROVIDERS: PCP Nurse Practitioner; Visit Provider Obstetrics & Gynecology Gynecology | DX: Z12.39 Encounter for other screening for malignant neoplasm of breast; N39.0 Urinary tract infection, site not specified; N95.2 Postmenopausal atrophic vaginitis; C67.9 Malignant neoplasm of bladder, unspecified; E28.39 Other primary ovarian failure; Z01.411 Encounter for gynecological examination (general) (routine) with abnormal findings | CPT/HCPCS: 87480; 87510; 87660 ==

== ENCOUNTER 2024-03-11 00:59 | Outpatient (CLI) | payer MEDICARE, SELFPAY ==
--- OUTSIDE RECORDS SUMMARY | 2024-03-11 01:01 | XMS_ITS | Encounter Summary ---
Author Organization [facility] Address [facility] [place] [address] Care Team Providers Care Welt Sole Layer Name Role Phone Sabine Garcia MD Primary Care Provider Encounter Details Date Type Department Care Team (Latest Contact Info) Description 04/16/2012 - 04/16/2012 11:59 PM EST Hospital Encounter Radiology Library at [facility] [place] [phone] Ana Curiel MD Discharge Disposition: Home Social [...] CT Spine (04/16/2012 12:00 AM EST) Narrative [facility] - 07/15/2017 3:57 PM EDT This exam is for storage only and is auto-finalizing. Ana Curiel MD IMG FILM LIBRARY O RDERABLES Performing Organization Address City/State/[facility] Co de Phone Number [place], [place] documented in this encounter Visit Diagnoses Not on filedocumented in this encounter Care Teams Welt Sole Layer Relationship Specialty Start Date End Date Sabine Garcia MD [address] [place] [address] PCP - General 01/15/10 07/13/14 documented as of this encounter
--- OUTSIDE RECORDS SUMMARY | 2024-03-11 01:01 | XMS_ITS | Clinical Summary ---
Author Organization [facility] Address [facility] [place] [address] Care Team Providers Care Field Observer Name Role Phone Shilpi Castañeda DEEDEE Primary Care Provider [phone] Allergies Active Allergy Reactions Criticality Noted Date [...] 2) 1994 Advance Directive 06/23/1999 Pneumoccocal Vaccine: 50+ (2 of 2 - PCV) 10/09/2007 10/08/2006 Bone Density Scan 2009 RSV Vaccine (1 - 1-dose 75+ series) 06/23/2019 Covid-19 Vaccine (1 - 2023- season) 2023 Influenza (Flu) vaccine (1 o f 1 - Influenza standard series) 10/25/2023 Care Teams Field Observer Relationship Specialty Start Date End Date Shilpi Castañeda APRN [address] [place], [place] [id number] PCP - General Internal Medicine 05/28/16
--- OUTSIDE RECORDS SUMMARY | 2024-03-11 01:01 | XMS_ITS | Encounter Summary ---
Author Organization [facility] [place] [address] Care Team Providers Care Supervisor Dental Laboratory Name Role Phone Hanna Castañedayce Ryan MARK Primary Care Provider [phone] Encounter Details Date Type Department Care Team (Latest Contact Info) Description 04/22/2019 12:00 PM EST - 04/22/2019 11:59 PM [facility] Hospital Encounter [place] [address] Adan Jernigan MD [address] [place] [address] Chest pain, unspecified type Discharge Disposition: Home [...] COMPLETE (04/22/2019 12:09 PM EST) EF 60 [employer] SYSTEM Anatomical Region Laterality Modality Other 04/22/2019 Narrative 04/22/2019 12:35 PM EST Procedure: ?Transthoracic Echocardiogram Patient: ?LILIAN Davison . ?(Age): 1945(73y) Med Rec#: ? [id number] ?Sex: ?F ? Site Loc: ? [place] ??Ht / Wt: ??167.64(cm)/69.4 Pt. Loc: ?BSA: ?1.78 Study Date: ?? 04/22/2019 ?Pt. Type: Inpatient Tape: ? Referring: VERITO Referring: [facility] (Diag Imaging) Referring: [facility](Med/Surg) Referring: [facility](Med Rec) Reading: Jose Alberto Burk ([id number]) Telesales Team Leader: TRAV Telesales Team Leader: TRAV Diagnosis: *Chest pain, unspecified (R07.9) BP: [...] Vmax ?0.75 ? m/sec ? MV deceleration rhup141.71 ? msec ? MV A-wave Vmax ?0.63 [...] ? Mid-Inferior ?Normal ? Mid-Inferoseptal ?Normal ? [place]-Septal ? Normal ? [place]-Anterior ? Normal ? [place]-Lateral ?Normal ? [place]-Inferior ? Normal ? [place]-Tip ?Normal ? This report has been electronically signed by: Jose Alberto Burk MD ? 04/22/2019 12:34:37 Images reviewed and interpretation verified [facility] Cardiac Ultrasound Laboratory Procedure Note Jose Alberto Burk MD - 04/22/2019 Procedure: Transthoracic Echocardiogram Patient: LILIAN Philip (Age): 1945(73y) Med Rec#: [id number] Sex: F Site Loc: [facility] Ht / Wt: 167.64(cm)/69.4 Pt. Loc: BSA: 1.78 Study Date: 04/22/2019 Pt. Type: Inpatient Tape: Referring: VERITO Referring: [facility] (Diag Imaging) Referring: [facility](Med/Surg) Referring: [facility](Med Rec) Reading: Jose Alberto Burk ([id number]) Telesales Team Leader: TRAV Telesales Team Leader: TRAV Diagnosis: *Chest pain, unspecified (R07.9) BP: [...] MV E-wave Vmax 0.75 m/sec MV deceleration uynn771.71 msec MV A-wave Vmax 0.63 m/sec MV [...] Normal Mid-Posterolateral Normal Mid-Inferior Normal Mid-Inferoseptal Normal [place]-Septal Normal [place]-Anterior Normal [place]-Lateral Normal [place]-Inferior Normal [place]-Tip Normal This report has been electronically signed by: Jose Alberto Burk MD 04/22/2019 12:34:37 Images reviewed and interpretation verified [facility] Cardiac Ultrasound Laboratory Adan Jernigan MD [employer] documented in this encounter Visit Diagnoses Diagnosis Chest pain, unspecified type documented in this encounter Care Teams Supervisor Dental Laboratory Relationship Specialty Start Date End Date Shilpi Castañeda, MAINTENANCE CRAFTSMAN [address] [place] [address] PCP - General Internal Medicine 05/28/16 documented as of this encounter
--- OUTSIDE RECORDS SUMMARY | 2024-03-11 01:01 | XMS_ITS | Encounter Summary ---
Author Organization [facility] [place] [address] Care Team Providers Care Procurement Buyer Name Role Phone Shilpi Castañeda APRN Primary Care Provider [phone] Encounter Details Date Type Department Care Team [...] on filedocumented in this encounter Care Teams Procurement Buyer Relationship Specialty Start Date End Date Shilpi Castañeda APRN [address] [place] [address] PCP - General Internal Medicine 05/28/16 documented as of this encounter
--- OUTSIDE RECORDS SUMMARY | 2024-03-11 01:01 | XMS_ITS | Encounter Summary ---
Author Organization [facility] Address [facility] [place] [address] Care Team Providers Care Sales Agent Casualty Insurance Name Role Phone Shilpi Castañeda APRN Primary Care Provider [phone] Reason for Visit * Reason Comments Blurred Vision * Consultation (Routine) - Closed Specialty Diagnoses / Procedures Referred By Contfabián t Referred To Contact Ophthalmology Diagnoses DRY AMD Procedures CONSULT, TEST & TREAT Shilpi Castañeda APRN [address] [place] [address] Ana Curiel MD [facility] [place] [address] Referral ID Status Reason Start Date Expiration Date V isits Requested Visits Authorized [id number] Closed Evaluate and Treat Connection Center 05/28/2016 05/28/2017 1 1 Encounter Details Date Type Department Care Team (Late st Contact Info) Description 07/15/2016 10:30 AM EDT Office [place] [address] Ana Curiel MD Nonexudative age-related macular degeneration [...] retina documented in this encounter Care Teams Sales Agent Casualty Insurance Relationship Specialty Start Date End Date Shilpi Castañeda, BOOKY [address] [place] [address] PCP - General Internal Medicine 05/28/16 documented as of this encounter
--- OUTSIDE RECORDS SUMMARY | 2024-03-11 01:01 | XMS_ITS | Encounter Summary ---
Author Organization [facility] Address [facility] [place] [address] Care Team Providers Care Carry Out Clerk And Shelf Stocker Name Role Phone Shilpi Castañeda APRN Primary Care Provider [phone] Reason for Visit * Reason Onset Date Comments Medication Refill 02/25/2022 Encounter Details Date Type Department Care Team (Late st Contact Info) Description 02/25/2022 Refill Dermatology at [facility] [address] [place] [address] Jose Ramon Castillo MD [facility] [address] [place] [address] Social History Tobacco Use Types Packs/Day Years [...] on filedocumented in this encounter Care Teams Carry Out Clerk And Shelf Stocker Relationship Specialty Start Date End Date Shilpi Castañeda APRN [address] [place] [address] PCP - General Internal Medicine 05/28/16 documented as of this encounter
--- OUTSIDE RECORDS SUMMARY | 2024-03-11 01:01 | XMS_ITS | Encounter Summary ---
Author Organization [facility] [place] [address] Care Team Providers Care Tumor Registrar Name Role Phone Shilpi Castañeda DEEDEE Primary Care Provider [phone] Reason for Visit * Reason Onset Date Comments Bumped Appointment 09/25/2020 Encounter Details Date Type Department Care Team (Late st Contact Info) Description 09/25/2020 Telephone [place] [address] Radha Moncada OD [facility] [place] [place] [address] Bumped Appointment Social History Tobacco Use Types [...] on filedocumented in this encounter Care Teams Tumor Registrar Relationship Specialty Start Date End Date Shilpi Castañeda APRN [address] [place] [address] PCP - General Internal Medicine 05/28/16 documented as of this encounter
--- OUTSIDE RECORDS SUMMARY | 2024-03-11 01:01 | XMS_ITS | Encounter Summary ---
Author Organization [facility] [place] [address] Care Team Providers Care Product Safety Compliance Leader Name Role Phone Shilpi Castañeda CONDUIT HELPER Primary Care Provider [phone] Reason for Visit * Reason Comments Skin Check Encounter Details Date Type Department Care Team (Late st Contact Info) Description 02/18/2019 2:00 PM EST Office Visit Dermatology at [facility] [address] [place] [address] Manny Harrington MD [facility] [address] [place] [place] [address] Longitudinal erythronychia; Multiple benign nevi; Notalgia paresthetica; [...] by: Manny Harrington MD Resident in Dermatology [facility] Patient discussed with staff irrigator sprinkling system: Carlo Wayne MD Section of Dermatology [facility] * Roge Wayne MD - 02/18/2019 2:00 PM EST I was the supervising physician working with dermatology resident Dr. Harrington in the dermatology clinic during this patient visit. The level of Resident supervision for this patient visit was indirect supervision with direct supervision immediately available. (definition: [facility] Policy Statement on raduate Medical Education, [...] keratosis documented in this encounter Care Teams Product Safety Compliance Leader Relationship Specialty Start Date End Date Shilpi Castañeda APRN [address] [place] [address] PCP - General Internal Medicine 05/28/16 documented as of this encounter
--- OUTSIDE RECORDS SUMMARY | 2024-03-11 01:01 | XMS_ITS | Encounter Summary ---
Author Organization [facility] [place] [address] Care Team Providers Care Manager Qa Name Role Phone Shilpi Castañeda DEEDEE Primary Care Provider [phone] Encounter Details Date Type Department Care Team (Late st Contact Info) Description 08/08/2020 10:00 AM EDT Office Visit Dermatology at [facility] [address] [place] [address] Jose Ramon Castillo MD [facility] [address] [place] [address] SK (seborrheic keratosis); Fay angioma; Longitudinal melanonychia; [...] relevant family history No SOCIAL HISTORY 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 year old. Patient returns to clinic today for full skin cancer screening. No specific skin concerns today. Last visit at [facility] Derm: 02/18/2019 Last visit with [...] FBSE, sooner if needed. []Note routed to litigation secretary [x]Recall has been placed in scheduling [...] signed by: Jose Ramon Castillo MD Dermatology [facility] documented in this encounter Plan of Treatment Not on file documented as of this encounter Visit Diagnoses Diagnosis SK (seborrheic keratosis) Other seborrheic keratosis Fay angioma Nevus, non-neoplastic Longitudinal melanonychia Other specified disease of nail Congenital nevus Benign neoplasm of skin, site unspecified documented in this encounter Care Teams Manager Qa Relationship Specialty Start Date End Date Shilpi Castañeda APRN [address] [place] [address] PCP - General Internal Medicine 05/28/16 documented as of this encounter
--- OUTSIDE RECORDS SUMMARY | 2024-03-11 01:01 | XMS_ITS | Encounter Summary ---
Author Organization [facility] Address [facility] [place] [address] Care Team Providers Care Supervisor Throwing Department Name Role Phone Shilpi Castañeda APRN Primary Care Provider [phone] Reason for Visit * Reason Comments Skin Lesion * Consultation (Routine) - Closed Specialty Diagnoses / Procedures Referred By Contac t Referred To Contact Dermatology Diagnoses Disorder of pigmentation, unspecified Other nail disorders PIGMENT CHANGE UNDER LEFT GREAT TOENAIL PLATE, POSSIBILITY OF MELANOMA Shilpi Castañeda, CHIEF FINANCIAL OFFICER [address] [place] [address] [facility] Dermatology [address] [place] [address] Referral ID Status Reason Start Date Expiration Date V isits Requested Visits Authorized [id number] Closed Consult, Test & Treat Connection Center 06/08/2018 06/08/2019 1 1 Encounter Details Date Type Department Care Team (Latest Contact Info) Description 07/13/2018 8:30 AM EDT Office Visit Dermatology at [facility] [address] [place] [address] Call, Manny Acevedo MD [facility] [address] [place] [address] Longitudinal erythronychia Social History Tobacco [...] about several years ago. was seen by full stack net developer, concerning and discussed nail biopsy. She denies [...] Manny Harrington MD Resident in Dermatology [facility] Patient seen in conjunction with staff carburetor mechanic: Vega Rivero MD Section of Dermatology [facility] * Vega Rivero MD - 07/13/2018 [...] erythronychia documented in this encounter Care Teams Supervisor Throwing Department Relationship Specialty Start Date End Date Shilpi Castañeda, CHIEF FINANCIAL OFFICER [address] [facility] [place] [address] PCP - General Internal Medicine 05/28/16 documented as of this encounter
--- OUTSIDE RECORDS SUMMARY | 2024-03-11 01:01 | XMS_ITS | Encounter Summary ---
Author Organization [facility] [place] [address] Care Team Providers Care Gm/Svp Global Publisher Business Name Role Phone Sabine Garcia MD Primary Care Provider [phone] Reason for Visit * Reason Comments Diabetes Mellitus Encounter Details Date Type Department Care Team (Latest Contact Info) Description 03/17/2012 11:30 AM EST Office [place] [address] Palomo Ingram MD [facility] [place] [address] DM w/o complication type II; Primary hypothyroidism [...] was attending a meeting and met a wire walker who suggested to her that she might [...] an herbal antianxiety med and sees an healthcare consultant Lost 30 lbs Hopes to lose 10 [...] lipid panel: Dec 2011 LDL 78 regular litigation paralegal: has seen one in the past for [...] Free T4 1.03 0.90 - 1.60 ng/dL [facility] Blood specimen (specimen) 03/17/2012 12:35 PM EST 03/17/2012 12:52 PM EST Narrative Resulting Agency Comment Spec In Lab Palomo Ingram MD CHEMISTRY ORDERABLES [facility] * (ABNORMAL) LDL Cholesterol, Direct (03/17/2012 12:35 PM EST) LDL Cholesterol, Direct 113(H) <=99 mg/dL [facility] Comment: The National Cholesterol Education Program (NCEP) has set the following guidelines for LDL Cholesterol: Reference range: ?? Optimal: ?<100 mg/dL ?? Near Optimal/Above Optimal: ?? 100-129 mg/dL ?? Borderline high: ?130-159 mg/dL ?? High: ? 160-189 mg/dL ?? Very high: ?>rc=414 mg/dL CHARLA 2001: 285(89):0982-5461 Blood specimen (specimen) 03/17/2012 12:35 PM EST 03/17/2012 12:52 PM EST Narrative Resulting Agency Comment Spec In Lab Palomo Ingram MD CHEMISTRY ORDERABLES [facility] * Hemoglobin A1c (03/17/2012 12:35 PM EST) Hemoglobin A1c 6.1 4.3 - 6.1 % [facility] Estimated Average Glucose 128 mg/dL [facility] Comment: eAG equivalents for HbA1c percentages: HbA1c(%) [...] into estimated average glucose values. ??Diabetes Care 2008:31(8):3293-0350. Blood specimen (specimen) 03/17/2012 12:35 PM EST 03/17/2012 12:52 PM EST Narrative Resulting Agency Comment Spec In Lab Palomo Ingram MD CHEMISTRY ORDERABLES Performing Organization Address [facility] de Phone Number JED GORMANLifeScribeKARLI * TSH (03/17/2012 12:35 PM EST) Thyroid Stimulating Hormone 2.49 0.27 - 4.20 mcIU/mL CERALBA GORMANENNIUM Blood specimen (specimen) 03/17/2012 12:35 PM EST 03/17/2012 12:52 PM EST Narrative Resulting Agency Comment Spec In Lab Palomo Ingram MD CHEMISTRY ORDERABLES Performing Organization Address [facility] de Phone Number JED GORMANLifeScribeKARLI documented in this encounter Visit Diagnoses Diagnosis Type II or unspecified type diabetes mellitus without mention of complication, not stated as uncontrolled Primary hypothyroidism Unspecified hypothyroidism documented in this encounter Care Teams Gm/Svp Global Publisher Business Relationship Specialty Start Date End Date Sabine Garcia MD [address] [place] [address] PCP - General 01/15/10 07/13/14 documented as of this encounter
--- OUTSIDE RECORDS SUMMARY | 2024-03-11 01:01 | XMS_ITS | Encounter Summary ---
Author Organization [facility] [place] [address] Care Team Providers Care Business Continuity Analyst Name Role Phone Kassi Richard MD Primary Care Provider [phone] Reason for Visit * Reason Comments Hematuria Encounter Details Date Type Department Care Team (Latest Contact Info) Description 07/14/2014 2:40 PM EDT Procedure [place] [address] Carrie Brown MD [facility] [place] [address] History of bladder cancer Discharge Disposition: Home [...] and cola. You do not need to pfonol45 ounces of water today. Urination: You will likely have a small amount of blood in your urine for the next several days. This is normal; however, if you are passing large amounts of blood clots or are unable to void please call our office at [phone] before 5PM or [phone] after hours. Please call if: * you have copious blood in your urine * fevers greater than 101.3 F * you are unable to void The number for questions is [phone] before 5 PM weekdays and [phone] after 5 PM and weekends. Follow-up: documented [...] bladder documented in this encounter Care Teams Business Continuity Analyst Relationship Specialty Start Date End Date Kassi Richard MD [address] [place] [address] PCP - General 07/14/14 05/27/16 documented as of this encounter
--- OUTSIDE RECORDS SUMMARY | 2024-03-11 01:01 | XMS_ITS | Encounter Summary ---
Author Organization [facility] [place] [address] Care Team Providers Care Furniture Sales Associate Name Role Phone Shilpi Castañeda DEEDEE Primary Care Provider [phone] Encounter Details Date Type Department Care Team (Late st Contact Info) Description 12/03/2023 2:15 PM EDT Office Visit Dermatology at 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 I performed the above scribed service and agree with the accuracy of the documentation in this encounter. Reviewed and signed by: Jose Ramon Castillo MD Dermatology [facility] documented in this encounter Plan of Treatment [...] non-neoplastic documented in this encounter Care Teams Furniture Sales Associate Relationship Specialty Start Date End Date Shilpi Castañeda, DEEDEE [address] [place] [address] PCP - General Internal Medicine 05/28/16 documented as of this encounter
--- OUTSIDE RECORDS SUMMARY | 2024-03-11 01:01 | XMS_ITS | Encounter Summary ---
Author Organization [facility] [place] [address] Care Team Providers Care Renal Case Manager Name Role Phone Shilpi Castañeda APRN Primary Care Provider [phone] Encounter Details Date Type Department Care Team (Late st Contact Info) Description 09/23/2022 2:15 PM EDT Office Visit Dermatology at [facility] [address] [place] [address] Jose Ramon Castillo MD [facility] [address] [place] [address] Seborrheic keratosis; Fay angioma; Multiple benign nevi [...] this encounter Progress Notes * César Gallegos, [facility] - 09/23/2022 2:15 PM EDT Images from [...] family history No SOCIAL HISTORY 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 Patient returns to clinic today for a 1 yearFSE. Previous [facility] patient. In early February 2022, patient started [...] 1 year for FSE []Note routed to bookkeeping clerk [x]Recall placed in scheduling system []Appointment scheduled at checkout Scribe attestation: SRIRAM Sanchez has performed the documentation for this encounter in thepresence of and acting as a scribe for Jose Ramon Castillo MD. I performed the above scribed service and agree with the accuracy of the documentation in this encounter. Reviewed and signed by: Jose Ramon Castillo MD Dermatology [facility] documented in this encounter Plan of Treatment Not on file documented as of this encounter Visit Diagnoses Diagnosis Seborrheic keratosis Other seborrheic keratosis Fay angioma Nevus, non-neoplastic Multiple benign nevi of upper extremity, lower extremity, and trunk Lentigines Other dyschromia Seborrheic dermatitis Seborrheic dermatitis, unspecified documented in this encounter Care Teams Renal Case Manager Relationship Specialty Start Date End Date Shilpi Castañeda APRN [address] [place] [address] PCP - General Internal Medicine 05/28/16 documented as of this encounter
--- OUTSIDE RECORDS SUMMARY | 2024-03-11 01:01 | XMS_ITS | Encounter Summary ---
Author Organization [facility] Address [facility] [place] [address] Care Team Providers Care Opera Singer Name Role Phone Hanna Castañedayce Ryan MARK Primary Care Provider [phone] Encounter Details Date Type Department Care Team (Latest Contact Info) Description 06/02/2017 - 06/02/2017 11:59 PM EDT Hospital Encounter Radiology Library at [facility] [place] [address] Ana Curiel MD Discharge Disposition: Home Social [...] MR Head (06/02/2017 12:00 AM EDT) Narrative [facility] - 07/15/2017 3:58 PM EDT This exam is for storage only and is auto-finalizing. Ana Curiel MD IMG FILM LIBRARY O RDERABLES [place], [place] documented in this encounter Visit Diagnoses Not on filedocumented in this encounter Care Teams Opera Singer Relationship Specialty Start Date End Date Shilpi Castañeda APRN [address] [place] [address] PCP - General Internal Medicine 05/28/16 documented as of this encounter
--- OUTSIDE RECORDS SUMMARY | 2024-03-11 01:01 | XMS_ITS | Referral Summary ---
Author Organization [facility] Address [address] [place] [address] Care Team Providers Care Valve Liner Rubber Name Role Phone Rylee Marlow MD Primary Care Provider [phone] Social History Tobacco Use Types Packs/Day Years Used Date Smoking Tobacco: Never Assessed Comments Unknown Sex and Gender Information Value Date Recorded Sex Assigned at Not on file Legal Sex Female 18:41 EST Gender Identity Not on file Sexual Orientation Not on file Plan of Treatment Not on file Care Teams Valve Liner Rubber Relationship Specialty Start Date End Date Rylee Marlow MD [address] [place] [address] PCP - General 11/09/12
--- OUTSIDE RECORDS SUMMARY | 2024-03-11 01:01 | XMS_ITS | Encounter Summary ---
Author Organization [facility] Address [facility] [place] [address] Care Team Providers Care Research & Analytics Manager Name Role Phone Shilpi Castañeda APRN Primary Care Provider [phone] Encounter Details Date Type Department Care Team (Late st Contact Info) Description 09/04/2022 Telephone Dermatology at [facility] [address] [place] [address] Jose Ramon Castillo MD [facility] [address] [place] [address] Social History Tobacco Use Types Packs/Day Years [...] on filedocumented in this encounter Care Teams Research & Analytics Manager Relationship Specialty Start Date End Date Shilpi Castañeda, DROP HAMMER SET UP OPERATOR [address] [place] [address] PCP - General Internal Medicine 05/28/16 documented as of this encounter
--- OUTSIDE RECORDS SUMMARY | 2024-03-11 01:01 | XMS_ITS | Encounter Summary ---
Author Organization [facility] [place] [address] Care Team Providers Care Claims Adjustor Name Role Phone Shilpi Castañeda DEEDEE Primary Care Provider [phone] Encounter Details Date Type Department Care Team (Late st Contact Info) Description 12/18/2020 Telephone [place] [address] Radha Moncada OD [facility] [place] [address] Social History Tobacco Use Types Packs/Day Years [...] with DM. She can be reached at [phone] after 2pm tomorrow (and it is ok to leave a message if she does not answer). documented in this encounter Plan of Treatment Not on file documented as of this encounter Visit Diagnoses Not on filedocumented in this encounter Care Teams Claims Adjustor Relationship Specialty Start Date End Date Shilpi Castañeda APRN [address] [place] [address] PCP - General Internal Medicine 05/28/16 documented as of this encounter
--- OUTSIDE RECORDS SUMMARY | 2024-03-11 01:01 | XMS_ITS | Encounter Summary ---
Author Organization [facility] Address [facility] [place] [address] Care Team Providers Care Vice President Marketing & Development Name Role Phone Shilpi Castañeda APRN Primary Care Provider [phone] Reason for Visit * Consultation (Routine) - Closed Specialty Diagnoses / Procedures Referred By Anil more Referred To Contact Dermatology Diagnoses Pruritus Shilpi Castañeda APRN [address] [place] [address] [facility] Dermatology [address] [place] [address] Referral ID Status Reason Start Date Expiration Date V isits Requested Visits Authorized [id number] Closed Consult, Test & Treat PCP Updated and/or Approved 06/04/2021 06/04/2022 6 6 Encounter Details Date Type Department Care Team (Late st Contact Info) Description 09/19/2021 11:15 AM EDT Office Visit Dermatology at [facility] [address] [place] [address] Jose Ramon Castillo MD [facility] [address] [place] [address] Notalgia paresthetica; Seborrheic keratoses; Lentigines; Fay angioma; [...] relevant family history No SOCIAL HISTORY 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 [...] 1 year for FSE []Note routed to psychiatric secretary [x]Recall placed in scheduling system []Appointment scheduled at checkout Scribe attestation: César Gallegos has performed the documentation for this encounter in the presence of and acting as a scribe for Jose Ramon Castillo MD. I performed the above scribed service and agree with the accuracy of the documentation in this encounter. Reviewed and signed by: Jose Ramon Castillo MD Dermatology [facility] documented in this encounter Plan of [...] glands documented in this encounter Care Teams Vice President Marketing & Development Relationship Specialty Start Date End Date Shilpi Castañeda APRN [address] [place] [address] PCP - General Internal Medicine 05/28/16 documented as of this encounter
--- OUTSIDE RECORDS SUMMARY | 2024-03-11 01:01 | XMS_ITS | Encounter Summary ---
Author Organization [facility] Address [address] [place] [address] Care Team Providers Care Marine Equipment Preservation Inspector Name Role Phone Rylee Marlow MD Primary Care Provider [phone] Encounter Details Date Type Department Care Team (Late st Contact Info) Description 04/17/2023 Lab Requisition [facility] Pathology & Laboratory Medicine - [address] [address] Outr Resulting Lab, Provider Social History Tobacco [...] Salmonella PCR Negative Negative 04/18/2023 10:44 EST [facility] Shigella/Enteroin vasive E. coli Negative Negative 04/18/2023 10:44 EST [facility] HN LAB CAMPYLOBACTER PCR Positive(A) Negative 04/18/2023 10:44 EST [facility] Shiga Toxin PCR Negative Negative 10:44 EST [facility] Feces SPECIMEN FROM RECTUM / Unknown 04/16/2023 22:00 EST 04/17/2023 21:18 EST Provider Outr Resulting Lab MICROBIOLOGY - GENER AL ORDERABLES Final Result Performing Organization Address City/[facility] Co de Phone Number [facility] [address] [place] [address] * OVA/PARASITE EXAM (04/16/2023 22:00 EST) Parasite No ova and parasites seen. 04/20/2023 15:05 EST [facility] Feces SPECIMEN FROM RECTUM / Unknown 04/16/2023 22:00 EST 04/17/2023 21:18 EST Narrative [facility] - 04/20/2023 15:05 EST (If Cryptosporidium, Cyclospora, or Microsporidium are suspected, specific tests must be requested.) Single negative specimen does not rule out the possibility of a parasitic infection. Provider Outr Resulting Lab MICROBIOLOGY - GENER AL ORDERABLES Final Result Performing Organization Address [facility] Co de Phone Number [facility] [address] [place] [address] documented in this encounter Visit Diagnoses Not on filedocumented in this encounter Care Teams Marine Equipment Preservation Inspector Relationship Specialty Start Date End Date Rylee Marlow MD [address] [place] [address] PCP - General 11/09/12 documented as of this encounter
--- OUTSIDE RECORDS SUMMARY | 2024-03-11 01:01 | XMS_ITS | Encounter Summary ---
Author Organization [facility] Address [facility] [place] [address] Care Team Providers Care County Home Demonstrator Name Role Phone Shilpi Castañeda APRN Primary Care Provider [phone] Reason for Referral * Consultation (Routine) - Closed Specialty Diagnoses / Procedures Referred By Anil more Referred To Contact Dermatology Diagnoses Pruritus Shilpi Castañeda APRN [address] [place] [address] [facility] Dermatology [address] [place] [address] Referral ID Status Reason Start Date Expiration Date V isits Requested Visits Authorized [id number] Closed Consult, Test & Treat PCP Updated and/or Approved 06/04/2021 06/04/2022 6 6 Encounter Details Date Type Department Care Team (Late st Contact Info) Description 06/04/2021 Transcribe Orders eDH Incoming Referrals [phone] Shilpi Castañeda EGG SETTER [address] [place], [place] [id number] Pruritus Social History Tobacco Use Types Packs/Day [...] disorder documented in this encounter Care Teams County Home Demonstrator Relationship Specialty Start Date End Date Shilpi Castañeda APRN [address] [place] [address] PCP - General Internal Medicine 05/28/16 documented as of this encounter
--- OUTSIDE RECORDS SUMMARY | 2024-03-11 01:01 | XMS_ITS | Encounter Summary ---
Author Organization [facility] [place] [address] Care Team Providers Care Fisher Terrapin Name Role Phone Kassi Richard MD Primary Care Provider [phone] Reason for Visit * Reason Comments Bladder Cancer Encounter Details Date Type Department Care Team (Late st Contact Info) Description 01/26/2015 1:40 PM EST [place] [address] Carrie Brown MD [facility] [place] [address] Gross hematuria (Primary Dx); Malignant neoplasm of [...] to void please call our office at [phone] before 5PM or [phone] after hours. Please call if: * you have copious blood in your urine * fevers greater than 101.3 F * you are unable to void The number for questions is [phone] before 5 PM weekdays and [phone] after 5 PM and weekends. Follow-up: With [...] bladder documented in this encounter Care Teams Fisher Terrapin Relationship Specialty Start Date End Date Kassi Richard MD [address] [place] [address] PCP - General 07/14/14 05/27/16 documented as of this encounter
--- OUTSIDE RECORDS SUMMARY | 2024-03-11 01:01 | XMS_ITS | Encounter Summary ---
[place] [address] Care Team Providers Care Rigging Loft Repairer Name Role Phone Shilpi Castañeda APRN Primary Care Provider [phone] Encounter Details Date Type Department Care Team [...] on filedocumented in this encounter Care Teams Rigging Loft Repairer Relationship Specialty Start Date End Date Shilpi Castañeda APRN [address] [place] [address] PCP - General Internal Medicine 05/28/16 documented as of this encounter
--- OUTSIDE RECORDS SUMMARY | 2024-03-11 01:01 | XMS_ITS | Encounter Summary ---
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
--- OUTSIDE RECORDS SUMMARY | 2024-03-11 01:01 | XMS_ITS | Encounter Summary ---
[place] [address] Care Team Providers Care Citrix Engineer Name Role Phone Shilpi Castañeda APRN Primary Care Provider [phone] Reason for Visit * Consultation (Routine) - Closed Specialty Diagnoses / Procedures Referred By Anil t Referred To Contact Allergy Diagnoses Other allergy status, other than to drugs and biological substances Allergy to other foods Shilpi Castañeda APRN [address] [place] [address] [facility] Allergy [address] [place] [phone] Referral ID Status Reason Start Date Expiration Date V isits Requested Visits Authorized [id number] Closed Consult, Test & Treat Connection Center PCP Updated and/or Approved 06/14/2020 06/14/2021 6 6 Encounter Details Date Type Department Care Team (Late st Contact Info) Description 01/31/2021 1:00 PM EST [place] [address] Reva Canada MD Adverse food [...] for your test results. You may call [phone] or send a message through the [facility] portal. documented in this encounter Progress [...] rash. No facial or tongue swelling. Her fertilizing machine operator told her it may be histamine [...] up from providers. She has seen a telecommunications network engineer/textile finisher in the past which was not helpful. 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 Estefanía Preez MD Internal Medicine, PGY2 Orders Placed This [...] 2:53 PM EST) Tryptase 4.2 <=8.4 ng/mL [facility] Comment: Total tryptase concentrations that are persistently greater than 20 ng/mL may be consistent with systemic mastocytosis. Blood 01/31/2021 2:53 PM EST 02/01/2021 7:37 AM EST Narrative Resulting Agency Comment Spec In Lab Reva Canada MD CHEMISTRY ORDERABLES Performing Organization Address City/State/[facility] Co de Phone Number [facility] [place] [address] documented in this encounter Visit Diagnoses Diagnosis Adverse food reaction, initial encounter Diarrhea, unspecified type documented in this encounter Care Teams Citrix Engineer Relationship Specialty Start Date End Date Shilpi Castañeda APRN [address] [place] [address] PCP - General Internal Medicine 05/28/16 documented as of this encounter
--- OUTSIDE RECORDS SUMMARY | 2024-03-11 01:01 | XMS_ITS | Encounter Summary ---
Author Organization [facility] [place] [address] Care Team Providers Care Leadite Worker Name Role Phone Shilpi Castañeda APRN Primary Care Provider [phone] Reason for Visit * Reason Comments Blurred Vision * Consultation (Routine) - Closed Specialty Diagnoses / Procedures Referred By Contfabián t Referred To Contact Ophthalmology Diagnoses Type 2 diabetes mellitus without complications Unspecified macular degeneration Shilpi Castañeda APRN [address] [place] [address] Radha Moncada, MILI [facility] [place] [address] Referral ID Status Reason Start Date Expiration Date V isits Requested Visits Authorized [id number] Closed Consult, Test & Treat Connection Center PCP Updated and/or Approved 06/12/2020 06/12/2021 6 6 Encounter Details Date Type Department Care Team (Late st Contact Info) Description 10/18/2020 9:00 AM EDT Office [place] [address] Radha Moncada OD [facility] [place] [address] Diabetic eye exam; Combined forms of age-related [...] Final Rx Eyeglass Final Rx Sphere Cylinder [place] Dist [place] Add Near VA Right +3.25 [...] presbyopia documented in this encounter Care Teams Leadite Worker Relationship Specialty Start Date End Date Shilpi Castañeda, RECEPTION SPECIALIST [address] [place] [address] PCP - General Internal Medicine 05/28/16 documented as of this encounter
--- OUTSIDE RECORDS SUMMARY | 2024-03-11 01:01 | XMS_ITS | Encounter Summary ---
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
--- OUTSIDE RECORDS SUMMARY | 2024-03-11 01:01 | XMS_ITS | Encounter Summary ---
Author Organization [facility] [place] [address] Care Team Providers Care Net Programmer Analyst Name Role Phone Shilpi Castañeda DEEDEE Primary Care Provider [phone] Reason for Visit * Reason Onset Date Comments Other 10/18/2020 Concerns for dil ated pupils Encounter Details Date Type Department Care Team (Late st Contact Info) Description 10/18/2020 [place] [address] Radha Moncada, MILI [facility] [place] [address] Other (Concerns for dilated pupils) Social History [...] 01/10/21 Called and spoke with pt to [facility] an appt with Dr Tejeda on 01/10/21 for: Next Avail Retina Evalfor: Choroidal nevus. Reviewed location, duration, recommendation of a national van truck driver, that eyes are dilated for [...] on filedocumented in this encounter Care Teams Net Programmer Analyst Relationship Specialty Start Date End Date Shilpi Castañeda APRN [address] [place] [address] PCP - General Internal Medicine 05/28/16 documented as of this encounter
--- OUTSIDE RECORDS SUMMARY | 2024-03-11 01:01 | XMS_ITS | Clinical Summary ---
Author Organization [facility] Address [address] [place] [address] Care Team Providers Care Head Of Loss Prevention Name Role Phone Rylee Marlow MD Primary Care Provider [phone] Social History Tobacco Use Types Packs/Day Years [...] COVID-19 Vaccine ( season) 2023 Care Teams Head Of Loss Prevention Relationship Specialty Start Date End Date Rylee Marlow MD [address] [place] [address] PCP - General 11/09/12
--- OUTSIDE RECORDS SUMMARY | 2024-03-11 01:01 | XMS_ITS | Encounter Summary ---
Author Organization [facility] Address [facility] [place] [address] Care Team Providers Care Yarn Packer Name Role Phone Shilpi Castañeda DEEDEE Primary Care Provider [phone] Encounter Details Date Type Department Care Team (Late st Contact Info) Description 02/20/2022 Telephone Dermatology at [facility] [address] [place] [address] Jose Ramon Castillo MD [facility] [address] [place] [address] Social History Tobacco Use Types Packs/Day Years [...] something stronger to use. Call the pt [phone]. The pharmacy she uses is [facility] documented in this encounter Plan of Treatment Not on file documented as of this encounter Visit Diagnoses Not on filedocumented in this encounter Care Teams Yarn Packer Relationship Specialty Start Date End Date Shilpi Castañeda APRN [address] [place] [address] PCP - General Internal Medicine 05/28/16 documented as of this encounter
--- OUTSIDE RECORDS SUMMARY | 2024-03-11 01:01 | XMS_ITS | Encounter Summary ---
Author Organization [facility] [place] [address] Care Team Providers Care Elastic Yarn Twister Name Role Phone Shilpi Castañeda APRN Primary Care Provider [phone] Encounter Details Date Type Department Care Team (Late st Contact Info) Description 09/25/2021 Telephone [place] [address] Anastacio Tejeda MD Social History Tobacco Use [...] on filedocumented in this encounter Care Teams Elastic Yarn Twister Relationship Specialty Start Date End Date Shilpi Castañeda APRN [address] [place] [address] PCP - General Internal Medicine 05/28/16 documented as of this encounter
--- OUTSIDE RECORDS SUMMARY | 2024-03-11 01:02 | XMS_ITS | Encounter Summary ---
Author Organization [facility] Address [address] [place] [address] Care Team Providers Care Prosthetic Makeup Designer Name Role Phone Sabine [place] MD Primary Care Provider [phone] Encounter Details Date Type Department Care Team (Late st Contact Info) Description 02/25/2011 Results Only [facility] [phone] Briana Mendez MD [address] [address] Social History Tobacco Use Types [...] been reviewed at intradepartmental consultation conference. (Dr. Jordan)/[facility] Document reviewed and electronically signed by: KIRSTEN [...] entirely submitted as (A1) and (A2). (Samantha Salazar)/[facility] End of Report [facility] 02/25/2011 02/25/2011 9:5 0 EST us Briana Mendez MD PATHOLOGY ORDERABLES Final Re sult [facility] [address] [place] [address] * CYTOPATHOLOGY (02/25/2011 0:00 EST) Pathologist [facility] Pathology Report: CYTOPATHOLOGY REPORT Reports generated [...] see the concurrent surgical biopsy ([id number]). ??(Dr. Johnson)/[facility] Document reviewed and electronically signed [...] ORDERABLES Final Re sult Performing Organization Address City/State/[facility] Co de Phone Number [facility] [address] [place] [address] documented in this encounter Visit Diagnoses Not on filedocumented in this encounter Care Teams Prosthetic Makeup Designer Relationship Specialty Start Date End Date Sabine Sherwood MD [address] [place] [phone] PCP - General 10/10/10 9 documented as of this encounter
--- OUTSIDE RECORDS SUMMARY | 2024-03-11 01:02 | XMS_ITS | Encounter Summary ---
Author Organization [facility] Address [address] [place] [address] Care Team Providers Care Cork Pressing Machine Operator Name Role Phone Sabine Sherwood MD Primary Care Provider [phone] Encounter Details Date Type Department Care Team (Late st Contact Info) Description 11/11/2011 Results Only [facility] [phone] Briana Mendez MD [address] [address] Social History Tobacco Use Types [...] ? AMY QUINTANA ? Accession #: ? [id number] : ? 1945 (Age: 66) ??F ?Collect [...] Final Re sult [facility] [address] [place] [address] documented in this encounter Visit Diagnoses Not on filedocumented in this encounter Care Teams Cork Pressing Machine Operator Relationship Specialty Start Date End Date Sabine Sherwood MD [address] [place] [phone] PCP - General 10/10/10 11/08/12 documented as of this encounter
--- OUTSIDE RECORDS SUMMARY | 2024-03-11 01:02 | XMS_ITS | Encounter Summary ---
Author Organization [facility] Address [address] [place] [address] Care Team Providers Care Jig And Fixture Repairer Name Role Phone Sabine Sherwood MD Primary Care Provider [phone] Encounter Details Date Type Department Care Team (Late st Contact Info) Description 10/24/2010 Results Only [facility] [phone] Briana Tomlin MD [address] [address] Social History Tobacco Use Types [...] TACKHOWE, AMY L ? Accession #: ? [id number] ? : ? 1945 (Age: 65) ??F [...] with selected slides from the prior case ([id number]), this ?? case has been reviewed in [...] Amy and bladder tumor are ?? multiple tsout-licea soft tissue fragments measuring 2.5 x 2.0 [...] Final Re sult [facility] [address] [place] [address] documented in this encounter Visit Diagnoses Not on filedocumented in this encounter Care Teams Jig And Fixture Repairer Relationship Specialty Start Date End Date Sabine Sherwood MD [address] [place] [phone] PCP - General 10/10/10 11/08/12 documented as of this encounter
--- OUTSIDE RECORDS SUMMARY | 2024-03-11 01:02 | XMS_ITS | Encounter Summary ---
Author Organization [facility] Address [address] [place] [address] Care Team Providers Care Brass Chaser Name Role Phone Unavailable Primary Care Provider Unavailabl e Encounter Details Date Type Department Care Team (Late st Contact Info) Description 12/28/2006 Results Only [facility] conversion [address] [place] [address] Marzena Fountain, ARASELI [address] [place] [address] Social History Tobacco Use Types [...] ? AMY QUINTANA ? Accession #: ? [id number] : ? 1945 (Age: 61) ??F ?Collect Date: ? 12/28/2006 Location: ? [facility] ? Receive Date: ? 12/30/2006 Provider: ?MARZENA FOUNTAIN POINTER HELPER Copy to: ? Specimen/Source: ?ThinPrep Pap Test, Cervix/Endocervix, processed on judo ThinPrep Imaging System, with manual evaluation Last Menstrual Period: ? 1721-0826 Hormonal/Contracep tive Status: ? Yes: E-String (Vaginal) [...] ORDERABLES Final Res ult [facility] [address] [place] [address] documented in this encounter Visit Diagnoses Not on filedocumented in this encounter
--- OUTSIDE RECORDS SUMMARY | 2024-03-11 01:02 | XMS_ITS | Encounter Summary ---
Author Organization [facility] Address [address] [place] [address] Care Team Providers Care Shot Polisher Name Role Phone Unavailable Primary Care Provider Unavailabl e Encounter Details Date Type Department Care Team (Late st Contact Info) Description 01/03/2008 Before [facility] Converted Visit ([facility]) [facility] conversion [address] [place] [address] Marzena Fountain, ARASELI [address] [place] [address] Social History Tobacco Use Types [...] ? AMY QUINTANA ? Accession #: ? [id number] ? : ? 1945 (Age: 62) ??F ?Collect Date: ? 01/03/2008 ? Location: ? [facility] ? Receive Date: ? 01/05/2008 ? Provider: ?MARZENA FOUNTAIN CLIENT MANAGER ? Copy to: ? Specimen/Source: ?Pap [...] [facility] 01/03/2008 01/05/2008 us Marzena Fountain CLIENT MANAGER PATHOLOGY ORDERABLES Final Res ult [facility] [address] [place] [address] documented in this encounter Visit Diagnoses Not on filedocumented in this encounter
--- OUTSIDE RECORDS SUMMARY | 2024-03-11 01:02 | XMS_ITS | Encounter Summary ---
Author Organization [facility] Address [address] [place] [address] Care Team Providers Care Rigger Third Name Role Phone Emma Francis MD Primary Care Provide r Unavailable Encounter Details Date Type Department Care Team (Late st Contact Info) Description 10/08/2010 Results Only [facility] [phone] Briana Tomlin MD [address] [facility] [address] [place] [id number] Social History Tobacco Use Types Packs/Day [...] TACKHOWE, AMY L ? Accession #: ? [id number] ? : ? 1945 (Age: 65) ??F [...] ? Muscularis propria absent. ? Comment: ? Scale Model Maker sections of this case have been reviewed [...] Gross Description: ? Received in formalin labelled Rg, Amy and #1 bladder tumor is a [...] Final Re sult [facility] [address] [place] [address] documented in this encounter Visit Diagnoses Not on filedocumented in this encounter Care Teams Rigger Third Relationship Specialty Start Date End Date Emma Francis MD PCP - General 10/04/1009/23 documented as of this encounter
--- OUTSIDE RECORDS SUMMARY | 2024-03-11 01:02 | XMS_ITS | Encounter Summary ---
Author Organization [facility] Address [address] [place] [address] Care Team Providers Care Physician Industrial Name Role Phone Unavailable Primary Care Provider Unavailabl e Encounter Details Date Type Department Care Team (Late st Contact Info) Description 10/02/2010 Results Only [facility] [phone] Briana Mendez MD [address] [facility] [address] [place] [address] Social History Tobacco Use Types [...] ? AMY QUINTANA ? Accession #: ? [id number] ? : ? 1945 (Age: 65) ??F ?Collect Date: ? 10/02/2010 ? Location: ? [facility] ? Receive Date: ? 10/03/2010 ? Provider: ? BRIANA MENDEZ MD ? Copy to: ?AMINA AKELA MD ? CYTOLOGIC DIAGNOSIS: ? Urine, voided, [...] and electronically signed by: ? [facility] ? Report Date: ??10/03/2010 16:47 ? By [...] ORDERABLES Final Re sult [facility] [address] [place] [address] documented in this encounter Visit Diagnoses Not on filedocumented in this encounter
--- OUTSIDE RECORDS SUMMARY | 2024-03-11 01:02 | XMS_ITS | Encounter Summary ---
Author Organization [facility] Address [address] [place] [address] Care Team Providers Care Child Development Associate Teacher Name Role Phone Unavailable Primary Care Provider Unavailabl e Encounter Details Date Type Department Care Team (Late st Contact Info) Description 01/15/2009 Orders Only [facility] - [facility] [address] [place] [address] Marzena Fountain NP [address] [place] [address] Social History Tobacco Use Types [...] EST 01/25/2009 11:14 EST us Marzena Fountain ENERGY ADVISOR MICROBIOLOGY - GENERAL ORDERAB LES Final Result [facility] [address] [address] * CYTOPATHOLOGY (01/15/2009 0:00 EST) Pathology Report: CYTOPATHOLOGY REPORT ? Reports generated via electronic interface contain original data; ? however they are lacking the format of the original report. ? Caution should be taken when reading/interpreti ng unformatted reports. ? Name: ? AMY WEST ? Accession #: ? [id number] ? : ? 1945 (Age: 63) ??F ?Collect Date: ? 01/15/2009 ? Location: ? [facility] ? Receive Date: ? 01/17/2009 ? Provider: ?MARZENA FOUNTAIN ENERGY ADVISOR ? Copy to: ? Specimen/Source: ?Pap Test, [...] ORDERABLES Final Res ult Performing Organization Address City/State/[facility] Co de Phone Number [facility] [address] [place] [address] documented in this encounter Visit Diagnoses Not on filedocumented in this encounter
--- OUTSIDE RECORDS SUMMARY | 2024-03-11 01:02 | XMS_ITS | Encounter Summary ---
Author Organization [facility] Address [address] [place] [address] Care Team Providers Care Veneer Clipper Helper Name Role Phone Sabine Garcia MD Primary Care Provider [phone] Encounter Details Date Type Department Care Team (Late st Contact Info) Description 11/05/2012 Results Only [facility] [phone] Briana Mendez MD [address] [address] Social History Tobacco Use Types [...] ? AMY QUINTANA ? Accession #: ? [id number] : ? 1945 (Age: 67) ??F ?Collect [...] Final Re sult [facility] [address] [place] [address] documented in this encounter Visit Diagnoses Not on filedocumented in this encounter Care Teams Veneer Clipper Helper Relationship Specialty Start Date End Date Sabine Garcia MD [address] [place] [id number] PCP - General 10/10/10 11/08/12 documented as of this encounter
[2024-03-11 08:10] LABS: ALT 30 U/L (14-59); AST 23 U/L (15-37); Alkaline Phosphatase 78 U/L (46-116); Anion Gap 9.7 mmol/L (3-11); BUN 13 mg/dL (7-18); Bilirubin, Direct 0.1 mg/dL (0.0-0.2); Bilirubin, Total 0.47 mg/dL (0.2-1.0); CO2 30.3 mmol/L (21.0-32.0); CREATININE 0.9 mg/dL (0.55-1.02); Calcium 9.6 mg/dL (8.5-10.1); Calculated LDL 114 mg/dL (<100); Chloride 102 mmol/L (98-107); Cholesterol 198 mg/dL (<200); Estimated GFR 65.03 (mL/min/1.73m2); Glucose 151 mg/dL (74-106); HDL Cholesterol 71 mg/dL (40-60); Potassium 3.5 mmol/L (3.5-5.1); Sodium 142 mmol/L (136-145); TSH (W/Ref FT4) 6.77 uIU/mL (0.36-3.74); Total Protein 8.1 g/dL (6.4-8.2); Triglyceride 68 mg/dL (<150)
[2024-03-11 08:43] LABS: FREE T4 0.81 ng/dL (0.76-1.46)
[2024-03-13 12:22] LABS: Fructosamine 301 mcmol/L (200 - 285)
== END 2024-03-11 01:00 | disposition home or self-care (01) ==
LOC: LBO 00:59
PROVIDERS: Student in an Organized Health Care Education/Training Program; PCP Nurse Practitioner; Visit Provider Nurse Practitioner
DX: E06.3 Autoimmune thyroiditis (principal); R79.89 Other specified abnormal findings of blood chemistry; E11.8 Type 2 diabetes mellitus with unspecified complications; Z91.89 Other specified personal risk factors, not elsewhere classified; K76.0 Fatty (change of) liver, not elsewhere classified; I10 Essential (primary) hypertension
CPT/HCPCS: 36415; 80048; 80061; 80076; 82306; 82985; 84439; 84443

== ENCOUNTER → 2024-03-29 14:54 | Outpatient (BNVA) | payer MEDICARE, SELFPAY | PROVIDERS: PCP Nurse Practitioner; Referring Provider Nurse Practitioner; Visit Provider Urology | DX: C67.9 Malignant neoplasm of bladder, unspecified (principal) | CPT/HCPCS: 81003; 99215 ==

== ENCOUNTER 2024-03-29 16:20 | Outpatient (REF) | payer MEDICARE, SELFPAY ==
--- NOTE | 2024-03-29 16:00 | PAPNONF_PTH ---
PATIENT: Reva Quintana LOC: [facility] U#:[id number] AGE/SX: 78/F ROOM: RE03/29/[address]: Clayton Murguia MD : 1945 BED: DIS: 03/29/2024 SPEC #: [id number] RECD: 03/29/24 17:48 STATUS: DRE REQ #: [id number] EMILY: 03/29/24 16:[address]: Clayton Murguia DEPT: [facility] Cytology RECD BY: Jessica Salas ENTERED: 03/29/24 17:49 SP TYPE: MAHESH WOLFE DR: Shilpi Castañeda APRN Tissues: 1 - BODY FLUID CYTO(SPUTUM/URINE)[facility] Procedures: BODY FLUID CYTO(URINE/SPUTUM) Comments: [id number] (TV = 40 ml, 30 ml CYTOLYT ADDED) (REFRIGERATED)
== END 2024-03-29 16:21 | disposition home or self-care (01) ==
LOC: LBN 16:20
PROVIDERS: PCP Nurse Practitioner; Visit Provider Urology
DX: Z85.51 Personal history of malignant neoplasm of bladder (principal); N89.8 Other specified noninflammatory disorders of vagina; N39.0 Urinary tract infection, site not specified; C67.9 Malignant neoplasm of bladder, unspecified; E28.39 Other primary ovarian failure; Z01.411 Encounter for gynecological examination (general) (routine) with abnormal findings
CPT/HCPCS: 88104

== ENCOUNTER 2024-04-14 00:54 | Outpatient (CLI) | payer MEDICARE, SELFPAY ==
--- NOTE | 2024-04-14 07:30 | DI.DEXA_ITS ---
Exam(s) XR DEXA BONE DENSITY W/WO WESLEY EXAM: XR DEXA BONE DENSITY W/WO WESLEY CLINICAL HISTORY: screening for osteoporosis,Z78.0,osteopenia TECHNIQUE: Routine DEXA evaluation of the lumbar spine, hip, or forearm. COMPARISON: No exams were available for comparison FINDINGS: Performed on a Hologic unit. Lateral image: No compression fracture evident. Lumbar Spine total T-score: -1.0 which is osteopenia range Hip total T-score:-2.7 which is in osteoporosis range Independent reading at the level of the femoral neck yields T-score of -2.6 which is also in osteopo rosis range. Forearm total T-score: -2.2 which is osteopenia range IMPRESSION: Bone mineral density measures in the osteoporosis range at the hip level. Fracture risk is high. Note: Any spine fracture indicates 5x risk for subsequent spine fracture and 2x risk for subsequent h ip fracture. World Health Organization criteria for BMD interpretation classify patients: Normal...... T- Score at or above -1.0 Osteopenic... T- Score between -1.0 and -2.5 Osteoporosis... T-Score at or below -2.5
== END 2024-04-14 01:14 ==
LOC: DI 00:54
PROVIDERS: PCP Nurse Practitioner; Visit Provider Nurse Practitioner
DX: Z78.0 Asymptomatic menopausal state (principal); M85.89 Other specified disorders of bone density and structure, multiple sites; Z12.31 Encounter for screening mammogram for malignant neoplasm of breast
CPT/HCPCS: 77080

== ENCOUNTER 2024-04-14 00:55 | Outpatient (CLI) | payer MEDICARE, SELFPAY ==
--- NOTE | 2024-04-14 07:30 | DI.MAMMO_ITS ---
Exam(s) MAMMO SCREENING EXAM: MAMMO SCREENING CLINICAL HISTORY: screening,Z12.39 TECHNIQUE: Bilateral full field digital CC and MLO mammographic images were obtained with 3D tomosyn thesis and utilizing computer aided detection (CAD). COMPARISON: Available for comparison. FINDINGS: Masses/Architectural Distortion: There are scattered fibroglandular densities in the breasts. No new nodules or suspicious areas of architectural distortion are seen. Microcalcifications: No suspicious pleomorphic-type are seen. Skin Thickening/Nipple Retraction: None. IMPRESSION: 1. No significant interval change with no specific features of malignancy noted. 2. Unless there is more urgent need, screening mammography is recommended, as per [employer] guidelines. BI-RADS Category 2 - Benign Findings Breast Density - Category B - Scattered areas of fibroglandular density Breast density category C or D implies that the patient has dense breast tissue. Dense breast tissue is very common and is not abnormal but dense breast tissue can make it harder to find cancer on a ma mmogram. Also, dense breast tissue may increase their breast cancer risk. This information about the result of the mammogram report was provided to the patient to raise their awareness. Use this report when you speak with the patient about their risks for breast cancer, which includes their family hist ory. At that time, you may recommend for more screening tests (Ultrasound or MRI) as they might be us eful based on their risk. A negative radiographic report should not delay biopsy if a dominant or clinically suspicious mass is present. Up to ten percent of cancers are not identified on mammography. A negative report may reinforce clinical impression. Adenosis and dense breasts may obscure an underlying neoplasm. False positive reports average 6 to 10%. Patient will receive a letter notifying them of these results.
== END 2024-04-14 01:15 ==
LOC: DI 00:55
PROVIDERS: PCP Nurse Practitioner; Visit Provider Obstetrics & Gynecology Gynecology
DX: Z12.31 Encounter for screening mammogram for malignant neoplasm of breast (principal); R92.323 Mammographic fibroglandular density, bilateral breasts; D24.9 Benign neoplasm of unspecified breast
CPT/HCPCS: 77063; 77067

== ENCOUNTER 2024-08-31 03:38 | Outpatient (CLI) | payer MEDICARE, SELFPAY ==
[2024-08-31 12:31] LABS: Hemoglobin A1C 6.1 % (<5.7)
[2024-08-31 12:53] LABS: ALT 39 U/L (14-59); AST 29 U/L (15-37); Albumin 4.1 g/dL (3.4-5.0); Alkaline Phosphatase 72 U/L (46-116); Anion Gap 6.6 mmol/L (3-11); BUN 15 mg/dL (7-18); Bilirubin, Total 0.7 mg/dL (0.2-1.0); CO2 30.4 mmol/L (21.0-32.0); COMMENT (LAB VIEW ONLY) 73.39 mg/dL; Calcium 9.2 mg/dL (8.5-10.1); Chloride 103 mmol/L (98-107); Estimated GFR 87.37 (mL/min/1.73m2); Glucose 137 mg/dL (74-106); Microalb ug/mg Crea 6.9 ug/mg Cr; Potassium 3.3 mmol/L (3.5-5.1); Sodium 140 mmol/L (136-145); TSH (W/Ref FT4) 3.66 uIU/mL (0.36-3.74); Total Protein 8.0 g/dL (6.4-8.2); Vitamin D 25 Total 77 ng/mL (30-100)
== END 2024-08-31 03:39 | disposition home or self-care (01) ==
LOC: LOS 03:38
PROVIDERS: PCP Family Medicine; Visit Provider Family Medicine
DX: E11.9 Type 2 diabetes mellitus without complications (principal); E11.8 Type 2 diabetes mellitus with unspecified complications; M81.0 Age-related osteoporosis without current pathological fracture; E03.9 Hypothyroidism, unspecified; E06.3 Autoimmune thyroiditis
CPT/HCPCS: 36415; 80053; 82306; 82043; 82570; 83036; 84443

== ENCOUNTER 2025-01-04 01:54 | Outpatient (CLI) | payer MEDICARE, SELFPAY ==
[2025-01-04 14:09] LABS: ESR 6 mm/hr (0-30)
[2025-01-04 14:19] LABS: Hemoglobin A1C 6.1 % (<5.7)
[2025-01-04 14:21] LABS: TSH (W/Ref FT4) 3.10 uIU/mL (0.55-4.78)
[2025-01-04 14:28] LABS: ALT 22 U/L (10-49); AST 30 U/L (<34); Albumin 4.3 g/dL (3.4-5.0); Alkaline Phosphatase 73 U/L (46-116); Anion Gap 5.9 mmol/L (3-11); BUN 15 mg/dL (9-23); Bilirubin, Total 0.50 mg/dL (0.2-1.2); CO2 27.1 mmol/L (20.0-31.0); Calcium 9.4 mg/dL (8.3-10.6); Chloride 106 mmol/L (98-107); Glucose 111 mg/dL (74-106); Potassium 3.6 mmol/L (3.5-5.1); Sodium 139 mmol/L (136-145); Total Protein 7.5 g/dL (5.7-8.2)
[2025-01-04 14:54] LABS: Vitamin B12 1051 pg/mL (211-911)
[2025-01-05 13:16] LABS: Albumin 59.8 % (55.8-66.1); Albumin g/dL 4.4 g/dL (3.6-5.2); Alpha 1 g/dL 0.20 g/dL (0.15-0.40); Alpha 2 g/dL 0.70 g/dL (0.50-1.00); Beta g/dL 0.80 g/dL (0.60-1.20); Gamma g/dL 1.20 g/dL (0.60-1.60); Total Protein 7.3 g/dL (6.3-8.2)
[2025-01-05 15:33] LABS: Albumin, Urine % 17.4 %; Albumin, Urine mg/dL 1 mg/dL; Globulins, Urine % 82.6 %; Globulins, Urine mg/dL 7 mg/dL
== END 2025-01-04 01:55 | disposition home or self-care (01) ==
LOC: LOS 01:54
PROVIDERS: PCP Family Medicine; Visit Provider Family Medicine
DX: E03.9 Hypothyroidism, unspecified (principal); E06.3 Autoimmune thyroiditis; Z00.00 Encounter for general adult medical examination without abnormal findings; E11.8 Type 2 diabetes mellitus with unspecified complications; R20.2 Paresthesia of skin
CPT/HCPCS: 36415; 80053; 84156; 84166; 85652; 86335; 82607; 83036; 84165; 84443

== ENCOUNTER → 2025-02-07 14:32 | Outpatient (CLI) | payer MEDICARE, SELFPAY ==
--- NOTE | 2025-02-07 17:00 | DI.RAD_ITS ---
Exam(s) XR CHEST 2V PA LATERAL EXAM: XR CHEST 2V PA LATERAL CLINICAL HISTORY: R05.9,Z20.7 Cough, chest tightness, Exposure to parasitic disease TECHNIQUE: 2D digital imaging was performed. Two views. COMPARISON: CR XR CHEST 2V PA LATERAL from 10/28/[address] CHEST WO from 04/01/2023 FINDINGS: HEART: Normal size. Aorta: Not dilated. PULMONARY VASCULATURE: Normal. MEDIASTINUM: Unremarkable. LUNGS: Mild chronic interstitial changes, otherwise clear. PLEURAL SPACE: No pleural effusion or pneumothorax. BONE:Unremarkable for age. SOFT TISSUES: Unremarkable. IMPRESSION: No acute abnormality. DATA REPOSITORY: RADIATION DOSE DELIVERED:
== END ==
LOC: DI 03-01 14:33
PROVIDERS: PCP Nurse Practitioner Family; Visit Provider Family Medicine
DX: R05.9 Cough, unspecified (principal); Z20.7 Contact with and (suspected) exposure to pediculosis, acariasis and other infestations
CPT/HCPCS: 71046

== ENCOUNTER 2025-02-07 16:52 | Outpatient (CLI) | payer MEDICARE, SELFPAY ==
[2025-02-07 17:52] LABS: Abs Immature Grans 0.04 10^3/uL (0.0-0.06); HCT 38.4 % (36.0-46.0); HGB 13.0 g/dL (11.2-15.7); Immature Grans % 0.3 %; MCH 31.9 pg (27.0-33.0); MCHC 33.9 % (32.0-36.0); MCV 94 fL (80-95); MPV 9.9 fL (8.0-11.0); Platelet Count 200 10^3/uL (130-400); RBC 4.08 10^6/uL (3.93-5.22); RDW 11.9 % (11.7-14.6); RDW-SD 41.1 fL; WBC 12.61 10^3/uL (4.4-10.8)
[2025-02-07 18:11] LABS: ALT 25 U/L (10-49); AST 28 U/L (<34); Albumin 4.4 g/dL (3.2-5.0); Alkaline Phosphatase 80 U/L (46-116); Anion Gap 9.3 mmol/L (3-11); BUN 18 mg/dL (9-23); Bilirubin, Total 0.7 mg/dL (0.2-1.2); CO2 27.0 mmol/L (20.0-31.0); Calcium 9.5 mg/dL (8.3-10.6); Chloride 99 mmol/L (98-107); Glucose 146 mg/dL (74-106); Potassium 3.7 mmol/L (3.5-5.1); Sodium 135 mmol/L (136-145); Total Protein 7.8 g/dL (5.7-8.2)
[2025-02-12 14:26] LABS: Histoplasma/Blastomyces Result Not Detected (NotDetected); Histoplasma/Blastomyces Value Not Detected
== END 2025-02-07 16:53 | disposition home or self-care (01) ==
PROVIDERS: PCP Nurse Practitioner Family; Visit Provider Family Medicine
DX: Z20.7 Contact with and (suspected) exposure to pediculosis, acariasis and other infestations (principal); R05.9 Cough, unspecified
CPT/HCPCS: 80053; 87040; 87449; 85025